=== PATIENT | female | born 1980 | race Caucasian/White ===

== ENCOUNTER 2020-04-19 10:04 | Outpatient (REF) | payer OTHER, SELFPAY ==
--- NOTE | 2020-04-19 | US_ITS ---
EXAMINATION: US THYROID CLINICAL INFORMATION: Thyroid nodule. COMPARISON: Ultrasound soft tissue head/neck thyroid dated 01/14/2019 and 07/04/2017. TECHNIQUE: Linear transducer danielle-scale and color Doppler examination with attention to the region of the thyroid. FINDINGS: SIZE: Measurements of the thyroid lobes and nodules are given in sagittal, anteroposterior and transverse dimensions respectively. Right Thyroid Lobe: 5.2 x 1.5 x 1.6 cm, volume 6.4 mL. Previously 5.9 x 1.4 x 1.4 cm, volume 6.02 mL. Parenchyma: The gland echotexture is homogeneous. Thyroid vascularity is normal. Left Thyroid Lobe: 5.1 x 1.7 x 1.7 cm, volume 7.8 mL. Previously 5.4 x 1.6 x 1.8 cm, volume 8.1 mL. Parenchyma: The gland echotexture is homogeneous. Thyroid vascularity is normal. Isthmus: 0.2 cm in maximum AP dimension. Previously 0.3 cm. RIGHT THYROID LOBE: There is 1 nodule seen. 1. Location: Inferior. Size: 0.8 x 0.7 x 0.6 cm. Previous: 0.8 x 0.8 x 0.6 cm. Nodule characteristics: Isoechoic, smoothly marginated with hypoechoic rind and intranodular flow. ISTHMUS: No nodules. LEFT THYROID LOBE: No nodules. NODES: No lymphadenopathy is seen in the tissue surrounding the thyroid gland. US/US thyroid IMPRESSION: 1. Stable subcentimeter nodule right thyroid gland lower pole. 2. Otherwise unremarkable thyroid ultrasound.
[2020-04-19 12:41] LABS: Free T4 (Free Thyroxine) 0.96 ng/dL (0.71-1.85); Thyroid Stimulating Hormone 1.82 uIU/mL (0.32-4.0); Vitamin D 25-OH Total 33.2 ng/mL (>30)
== END 2020-04-19 10:05 | disposition home or self-care (01) ==
LOC: HO.US 10:04
PROVIDERS: PCP Internal Medicine; Visit Provider Internal Medicine
DX: E04.1 Nontoxic single thyroid nodule (principal); E66.01 Morbid (severe) obesity due to excess calories; E55.9 Vitamin D deficiency, unspecified
CPT/HCPCS: 36415; 76536; 82306; 84439; 84443

== ENCOUNTER 2020-04-25 07:29 | Outpatient (REF) | payer OTHER, SELFPAY ==
[2020-04-25 09:55] LABS: Estimated Average Glucose 117 mg/dL; Hemoglobin A1c % 5.7 %
[2020-04-25 09:59] LABS: Albumin Level 4.1 g/dL (3.5-5.0); Estimated Glomerular Filt Rate > 60; Phosphorus 3.1 mg/dL (2.7-4.5)
[2020-04-25 10:11] LABS: Glucose Fasting 108 mg/dL (60-99)
[2020-04-25 10:14] LABS: Vitamin D 25-OH Total 30.9 ng/mL (>30)
[2020-04-25 11:23] LABS: Glucose 1 Hour 221 mg/dL
[2020-04-25 11:30] LABS: Glucose 2 Hour 160 mg/dL
[2020-04-26 17:01] LABS: PTHI 81 pg/mL (14-64)
[2020-04-26 19:47] LABS: Thyroglobulin Antibodies <1 IU/mL (< or = 1); Thyroid Peroxidase Antibodies 1 IU/mL (<9)
== END 2020-04-25 07:30 | disposition home or self-care (01) ==
LOC: HO.LAB 07:29
PROVIDERS: PCP Internal Medicine; Visit Provider Internal Medicine
DX: E03.9 Hypothyroidism, unspecified (principal); E04.1 Nontoxic single thyroid nodule; E55.9 Vitamin D deficiency, unspecified; E66.01 Morbid (severe) obesity due to excess calories; E21.3 Hyperparathyroidism, unspecified; R13.10 Dysphagia, unspecified
CPT/HCPCS: 36415; 82040; 82306; 82565; 83036; 83970; 84100; 86376; 86800; 99212

== ENCOUNTER 2020-05-02 19:32 | Emergency (ER) | payer OTHER, SELFPAY ==
[2020-05-02 19:37] VITALS: BP 117/75; PULSE 99; RESP 18; TEMP 36.5; O2SAT 99; BMI 52.2
--- NOTE | 2020-05-02 19:40 | ED.GENADULT ---
HPI - General Adult General Chief complaint: Allergic Reaction Stated complaint: Allergic reaction Time Seen by Provider: 05/02/20 19:39 Related Data Home Medications Medication Instructions Recorded Confirmed albuterol sulfate 90 mcg/actuation INHALATION 04/25/20 04/25/20 aerosol inhaler whurrssfyx-psavfsjhdnksi-ekoudeen tab PO 04/25/20 04/25/20 50 mg-325 mg-40 mg tablet docusate sodium 100 mg capsule 100 mg PO DAILY 04/25/20 04/25/20 duloxetine 20 mg capsule,delayed 20 mg PO DAILY 04/25/20 04/25/20 release duloxetine 60 mg capsule,delayed 60 mg PO DAILY 04/25/20 04/25/20 release hydroxyzine pamoate 25 mg capsule 25 mg PO TID 04/25/20 04/25/20 hydroxyzine pamoate 50 mg capsule 50 mg PO TID 04/25/20 04/25/20 lamotrigine 100 mg tablet 100 mg PO BID 04/25/20 04/25/20 levetiracetam 1,000 mg tablet 1,000 mg PO BID 04/25/20 04/25/20 omeprazole 40 mg capsule,delayed 40 mg PO DAILY 04/25/20 04/25/20 release simethicone 80 mg chewable tablet mg PO 04/25/20 04/25/20 zolpidem 10 mg tablet 10 mg PO BEDTIME PRN 04/25/20 04/25/20 Previous Rx's Medication Instructions Recorded fluticasone propionate 110 2 puff PO BID #12 g 04/14/20 mcg/actuation HFA aerosol inhaler cholecalciferol (vitamin D3) 50 50 mcg PO DAILY 30 Days #30 cap 04/25/20 mcg (2,000 unit) capsule Allergies Allergy/AdvReac Type Severity Reaction Status Date / Time shrimp [SHRIMP] Allergy Unknown UNKNOWN Verified 05/02/20 19:37 shellfish Allergy Unknown shortness Uncoded 06/15/19 00:00 of breath PMFSH Past Medical History Medical History Acquired hypothyroidism Bipolar 1 disorder Condyloma acuminata Hyperparathyroidism Hypothyroidism Mild intermittent asthma in adult without complication Morbid obesity Osteoporosis Thyroid nodule Varicose veins of bilateral lower extremities with pain Vitamin D deficiency Surgical History History of section History of partial hysterectomy History of tubal ligation Hx of removal of cyst Family History Family History Father HTN (hypertension) Glaucoma Mental disorder Psoriasis Diabetes Mother Osteoporosis Kidney disease Arthritis Son No problems noted. Son No problems noted. Daughter No problems noted. Social History Social History Smoking Status: Current every day smoker Tobacco Type: Cigarette Packs Per Day: 1 Physical Exam Vital Signs: Vital Signs: Last Vital Signs Temp 97.7 F 05/02/20 19:37 Pulse 99 05/02/20 19:37 Resp 18 05/02/20 19:37 BP 117/75 05/02/20 19:37 Pulse Ox 99 05/02/20 19:37 Body Mass Index 52.2 Course Course Course Narrative: Rapid Medical assessment on arrival to ED: 39 y/o female w/ hx asthma, obesity, bipolar w/ shellfish allergy presenting with SOB, wheezing, N/V and feeling of throat tightness about 15 minutes after eating lobster in a restaurant. Vomited up Benadryl. Upon arrival tachypenic and anxious, upper airway wheeze. IV Benadryl, IV Solumedol and Pepcid ordered. No pharyngeal edema. To go into ER now. Discharge Plan Discharge Prescriptions: No Action Flovent HFA 110 mcg/actuation HFA aerosol inhaler 2 puff PO BID Qty: 12 RF: 2 omeprazole 40 mg capsule,delayed release(DR/EC) 40 mg PO DAILY RF: 0 hydroxyzine pamoate 25 mg capsule 25 mg PO TID RF: 0 hydroxyzine pamoate 50 mg capsule 50 mg PO TID RF: 0 hmefbdxpqz-zxxjzbhcrnxlx-eipl 50-325-40 mg tablet PO RF: 0 levetiracetam 1,000 mg tablet 1,000 mg PO BID RF: 0 duloxetine 60 mg capsule,delayed release(DR/EC) 60 mg PO DAILY RF: 0 lamotrigine 100 mg tablet 100 mg PO BID RF: 0 albuterol sulfate 90 mcg/actuation HFA aerosol inhaler inhalation RF: 0 duloxetine 20 mg capsule,delayed release(DR/EC) 20 mg PO DAILY RF: 0 zolpidem 10 mg tablet 10 mg PO BEDTIME PRNRF: 0 simethicone 80 mg tablet,chewable PO RF: 0 docusate sodium 100 mg capsule 100 mg PO DAILY RF: 0 cholecalciferol (vitamin D3) 50 mcg (2,000 unit) capsule 50 mcg PO DAILY 30 Days Qty: 30 RF: 11
--- NOTE | 2020-05-02 19:52 | ED.ALLEREA ---
HPI - Allergic Reaction General Chief complaint: Allergic Reaction Stated complaint: Allergic reaction Time Seen by Provider: 05/02/20 19:39 Source: patient Limitations: no limitations History of Present Illness HPI narrative: Patient presents to ED for allergic reaction after eating lobster. Patient has known history to fish and ate the lobster. Patient states soon after eating the lobster she felt throat itching, skin itching, and mild shortness of breath. Related Data Home Medications Medication Instructions Recorded Confirmed albuterol sulfate 90 mcg/actuation INHALATION 04/25/20 04/25/20 aerosol inhaler vqxsizrpqh-ntjbpyrbbzvtr-ckypulzx tab PO 04/25/20 04/25/20 50 mg-325 mg-40 mg tablet docusate sodium 100 mg capsule 100 mg PO DAILY 04/25/20 04/25/20 duloxetine 20 mg capsule,delayed 20 mg PO DAILY 04/25/20 04/25/20 release duloxetine 60 mg capsule,delayed 60 mg PO DAILY 04/25/20 04/25/20 release hydroxyzine pamoate 25 mg capsule 25 mg PO TID 04/25/20 04/25/20 hydroxyzine pamoate 50 mg capsule 50 mg PO TID 04/25/20 04/25/20 lamotrigine 100 mg tablet 100 mg PO BID 04/25/20 04/25/20 levetiracetam 1,000 mg tablet 1,000 mg PO BID 04/25/20 04/25/20 omeprazole 40 mg capsule,delayed 40 mg PO DAILY 04/25/20 04/25/20 release simethicone 80 mg chewable tablet mg PO 04/25/20 04/25/20 zolpidem 10 mg tablet 10 mg PO BEDTIME PRN 04/25/20 04/25/20 Previous Rx's Medication Instructions Recorded fluticasone propionate 110 2 puff PO BID #12 g 04/14/20 mcg/actuation HFA aerosol inhaler cholecalciferol (vitamin D3) 50 50 mcg PO DAILY 30 Days #30 cap 04/25/20 mcg (2,000 unit) capsule diphenhydramine HCl [Benadryl] 25 mg PO TID PRN #30 cap 05/02/20 famotidine [Pepcid] 20 mg PO BID #14 tab 05/02/20 prednisone 40 mg PO DAILY #10 tab 05/02/20 Allergies Allergy/AdvReac Type Severity Reaction Status Date / Time shrimp [SHRIMP] Allergy Unknown UNKNOWN Verified 05/02/20 19:37 shellfish Allergy Unknown shortness Uncoded 06/15/19 00:00 of breath Review of Systems Review of Systems: Yes all other systems are reviewed and are negative Constitutional: Constitutional: Reports as per HPI and Reports no additional constitutional complaints Eyes: Eyes: Reports as per HPI and Reports no additional eye complaints ENT: Reports system reviewed and no additional complaints, except as documented and Reports as per HPI Comments: Itchy throat Cardiovascular: Cardiovascular: Reports as per HPI and Reports no additional cardiovascular complaints Respiratory: Respiratory: Reports as per HPI, Reports no additional respiratory complaints and Reports cough Comments: Coughing due to allergic reaction Gastrointestinal: Gastrointestinal: Reports as per HPI and Reports no additional gastrointestinal complaints Musculoskeletal: Musculoskeletal: Reports no additional musculoskeletal complaints and Reports as per HPI Neurologic: Reports system reviewed and no additional complaints, except as documented and Reports as per HPI Psychiatric: Psychiatric: Reports no additional psychiatric complaints and Reports as per HPI [facility] Past Medical History Medical History Acquired hypothyroidism Bipolar 1 disorder Condyloma acuminata Hyperparathyroidism Hypothyroidism Mild intermittent asthma in adult without complication Morbid obesity Osteoporosis Thyroid nodule Varicose veins of bilateral lower extremities with pain Vitamin D deficiency Surgical History History of section History of partial hysterectomy History of tubal ligation Hx of removal of cyst Family History Family History Father HTN (hypertension) Glaucoma Mental disorder Psoriasis Diabetes Mother Osteoporosis Kidney disease Arthritis Son No problems noted. Son No problems noted. Daughter No problems noted. Social History Social History Alcohol intake: never Smoking Status: Current every day smoker Tobacco Type: Cigarette Packs Per Day: 1 Use of substances other than those prescribed or required for medical reasons: No Advance Directives: No Physical Exam Vital Signs: Vital Signs: Last Vital Signs Temp 97.7 F 05/02/20 19:37 Pulse 82 05/02/20 21:52 Resp 16 05/02/20 21:52 BP 125/87 05/02/20 21:52 Pulse Ox 96 05/02/20 21:52 Body Mass Index 52.2 Const: General: cooperative, healthy appearing, comfortable and no acute distress Orientation/consciousness: patient oriented x3 HENMT: Other: Negative for any lip swelling, tongue swelling, uvula swelling. Uvula is midline Head: Yes normal to inspection, Yes No palpable skull fracture present, Yes normocephalic and Yes atraumatic Throat: Yes posterior oropharynx normal, Yes tonsils normal and Yes uvula midline Eyes: General: appearance normal, both eyes and all related structures Neck: Neck: Yes normal visual inspection, Yes full ROM, Yes no lymphadenopathy, Yes no meningeal signs, Yes trachea midline, Yes supple and No tender Chest: Chest palpation & inspection: normal inspection of the chest and normal palpation of entire chest wall Resp: Effort & Inspection: normal respiratory effort and able to speak in complete sentences Auscultation: clear to auscultation bilaterally Cardio: Jugular venous distension: no JVD Heart sounds: S1 normal heart sound present and S2 normal heart sound present GI: Inspection: Yes normal to inspection and No abdominal wall ecchymosis Palpation (GI): Soft to palpation, not firm, nontender, no guarding and not rigid : General: No CVA tenderness and Yes no CVA tenderness Back/Spine/Pelvis: Back: no CVA tenderness, No CVA tenderness and No back tenderness Skin: General skin exam: no rashes or lesions noted and elasticity normal Neuro: General: patient oriented x3, gait normal, no meningeal signs and CN's II-XI intact bilaterally Cranial nerves: Yes CN's II-XII intact bilaterally Extrem: General: Yes normal to inspection and Yes full ROM Course Course Course Narrative: Presently no indication for epinephrine. Patient speaking in full sentences and O2 saturation room air 99%. Negative for any oral swelling. Patient will be given Benadryl, Pepcid, and Solu-Medrol. Reevaluation(s) Reevaluation #1: Patient presently sleeping and not in any distress. Patient allergic reaction has improved. Patient has not had any rash or lip swelling or throat swelling since being here for 2 hours. Patient will be discharged with allergy medications. Time: 21:35 MDM - Allergic Reaction MDM Narrative Medical decision making narrative: Allergic reaction Discharge Plan Discharge Clinical Impression: Allergic reaction Patient Disposition: Home, Self-Care Instructions: General Allergic Reaction (ED) Additional Instructions: Return to the ED for swelling of lips, swelling of lung, shortness of breath, rash, sensation of throat closing, or or any other concerning symptoms. Please follow-up with PCP Prescriptions: New prednisone 20 mg tablet 40 mg PO DAILY Qty: 10 RF: 0 famotidine [Pepcid] 20 mg tablet 20 mg PO BID Qty: 14 RF: 0 diphenhydramine HCl [Benadryl] 25 mg capsule 25 mg PO TID PRN (Reason: allergic reaction) Qty: 30 RF: 0 No Action Flovent HFA 110 mcg/actuation HFA aerosol inhaler 2 puff PO BID Qty: 12 RF: 2 omeprazole 40 mg capsule,delayed release(DR/EC) 40 mg PO DAILY RF: 0 hydroxyzine pamoate 25 mg capsule 25 mg PO TID RF: 0 hydroxyzine pamoate 50 mg capsule 50 mg PO TID RF: 0 qmcvyrbvad-aakmoxlwglmzl-mfqv 50-325-40 mg tablet PO RF: 0 levetiracetam 1,000 mg tablet 1,000 mg PO BID RF: 0 duloxetine 60 mg capsule,delayed release(DR/EC) 60 mg PO DAILY RF: 0 lamotrigine 100 mg tablet 100 mg PO BID RF: 0 albuterol sulfate 90 mcg/actuation HFA aerosol inhaler inhalation RF: 0 duloxetine 20 mg capsule,delayed release(DR/EC) 20 mg PO DAILY RF: 0 zolpidem 10 mg tablet 10 mg PO BEDTIME PRNRF: 0 simethicone 80 mg tablet,chewable PO RF: 0 docusate sodium 100 mg capsule 100 mg PO DAILY RF: 0 cholecalciferol (vitamin D3) 50 mcg (2,000 unit) capsule 50 mcg PO DAILY 30 Days Qty: 30 RF: 11 Interventions: ED Discharge Assessment Last Done: 05/02/20 21:51 Discharge Date/Time: 05/02/20 21:58 Print Language: Greenlandic
[2020-05-02] MEDS: Famotidine/PF 20 MG/2 ML VIAL IVPUSH (19:58)
[2020-05-02] MEDS: methylPREDNISolone Sod Succ/PF 125 MG/2 ML VIAL IVPUSH (19:58)
[2020-05-02] MEDS: diphenhydrAMINE HCL 50 MG/ML VIAL IVPUSH (19:58)
[2020-05-02 21:52] VITALS: BP 125/87; PULSE 82; RESP 16; O2SAT 96
== END 2020-05-02 21:58 | disposition home or self-care (01) ==
PROVIDERS: Emergency Provider Student in an Organized Health Care Education/Training Program
DX: T78.1XXA Other adverse food reactions, not elsewhere classified, initial encounter (principal); Z91.013 Allergy to seafood; X58.XXXA Exposure to other specified factors, initial encounter
CPT/HCPCS: 96374; 96375; 99284; J1200; J2930

== ENCOUNTER → 2020-05-12 10:33 | Outpatient (BNVA) | payer OTHER, SELFPAY | PROVIDERS: PCP Internal Medicine; Visit Provider Physician Assistant | DX: E66.01 Morbid (severe) obesity due to excess calories (principal); Z68.43 Body mass index [BMI] 50.0-59.9, adult | CPT/HCPCS: 99212 ==

== ENCOUNTER → 2020-05-27 08:27 | Outpatient (BNVA) | payer OTHER, SELFPAY | PROVIDERS: PCP Internal Medicine; Visit Provider Dietitian, Registered ==

== ENCOUNTER → 2020-06-02 11:42 | Outpatient (BNVA) | payer OTHER, SELFPAY | PROVIDERS: PCP Internal Medicine; Visit Provider Internal Medicine ==

== ENCOUNTER 2020-06-23 10:03 | Outpatient (REF) | payer OTHER, SELFPAY ==
--- NOTE | ~2020-06-23 | XR_ITS ---
EXAMINATION: XR CHEST CLINICAL INFORMATION: Shortness of breath. COMPARISON: Chest radiograph dated 10/27/2019. TECHNIQUE: 2 views of the chest were obtained. FINDINGS: The lungs are clear. The cardiomediastinal silhouette is normal in size. There is no pleural effusion or pneumothorax. No acute osseous abnormality. XR/XR chest 2V IMPRESSION: No acute cardiopulmonary findings.
--- NOTE | ~2020-06-23 | MM_ITS ---
EXAMINATION: MM SCREENING DIGITAL BREAST TOMOSYNTHESIS, BILATERAL CLINICAL INFORMATION: Screening. Asymptomatic. The lifetime risk of breast cancer based on the Tyrer-Cuzick Model is 18.4%. COMPARISON: Mammography: June 17, 2019 and studies dating back to May 30, 2007 TECHNIQUE: Digital breast tomosynthesis is performed in both the craniocaudal and mediolateral oblique views along with computer-aided detection (CAD). Synthesized 2D images are generated from the tomosynthesis. FINDINGS: There are scattered areas of fibroglandular density (ACR BI-RADS breast composition Category b). There are no significant masses, abnormal calcifications, or other abnormalities. MM/MM tomosynthesis screening BI IMPRESSION: There are no significant changes from prior study. ASSESSMENT: BI-RADS 1: Negative RECOMMENDATION: Routine annual mammography screening. This patient's information was entered into a reminder system with a target due date for their next mammogram.
--- NOTE | 2020-06-23 11:03 | ECG_ITS ---
Test Reason : SOB Blood Pressure : / mmHG Vent. Rate : 092 BPM Atrial Rate : 092 BPM P-R Int : 138 ms QRS Dur : 076 ms QT Int : 346 ms P-R-T Axes : 005 016 047 degrees QTc Int : 427 ms Normal sinus rhythm Normal ECG When compared to the previous EKG of No significant changes seen Referred By: Elly Benoit Electronically Signed By:KENNY WEBSTER MD
[2020-06-23 11:41] LABS: MANUAL DIFF FLAG NO
[2020-06-23 11:53] LABS: Basophils Percent Auto 0.7 % (0-2); Eosinophils Absolute Auto 0.1 X10*3/uL (0.0-0.4); Hematocrit 42.2 % (37-47); Imm Gran Abs Auto 0.02 X10*3/uL (0.00-0.03); Imm Gran Pct Auto 0.3 % (0.0-0.4); Lymphocytes Absolute Auto 1.9 X10*3/uL (1.2-4.9); Lymphocytes Percent Auto 31.7 % (20-40); Mean Corpuscular HGB Conc 33.2 g/dl (31.0-35.0); Mean Corpuscular Volume 96.3 fL (80-98); Mean Platelet Volume 10.5 fL (9.4-12.3); Monocytes Absolute Auto 0.4 X10*3/uL (0.1-1.2); Monocytes Percent Auto 7.2 % (2-11); Neutrophils Absolute Auto 3.5 X10*3/uL (2.0-8.3); Neutrophils Percent Auto 58.1 % (45-73); Platelet Count 310 X10*3/uL (160-400); Red Blood Count 4.38 X10*6/uL (4.20-5.50); Red Cell Distribution Width 12.4 % (11.0-16.0); White Blood Count 6.1 X10*3/uL (4.8-10.8)
[2020-06-23 12:07] LABS: Alanine Aminotransferase 66 U/L (0-31); Albumin Level 4.4 g/dL (3.5-5.0); Alkaline Phosphatase 85 U/L (39-117); Anion Gap 12 (12-20); Aspartate Amino Transferase 27 U/L (5-31); Bilirubin Total 0.3 mg/dL (0.0-1.0); Blood Urea Nitrogen 15 mg/dL (9-16); C Reactive Protein 0.17 mg/dL (< or = 0.50); Calcium 9.1 mg/dL (8.4-10.2); Carbon Dioxide 27 mmol/L (22-29); Chloride 105 mmol/L (96-108); Cholesterol 186 mg/dL; Estimated Glomerular Filt Rate > 60; Glucose Fasting 110 mg/dL (60-99); HDL Cholesterol 42 mg/dL; Iron 63 mcg/dL (30-160); LDL Cholesterol Calculated 124 mg/dl; Percent Iron Saturation 18 % (15-50); Potassium 4.3 mmol/L (3.3-5.1); Sodium 140 mmol/L (135-145); Total Iron Binding Capacity 345 mcg/dL (228-428); Total Protein 7.3 g/dL (6.5-8.0); Triglycerides 103 mg/dL; Unsaturated Iron Binding 282 ug/dL
[2020-06-23 12:30] LABS: Ferritin 25 ng/mL (10-250); TSH reflex Free T4 1.93 uIU/mL (0.32-4.0); Vitamin D 25-OH Total 43.1 ng/mL (>30)
[2020-06-23 12:34] LABS: Alanine Aminotransferase 64 U/L (0-31); Aspartate Amino Transferase 26 U/L (5-31)
[2020-06-23 13:15] LABS: Estimated Average Glucose 117 mg/dL; Hemoglobin A1c % 5.7 %
[2020-06-24 11:32] LABS: Insulin Level Total 20.2 uIU/mL
[2020-06-25 10:31] LABS: Calcium (PTHI) 9.2 mg/dL (8.6-10.2); PTHI 63 pg/mL (14-64)
[2020-06-25 11:13] LABS: Vitamin B12 195 pg/mL (200-900)
[2020-06-27 03:57] LABS: Zinc 70 mcg/dL (60-130)
[2020-06-27 06:17] LABS: Vitamin B1 10 nmol/L (8-30)
[2020-06-29 14:12] LABS: Vitamin A 33 mcg/dL (38-98)
== END 2020-06-23 10:04 | disposition home or self-care (01) ==
LOC: HO.MAMMO 10:03
PROVIDERS: Absent Provider Physician Assistant; PCP Internal Medicine; Visit Provider Internal Medicine
DX: Z12.31 Encounter for screening mammogram for malignant neoplasm of breast (principal); R06.02 Shortness of breath; E66.01 Morbid (severe) obesity due to excess calories; Z68.43 Body mass index [BMI] 50.0-59.9, adult
CPT/HCPCS: 36415; 71046; 77063; 77067; 80053; 80061; 82306; 82607; 82728; 82746; 83036; 83525; 83540; 83970; 84425; 84443; 84450; 84460; 84590; 84630; 85025; 86140; 93005

== ENCOUNTER → 2020-07-01 15:35 | Outpatient (BNVA) | payer OTHER, SELFPAY | PROVIDERS: PCP Internal Medicine; Visit Provider Dietitian, Registered ==

== ENCOUNTER 2020-07-12 14:03 | Outpatient (REF) | payer OTHER, SELFPAY ==
[2020-07-13 15:27] LABS: H Pylori Breath Test DETECTED (NOT DETECTED)
== END 2020-07-12 14:04 | disposition home or self-care (01) ==
LOC: HO.LNP 14:03
PROVIDERS: PCP Internal Medicine; Visit Provider Surgery
DX: E66.01 Morbid (severe) obesity due to excess calories (principal); Z68.43 Body mass index [BMI] 50.0-59.9, adult; E50.9 Vitamin A deficiency, unspecified
CPT/HCPCS: 83013; 99212

== ENCOUNTER → 2020-07-12 15:19 | Outpatient (BNVA) | payer OTHER, SELFPAY | PROVIDERS: PCP Internal Medicine; Visit Provider Surgery | DX: Z01.818 Encounter for other preprocedural examination (principal); E50.9 Vitamin A deficiency, unspecified | CPT/HCPCS: 99211 ==

== ENCOUNTER → 2020-07-19 08:08 | Outpatient (BNVA) | payer OTHER, SELFPAY | PROVIDERS: PCP Internal Medicine; Visit Provider Dietitian, Registered | DX: E66.01 Morbid (severe) obesity due to excess calories (principal) | CPT/HCPCS: 97803 ==

== ENCOUNTER → 2020-08-02 14:28 | Outpatient (BNVA) | payer OTHER, SELFPAY | PROVIDERS: PCP Internal Medicine; Visit Provider Surgery | DX: E66.01 Morbid (severe) obesity due to excess calories (principal); Z68.43 Body mass index [BMI] 50.0-59.9, adult | CPT/HCPCS: 99212 ==

== ENCOUNTER → 2020-08-04 08:10 | Outpatient (BNVA) | payer OTHER, SELFPAY | PROVIDERS: PCP Internal Medicine; Visit Provider Dietitian, Registered | DX: E66.01 Morbid (severe) obesity due to excess calories (principal) ==

== ENCOUNTER 2020-08-23 13:48 | Outpatient (REF) | payer OTHER, SELFPAY ==
[2020-08-24 14:47] LABS: H Pylori Breath Test NOT DETECTED (NOT DETECTED)
== END 2020-08-23 13:49 | disposition home or self-care (01) ==
LOC: HO.LNP 13:48
PROVIDERS: PCP Internal Medicine; Referring Provider Internal Medicine; Visit Provider Surgery
DX: E66.01 Morbid (severe) obesity due to excess calories (principal); Z68.42 Body mass index [BMI] 45.0-49.9, adult; Z11.0 Encounter for screening for intestinal infectious diseases
CPT/HCPCS: 83013; 99211; 99212

== ENCOUNTER → 2020-08-25 08:09 | Outpatient (BNVA) | payer OTHER, SELFPAY | PROVIDERS: PCP Internal Medicine; Visit Provider Dietitian, Registered | DX: E66.01 Morbid (severe) obesity due to excess calories (principal); Z68.42 Body mass index [BMI] 45.0-49.9, adult | CPT/HCPCS: 97803 ==

== ENCOUNTER 2020-09-07 11:15 | Outpatient (REF) | payer OTHER, SELFPAY ==
[2020-09-13 10:17] LABS: Vitamin A 49 mcg/dL (38-98)
== END 2020-09-07 11:16 | disposition home or self-care (01) ==
LOC: HO.LAB 11:15
PROVIDERS: PCP Internal Medicine; Visit Provider Surgery
DX: Z01.818 Encounter for other preprocedural examination (principal); E50.9 Vitamin A deficiency, unspecified
CPT/HCPCS: 36415; 84590

== ENCOUNTER → 2020-09-16 15:20 | Outpatient (BNVA) | payer OTHER, SELFPAY | PROVIDERS: PCP Internal Medicine; Referring Provider Internal Medicine; Visit Provider Surgery | DX: E66.01 Morbid (severe) obesity due to excess calories (principal); Z68.42 Body mass index [BMI] 45.0-49.9, adult | CPT/HCPCS: 99212 ==

== ENCOUNTER → 2020-10-18 08:58 | Outpatient (BNVA) | payer OTHER, SELFPAY | PROVIDERS: PCP Internal Medicine; Referring Provider Internal Medicine; Visit Provider Surgery | DX: E66.01 Morbid (severe) obesity due to excess calories (principal); Z68.42 Body mass index [BMI] 45.0-49.9, adult | CPT/HCPCS: 99212 ==

== ENCOUNTER → 2020-11-15 09:36 | Outpatient (BNVA) | payer OTHER, SELFPAY | PROVIDERS: PCP Internal Medicine; Visit Provider Surgery | DX: E66.01 Morbid (severe) obesity due to excess calories (principal); Z68.42 Body mass index [BMI] 45.0-49.9, adult | CPT/HCPCS: 99212 ==

== ENCOUNTER 2020-11-23 08:07 | Outpatient (REF) | payer OTHER, SELFPAY ==
[2020-11-23 10:15] LABS: Estimated Average Glucose 117 mg/dL; Hemoglobin A1c % 5.7 %
[2020-11-23 10:23] LABS: Alanine Aminotransferase 49 U/L (0-31); Albumin Level 4.1 g/dL (3.5-5.0); Alkaline Phosphatase 75 U/L (39-117); Anion Gap 14 (12-20); Aspartate Amino Transferase 22 U/L (5-31); Bilirubin Total 0.2 mg/dL (0.0-1.0); Blood Urea Nitrogen 13 mg/dL (9-16); Calcium 9.2 mg/dL (8.4-10.2); Carbon Dioxide 24 mmol/L (22-29); Chloride 107 mmol/L (96-108); Estimated Glomerular Filt Rate > 60; Glucose Fasting 111 mg/dL (60-99); Phosphorus 3.9 mg/dL (2.7-4.5); Sodium 141 mmol/L (135-145); Total Protein 6.8 g/dL (6.5-8.0)
[2020-11-23 10:28] LABS: Free T4 (Free Thyroxine) 0.97 ng/dL (0.71-1.85); Thyroid Stimulating Hormone 2.89 uIU/mL (0.32-4.0); Vitamin D 25-OH Total 34.5 ng/mL (>30)
[2020-11-24 15:56] LABS: Calcium (PTHI) 9.1 mg/dL (8.6-10.2); PTHI 46 pg/mL (14-64)
[2020-11-29 19:27] LABS: Cotinine, U <2 ng/mL; Nicotine, U <2 ng/mL
== END 2020-11-23 08:08 | disposition home or self-care (01) ==
LOC: HO.LAB 08:07
PROVIDERS: Internal Medicine; PCP Internal Medicine; Visit Provider Surgery
DX: R73.02 Impaired glucose tolerance (oral) (principal); E03.9 Hypothyroidism, unspecified; E55.9 Vitamin D deficiency, unspecified; Z87.891 Personal history of nicotine dependence
CPT/HCPCS: 36415; 80053; 80323; 82306; 83036; 83970; 84100; 84439; 84443

== ENCOUNTER → 2020-12-01 11:07 | Outpatient (BNVA) | payer OTHER, SELFPAY | PROVIDERS: PCP Internal Medicine; Visit Provider Internal Medicine ==

== ENCOUNTER → 2020-12-02 09:06 | Outpatient (BNVA) | payer OTHER, SELFPAY | PROVIDERS: PCP Internal Medicine; Referring Provider Internal Medicine; Visit Provider Physician Assistant ==

== ENCOUNTER 2020-12-21 14:01 | Inpatient (IN) | payer OTHER, SELFPAY ==
[2020-12-13 13:35] VITALS: BMI 44.2
--- NOTE | 2020-12-15 11:49 | ECG_ITS ---
Test Reason : sob Blood Pressure : / mmHG Vent. Rate : 074 BPM Atrial Rate : 074 BPM P-R Int : 130 ms QRS Dur : 080 ms QT Int : 370 ms P-R-T Axes : -20 021 052 degrees QTc Int : 410 ms Normal sinus rhythm Normal ECG When compared with ECG of 23-JUN-2020 11:13, No significant change was found Referred By: Kacy Hernandez Electronically Signed By:FOREIGN DEAL
[2020-12-15 12:50] LABS: MANUAL DIFF FLAG NO
[2020-12-15 12:56] LABS: Basophils Percent Auto 0.5 % (0-2); Eosinophils Absolute Auto 0.1 X10*3/uL (0.0-0.4); Eosinophils Percent Auto 2.5 % (0-4); Hematocrit 42.1 % (37-47); Hemoglobin 13.9 g/dl (12.0-16.0); Lymphocytes Absolute Auto 2.2 X10*3/uL (1.2-4.9); Lymphocytes Percent Auto 38.9 % (20-40); Mean Corpuscular Hemoglobin 31.6 pg (27.0-33.0); Mean Corpuscular Volume 95.7 fL (80-98); Mean Platelet Volume 10.4 fL (9.4-12.3); Monocytes Absolute Auto 0.4 X10*3/uL (0.1-1.2); Monocytes Percent Auto 6.7 % (2-11); Neutrophils Absolute Auto 2.9 X10*3/uL (2.0-8.3); Neutrophils Percent Auto 51.4 % (45-73); Platelet Count 347 X10*3/uL (160-400); White Blood Count 5.7 X10*3/uL (4.8-10.8)
[2020-12-15 13:01] LABS: Partial Thromboplastin Time 31.6 SEC (24.1-38.0)
[2020-12-15 13:31] LABS: Albumin Level 4.1 g/dL (3.5-5.0); Anion Gap 12 (12-20); Blood Urea Nitrogen 13 mg/dL (9-16); Calcium 9.3 mg/dL (8.4-10.2); Carbon Dioxide 22 mmol/L (22-29); Chloride 107 mmol/L (96-108); Creatinine Clr Calc Pharmacy 122.9; Estimated Glomerular Filt Rate > 60; Glucose Random 113 mg/dL (60-115); Sodium 137 mmol/L (135-145)
[2020-12-15 14:02] LABS: Glucose Urine UA NEG (NEG); Leukocyte Esterase Urine NEG (NEG); Nitrite Urine NEG (NEG); Urine Blood NEG (NEG); Urine Ketones NEG (NEG); Urine Protein NEG (NEG-TRACE)
[2020-12-15 14:05] LABS: Appearance Urine HAZY; Color Urine YELLOW; UPreg QC Valid YES; Urine Pregnancy NEGATIVE (NEGATIVE)
--- NOTE | 2020-12-20 09:35 | P.CONAN_ITS ---
Documented by User: Angelita Andrews NP 12/20/20 09:36 HPI - Anesthesia Eval Consult details Narrative: 40yo F for Gastrectomy Sleeve, EGD, Poss Diaphragmatic Hernia, Poss Ventral Hernia, Poss open PMFSH Active Problems Active Problems: All Active Problems (Updated 12/13/20 @ 13:38 by Pauline Russo RN) Allergy to shellfish (Acute) Vitamin A deficiency (Acute) H. pylori infection (Acute) BMI 45.0-49.9, adult (Acute) History of smoking (Acute) Preoperative examination (Acute) Shortness of breath (Acute) Morbid obesity (Acute) Pseudoseizures (Acute) Impaired glucose tolerance (Acute) BMI 50.0-59.9, adult (Acute) JOHN on CPAP (Acute) Thyroid nodule (Acute) Vitamin D deficiency (Acute) Hypothyroidism (Acute) Osteoporosis (Acute) Varicose veins of bilateral lower extremities with pain (Acute) Mild intermittent asthma in adult without complication (Acute) Acquired hypothyroidism (Acute) Bipolar 1 disorder (Acute) Past Medical History Medical History (Updated 12/13/20 @ 13:38 by Pauline Russo RN) Acquired hypothyroidism Bipolar 1 disorder BMI 50.0-59.9, adult Condyloma acuminata COVID-19 vaccine series completed Head injury Hypothyroidism Impaired glucose tolerance Mild intermittent asthma in adult without complication Morbid obesity JOHN on CPAP Osteoporosis Pre-diabetes Pseudoseizures Thyroid nodule Varicose veins of bilateral lower extremities with pain Vitamin D deficiency Family History Family History Father HTN (hypertension) Glaucoma Mental disorder Psoriasis Diabetes Mother Osteoporosis Kidney disease Arthritis Glaucoma Surgical History Surgical History (Updated 12/12/20 @ 13:07 by Pauline Russo RN) History of section History of endometrial ablation History of partial hysterectomy History of suburethral sling procedure History of tubal ligation Hx of removal of cyst Social History Social History (Updated 12/13/20 @ 13:41 by Pauline Russo RN) Are you a primary customer care associate to a significant other at home: No Do you presently have visiting nurse or other home services: Yes (significant other) Alcohol intake: never Patient Tobacco Use Status: Former Tobacco user Quit Date: 11/14/20 Tobacco use type: Cigarette Cigarette Packs Per Day: 0.25 Cigarettes Per Day: 5.0 Years Smoked: 31 Smoked in Last 30 Days: Yes Use of substances other than those prescribed or required for medical reasons: No Have you been hit, kicked, punched, or otherwise hurt by someone within the past year? If so, by whom?: No Are you DNR?: No Advance Directives: No (states is S.O., but no official from) Advance Directives Information Provided: Yes Advance Directives on File: No Recently lost weight without trying: No Eating poorly because of decreased appetite: No Nutrition Risks: No Nutritional Risk Patient : No FDLMP: N/A-hysterectomy : No Poor oral hygiene: No (upper & lower partial) Meds Allergies Allergy/AdvReac Type Severity Reaction Status Date / Time shellfish derived Allergy Intermediate Shortness Verified 12/13/20 13:42 of Breath/itchy throat Home Medications Medication Instructions Recorded Confirmed Last Taken Type fnsljvtdkn-rvyjndypdzwxr-xstfbofx 1 tab PO DAILY PRN 04/25/20 12/13/20 Unknown History 50 mg-325 mg-40 mg tablet docusate sodium 100 mg capsule 100 mg PO DAILY 04/25/20 12/13/20 Unknown History duloxetine 20 mg capsule,delayed 20 mg PO DAILY 04/25/20 12/13/20 Unknown History release duloxetine 60 mg capsule,delayed 60 mg PO DAILY 04/25/20 12/13/20 Unknown History release lamotrigine 100 mg tablet 100 mg PO BID 04/25/20 12/13/20 12/21/20 History omeprazole 40 mg capsule,delayed 40 mg PO DAILY 04/25/20 12/13/20 12/21/20 History release simethicone 80 mg chewable tablet mg PO 04/25/20 12/01/20 Unknown History zolpidem 10 mg tablet 10 mg PO BEDTIME PRN 04/25/20 12/13/20 Unknown History hydrocortisone 2.5 % topical cream 1 appl TOPICAL BID PRN 07/12/20 12/13/20 Unknown History topiramate 50 mg tablet 50 mg PO BID 08/02/20 12/13/20 12/21/20 History levetiracetam 1,000 mg tablet 750 mg PO BID tab 09/16/20 12/13/20 12/21/20 History polyethylene glycol 3350 17 17 g PO DAILY PRN g 12/01/20 12/01/20 Unknown History gram/dose oral powder albuterol sulfate 90 mcg/actuation 1 inh INHALATION QID 12/21/20 12/21/20 Unknown History aerosol inhaler (ProAir HFA) fluticasone propionate 110 INHALATION 12/21/20 12/21/20 Unknown History mcg/actuation HFA aerosol inhaler Exam Exam Date and Time: December 20, 2020 0935 Height,Weight and Vital Signs: Height 5 ft 3 in Weight 113.398 kg Pertinent Lab Results Pertinent Lab Results: Laboratory Tests 12/15/20 12/15/20 12/15/20 12:20 12:20 12:20 WBC 5.7 RBC 4.40 Hgb 13.9 Hct 42.1 MCV 95.7 MCH 31.6 MCHC 33.0 RDW 12.0 Plt Count 347 MPV 10.4 Immature Gran % (Auto) 0.0 Neut % (Auto) 51.4 Lymph % (Auto) 38.9 [place] % (Auto) 6.7 Eos % (Auto) 2.5 Baso % (Auto) 0.5 Lymph # (Auto) 2.2 [place] # (Auto) 0.4 Eos # (Auto) 0.1 Baso # (Auto) 0.0 Abs Immat Gran (auto) 0.00 Absolute Neuts (auto) 2.9 Absolute Nucleated RBC 0.000 Nucleated RBC % (auto) 0.0 PT 11.0 INR 1.0 APTT 31.6 Sodium Potassium Chloride Carbon Dioxide Anion Gap BUN Creatinine Estim Creat Clear Calc Estimated GFR Random Glucose Calcium Albumin Urine Color YELLOW Urine Appearance HAZY Urine pH 6.0 Ur Specific [place]aird 1.020 Urine Protein NEG Urine Glucose (UA) NEG Urine Ketones NEG Urine Blood NEG Urine Nitrite NEG Ur Leukocyte Esterase NEG Urine Test Blood Type Antibody Screen 12/15/20 12/15/20 12/15/20 12:20 12:20 12:20 WBC RBC Hgb Hct MCV MCH MCHC RDW Plt Count MPV Immature Gran % (Auto) Neut % (Auto) Lymph % (Auto) [place] % (Auto) Eos % (Auto) Baso % (Auto) Lymph # (Auto) [place] # (Auto) Eos # (Auto) Baso # (Auto) Abs Immat Gran (auto) Absolute Neuts (auto) Absolute Nucleated RBC Nucleated RBC % (auto) PT INR APTT Sodium 137 Potassium 4.0 Chloride 107 Carbon Dioxide 22 Anion Gap 12 BUN 13 Creatinine 0.73 Estim Creat Clear Calc 122.9 Estimated GFR > 60 Random Glucose 113 Calcium 9.3 Albumin 4.1 Urine Color Urine Appearance Urine pH Ur Specific [place] Urine Protein Urine Glucose (UA) Urine Ketones Urine Blood Urine Nitrite Ur Leukocyte Esterase Urine Test NEGATIVE Blood Type A Positive Antibody Screen NEGATIVE Narrative Narrative: EKG 12/2020 Vent. Rate : 074 BPM ? ? Atrial Rate : 074 BPM ?? P-R Int : 130 ms? QRS Dur : 080 ms ? ? QT Int : 370 ms ? ? ? P-R-T Axes : -20 021 052 degrees ?? QTc Int : 410 ms ? Normal sinus rhythm Normal ECG When compared with ECG of 23-JUN-2020 11:13, No significant change was found Assessment and Plan Assessment Anesthesia Assessment: Chart Reviewed Documented by User: Hien Parks MD 12/21/20 12:02 [facility] Past Medical History Medical History (Updated 12/13/20 @ 13:38 by Pauline Russo RN) Acquired hypothyroidism Bipolar 1 disorder BMI 50.0-59.9, adult Condyloma acuminata COVID-19 vaccine series completed Head injury Hypothyroidism Impaired glucose tolerance Mild intermittent asthma in adult without complication Morbid obesity JOHN on CPAP Osteoporosis Pre-diabetes Pseudoseizures Thyroid nodule Varicose veins of bilateral lower extremities with pain Vitamin D deficiency Family History Family History Father HTN (hypertension) Glaucoma Mental disorder Psoriasis Diabetes Mother Osteoporosis Kidney disease Arthritis Glaucoma Surgical History Surgical History (Updated 12/12/20 @ 13:07 by Pauline Russo RN) History of section History of endometrial ablation History of partial hysterectomy History of suburethral sling procedure History of tubal ligation Hx of removal of cyst Social History Social History (Updated 12/13/20 @ 13:41 by Pauline Russo RN) Are you a primary customer care associate to a significant other at home: No Do you presently have visiting nurse or other home services: Yes (significant other) Alcohol intake: never Patient Tobacco Use Status: Former Tobacco user Quit Date: 11/14/20 Tobacco use type: Cigarette Cigarette Packs Per Day: 0.25 Cigarettes Per Day: 5.0 Years Smoked: 31 Smoked in Last 30 Days: Yes Use of substances other than those prescribed or required for medical reasons: No Have you been hit, kicked, punched, or otherwise hurt by someone within the past year? If so, by whom?: No Are you DNR?: No Advance Directives: No (states is S.O., but no official from) Advance Directives Information Provided: Yes Advance Directives on File: No Recently lost weight without trying: No Eating poorly because of decreased appetite: No Nutrition Risks: No Nutritional Risk Patient : No FDLMP: N/A-hysterectomy : No Poor oral hygiene: No (upper & lower partial) Meds Allergies Allergy/AdvReac Type Severity Reaction Status Date / Time shellfish derived Allergy Intermediate Shortness Verified 12/13/20 13:42 of Breath/itchy throat Home Medications Medication Instructions Recorded Confirmed Last Taken Type lbmnyanydw-zupmvypecaalu-lcqwnzee 1 tab PO DAILY PRN 04/25/20 12/13/20 Unknown History 50 mg-325 mg-40 mg tablet docusate sodium 100 mg capsule 100 mg PO DAILY 04/25/20 12/13/20 Unknown History duloxetine 20 mg capsule,delayed 20 mg PO DAILY 04/25/20 12/13/20 Unknown History release duloxetine 60 mg capsule,delayed 60 mg PO DAILY 04/25/20 12/13/20 Unknown History release lamotrigine 100 mg tablet 100 mg PO BID 04/25/20 12/13/20 12/21/20 History omeprazole 40 mg capsule,delayed 40 mg PO DAILY 04/25/20 12/13/20 12/21/20 History release simethicone 80 mg chewable tablet mg PO 04/25/20 12/01/20 Unknown History zolpidem 10 mg tablet 10 mg PO BEDTIME PRN 04/25/20 12/13/20 Unknown History hydrocortisone 2.5 % topical cream 1 appl TOPICAL BID PRN 07/12/20 12/13/20 Unknown History topiramate 50 mg tablet 50 mg PO BID 08/02/20 12/13/20 12/21/20 History levetiracetam 1,000 mg tablet 750 mg PO BID tab 09/16/20 12/13/20 12/21/20 History polyethylene glycol 3350 17 17 g PO DAILY PRN g 12/01/20 12/01/20 Unknown History gram/dose oral powder albuterol sulfate 90 mcg/actuation 1 inh INHALATION QID 12/21/20 12/21/20 Unknown History aerosol inhaler (ProAir HFA) fluticasone propionate 110 INHALATION 12/21/20 12/21/20 Unknown History mcg/actuation HFA aerosol inhaler Exam Airway Mallampati Class: III TM Dist: >3cm Neck ROM: Full
--- NOTE | 2020-12-20 15:32 | MHC.SHP ---
Pre-Procedural Eval Section A Date of Service: 12/20/20 Section B Chief Complaint: Morbid Severe Obesity Allergies: Allergies Allergy/AdvReac Type Severity Reaction Status Date / Time shellfish derived Allergy Intermediate Shortness Verified 12/13/20 13:42 of Breath/itchy throat Plan I have reviewed the history and physical and performed a pertinent physical examination on my patient. No changes have occurred unless specified.
[2020-12-21] VITALS (16 sets, daily range): BP systolic 123–176; BP diastolic 64–106; PULSE 82–96; RESP 16–20; TEMP 36.2–36.9; O2SAT 93–100
--- NOTE | 2020-12-21 11:20 | PC.NURSE ---
CALLED LAB AGAIN FOR LAB DRAW.
[2020-12-21 11:27] LABS: COVID-19 Test Negative (Negative); IDNOW Serial# 9DD0AD1C
[2020-12-21] MEDS: Lactated Ringers 1,000 ML 100 ML IVCONT (11:41)
--- NOTE | 2020-12-21 11:42 | PC.NURSE ---
PATIENT NO LONGER HAS EXP WHEEZING THROUGHOUT.
[2020-12-21 11:44] LABS: Glucose, Whole Blood 111 mg/dL (60-115)
[2020-12-21 14:11] LABS: Vitamin A 45 mcg/dL (38-98)
--- NOTE | 2020-12-21 14:27 | P.BOP_ITS ---
Brief Operative Note Date of Service: 12/21/20 Pre-op diagnosis: Morbid obesity, BMI 45.2, and sleep apnea Post-op diagnosis: other (Sane and hiatal hernia) Procedure: Laparoscopic sleeve gastrectomy, hiatal hernia repair, intraoperative endoscopy, and Cristóbal block Surgeon: Kacy Hernandez MD Anesthesia: GETA Was an Dietary Service Aide used for this Procedure?: No Estimated blood loss (mL): 20 Pathology: other (Partial gastrectomy) Condition: stable Disposition: PACU
--- NOTE | 2020-12-21 14:28 | P.OP_ITS ---
Operative Note Operative Note Date of Service: 12/21/20 Narrative: Patient was brought into the operating room and placed on the operating room table in the supine position. General anesthesia was induced. Normal DVT prophylaxis was instituted and the patient received 2 grams of cefotetan preoperatively. The abdomen was then prepped and draped in the normal sterile fashion. A safety time-out was performed. A mixture of 1% lidocaine with epinephrine and ?% Marcaine plain was used to an esthetize the planned incision site in the left upper quadrant. A #11 scalpel was used to make a 5 mm left upper quadrant transverse incision through which a veress needle was placed. Three pops were heard going through the fascia. A saline drop test was used to confirm that the veress needle was intraabdominal. An optiview technique was then used to place a 5mm port in the left upper quadrant. A 5 mm 30 degree laproscope was then placed through this port and the abdominal cavity was surveyed and was normal. The patient was placed in reverse Trendelenburg positioning. A michelle liver retractor was then placed in the subxyphoid position and it was used to hold up the left lobe of the liver to the abdominal wall. This was secured to the bed using the liver retractor spencer. A ERNIE block was then performed for pain control on the right side of the abdomen. A 5 mm port was placed in the right upper quadrant near the falciform ligament. A 12 mm port was then placed in the mid epigastrium. One additional 5 mm port was placed in the left upper quadrant just to the left of the placement of the first port. I then performed a ERNIE block on the left side of the abdomen. I then removed the epigastric fat pad; there was a small anterior hiatal hernia noted. I reapproximated the left and right crura with a total of 2 stitches of 2-0 ethibond and a laparoscopic knot pusher. There was no residual hiatal hernia. I then opened up the angle of His. We then gained entry into the lesser sac about 4-5 cm from the pylorus. I had anesthesia place a 34 [place] orogastric tube into the distal antrum to use as a sizing tool for gastric pouch size. I divided the short gastric vessels up to the angle of His. We then started the creation of the gastric pouch by firing a 60 mm purple load endostapler up the stomach about 4-5 cm from the pylorus. We completed the creation of the gastric pouch using a total of 4 firings of a 60 mm and 1 firing of a 45 mm purple load stapler. We had anesthesia remove the orogastric tube, then we clamped across the distal antrum using a fired 60 mm endostapler. We flattened the patient and then instilled normal saline surrounding the newly created staple line. I then performed an on-table endoscopy. I passed the gastroscopy into the posterior oropharynx and down the esophagus evaluating the esophageal mucosa which was normal. There was no evidence of hiatal hernia. I passed the gastroscope into the gastric pouch and insufflated the gastric pouch. There was healthy pink mucosa and no evidence of active bleeding. There was no evidence of leak on laparosco py. I desufflated the gastric pouch and removed the endoscope. I removed the endostapler from the abdomen and suctioned the fluid from the left upper quadrant. I then removed the partial gastrectomy specimen through the epigastric 12 mm port site. I reapproximated the 12 mm port using a 0 maxon suture with a laparoscopic suture passer. I instilled local anesthetic into the fascial closure site and tied the suture down at a pressure of 8-10 mm of Hg. There was no residual fascial defect. We removed the liver retractor and the left upper quadrant 5 mm ports under direct visualization. There was no evidence of any active bleeding. I desufflated the abdomen through the last remaining port and removed the laparoscope and 5 mm port. We reapproximated all incisions with a 4-0 monocryl subcuticular stitch. We cleaned and dried the abdominal skin and applied dermabond skin glue. All count were correct at the end of the case. The patient was awake and in stable condition prior to extubation and transfer to the recovery room.
--- NOTE | 2020-12-21 14:29 | PM.PNGS ---
Subjective Subjective Date of Service: 12/22/20 Interval history: This is a 40-year-old lady on postoperative day 1. Status post laparoscopic sleeve gastrectomy hiatal hernia repair doing well. Patient is tolerating stage II diet. She has been up and ambulating and using incentive spirometer. Vital signs and blood work are within normal limits for postoperative day 1. Patient denies nausea vomiting. Physical Exam Vital Signs: Vital Signs: Last Vital Signs Temp 98.4 F 12/21/20 10:59 Pulse 82 12/21/20 10:59 Resp 16 12/21/20 10:59 BP 123/72 12/21/20 10:59 Pulse Ox 98 12/21/20 10:59 Body Mass Index 44.2 Const: General: cooperative, healthy appearing, comfortable and no acute distress GI: Other: Abdomen is soft, nondistended, mild appropriate incisional tenderness. Incisions are clean dry intact with Dermabond in place. There is no erythema or drainage. Extrem: General: Yes normal to inspection, Yes full ROM, Yes no clubbing, cyanosis or edema and Yes no calf tenderness Procedures Date of Service Date of Service: 12/22/20 Progress Note: A&P Assessment and plan (1) History of sleeve gastrectomy: Status: Acute Assessment and Plan: This is a 40-year-old lady on postoperative day 1. Status post laparoscopic sleeve gastrectomy and hiatal hernia repair doing well. Patient will be advanced to stage III diet and be discharged home when she is tolerating the diet. Patient will follow-up with Dr. Hernandez in 2 weeks as an outpatient. (2) History of repair of hiatal hernia: Status: Acute (3) BMI 45.0-49.9, adult: Status: Acute (4) Morbid obesity: Status: Acute Fall Risk Details Current Medications: Current Medications Generic Name Dose Route Start Last Admin Trade Name Freq PRN Reason Stop Dose Admin Albuterol Sulfate 2.5 mg 12/21/20 10:37 Albuterol Sulfate (0.083%) 2.5 Mg/3 Ml Vial.Neb INHALE ONCE PRN Shortness of Breath/Wheezing Hydromorphone HCl 0.5 mg 12/21/20 12:02 Hydromorphone Hcl 0.5 Mg/0.5 Ml Syringe IVPUSH Q5M PRN Pain, Severe (Pain Scale 7-10) Protocol Lactated Ringer's 1,000 mls @ 100 mls/hr 12/21/20 10:45 12/21/20 11:41 Lr IVCONT 100 mls/hr .Q10H JOE Administration Promethazine HCl 12.5 mg/ 50.5 mls @ 202 mls/hr 12/21/20 12:02 Sodium Chloride IV ONCE PRN Nausea and Vomiting Ondansetron HCl 4 mg 12/21/20 12:02 Ondansetron Hcl 4 Mg/2 Ml Vial IVPUSH ONCE PRN Nausea and Vomiting Time Spent With Patient Time: Total time spent is greater than 50% in coordination of care (as documented) at patient's floor/unit and/or counseling patient: Time with patient: less than 15 minutes Quality Stroke Does the patient have a stroke diagnosis?: No VTE Prior VTE?: No VTE Risk Level:: Surgical - moderate VTE Device Contraindication: N/A - Device Ordered VTE Drug Contraindication: Treatment Not Indicated
--- NOTE | 2020-12-21 14:35 | P.DS_ITS ---
DS: Providers Provider Date of Service: 12/21/20 Date of admission: 12/21/20 14:01 Date of discharge: 12/22/20 Primary care physician: Yi Montano MD Admitting clinician: Kacy Hernandez Attending physician on admission: Kacy Hernandez Attending physician on discharge: Kacy Hernandez Discharging clinician: Kacy Hernandez DS: Diagnosis Discharge Diagnosis (1) History of sleeve gastrectomy: Status: Acute (2) History of repair of hiatal hernia: Status: Acute (3) BMI 45.0-49.9, adult: Status: Acute (4) Morbid obesity: Status: Acute DS: Summary Hospital Course Hospital Course: This is a 40-year-old lady who was admitted on 12/21/2020 through same-day surgery to undergo laparoscopic sleeve gastrectomy and hiatal hernia repair. Patient did well postoperatively and was sent to the surgical floor overnight. Patient was started on a stage II bariatric diet and did well. Patient was up and ambulating on the day of surgery. On postoperative day 1. Patient was noted to be doing well this tolerating stage II diet was advanced to stage III bariatric diet which she tolerated well. Patient's vital signs and blood work were within normal limits for postoperative day 1 and patient was discharged home. Status at Discharge Functional status at discharge: independent ambulation Overall status at discharge: patient is back to baseline Time Spent with Patient Time attestation: Total time spent providing and/or coordinating discharge services: Discharge coordination time: Less than 30 minutes Quality: Stroke Does the patient have a stroke diagnosis?: No Physical Exam Vital Signs: Vital Signs: Last Vital Signs Temp 97.4 F 12/21/20 14:30 Pulse 87 12/21/20 14:30 Resp 16 12/21/20 14:30 BP 168/87 H 12/21/20 14:30 Pulse Ox 99 12/21/20 14:30 Body Mass Index 44.2 DS: Data Data Completed and Pending Pending studies at discharge: Pending at discharge 12/21/20 14:07 Surgical [PTH] Routine Labs on day of discharge: Laboratory Results - last 24 hr 12/15/20 12/21/20 12/21/20 12:20 10:39 11:39 POC Glucose 111 Vitamin A 45 COVID-19 (OSCAR) Negative COVID-19 Clin Com See Note Discharge Plan Discharge Patient Disposition: Home, Self-Care Discharge Diagnosis: Status post laparoscopic sleeve gastrectomy and hiatal hernia repair Referrals: Yi Montano MD [Primary Care Provider] - 1 Week Discharge Medications: Continued (DME) blood-glucose meter Kit See Rx Instructions .ROUTE .MEDSUPPLY Qty: 1 RF: 0 (DME) lancets [FreeStyle Lancets] 28 gauge misc See Rx Instructions .ROUTE .MEDSUPPLY Qty: 100 RF: 11 albuterol sulfate 90 mcg/actuation HFA aerosol inhaler 2 inh inhalation Q4-6H PRN (Reason: shortness of breath or wheezing) Qty: 8.5 RF: 2 Flovent HFA 110 mcg/actuation HFA aerosol inhaler 2 puff PO BID Qty: 12 RF: 2 (DME) Blood Glucose Test Strip See Rx Instructions .ROUTE .MEDSUPPLY Qty: 100 RF: 11 acetaminophen [Tylenol Extra Strength] 500 mg tablet 1,000 mg PO Q6H PRN (Reason: pain) Qty: 30 RF: 1 simethicone [Gas Relief (simethicone)] 80 mg tablet,chewable 80 mg PO TID-QID PRN (Reason: abdominal distention) Qty: 30 RF: 1 ipratropium-albuterol 0.5 mg-3 mg(2.5 mg base)/3 mL solution for nebulization 3 ml inhalation Q6H PRN (Reason: shortness of breath or wheezing) Qty: 180 RF: 1 ondansetron HCl [Zofran] 4 mg tablet 4 mg PO DAILY PRN (Reason: nausea and vomiting) Qty: 30 RF: 1 (DME) cane See Rx Instructions .Route .MEDSUPPLY Qty: 1 RF: 0 (DME) portable shower hose See Rx Instructions .Route .MEDSUPPLY Qty: 1 RF: 0 (DME) rasied toilet seat with handles See Rx Instructions .Route .MEDSUPPLY Qty: 1 RF: 0 (DME) shower chair with back and handles See Rx Instructions .Route .MEDSUPPLY Qty: 1 RF: 0 (DME) shower mat See Rx Instructions .Route .MEDSUPPLY Qty: 1 RF: 0 diphenhydramine HCl [Benadryl] 25 mg capsule 25 mg PO TID PRN (Reason: allergic reaction) Qty: 30 RF: 0 albuterol sulfate [ProAir HFA] 90 mcg/actuation Hfa Aerosol Inhaler 1 inh INHALATION QID RF: 0 fluticasone propionate 110 mcg/actuation Hfa Aerosol Inhaler INHALATION RF: 0 epinephrine [EpiPen 2-Olayinka] 0.3 mg/0.3 mL auto-injector 0.3 mg IM Q15M PRN (Reason: anaphylaxis) Qty: 2 RF: 1 hydrocortisone 2.5 % cream 1 appl topical BID PRN (Reason: Rash) RF: 0 topiramate 50 mg tablet 50 mg PO BID RF: 0 omeprazole 40 mg capsule,delayed release(DR/EC) 40 mg PO DAILY RF: 0 yjtftzlknm-bxejwapctmdqo-eaho 50-325-40 mg tablet 1 tab PO DAILY PRN (Reason: Migraine Headache) RF: 0 duloxetine 60 mg capsule,delayed release(DR/EC) 60 mg PO DAILY RF: 0 lamotrigine 100 mg tablet 100 mg PO BID RF: 0 duloxetine 20 mg capsule,delayed release(DR/EC) 20 mg PO DAILY RF: 0 zolpidem 10 mg tablet 10 mg PO BEDTIME PRN (Reason: Insomnia) RF: 0 simethicone 80 mg tablet,chewable PO RF: 0 docusate sodium 100 mg capsule 100 mg PO DAILY RF: 0 levetiracetam 1,000 mg tablet 750 mg PO BID RF: 0 polyethylene glycol 3350 17 gram/dose powder 17 g PO DAILY PRNRF: 0 Discontinued cyanocobalamin (vitamin B-12) [Vitamin B-12] 500 mcg tablet 500 mcg PO DAILY Qty: 30 RF: 6 vitamin A palmitate 10,000 unit tablet 20,000 unit PO DAILY 30 Days Qty: 60 RF: 0 phentermine 37.5 mg capsule 37.5 mg PO DAILY Qty: 30 RF: 0 cholecalciferol (vitamin D3) 50 mcg (2,000 unit) capsule 50 mcg PO DAILY 30 Days Qty: 30 RF: 11 metformin 500 mg tablet extended release 24 hr 1,000 mg PO BID 30 Days Qty: 120 RF: 6 Discharge Orders: Discharge Order (Routine); Ordered 12/22/20 Ordered By: Kacy Hernandez Activity on Discharge: No heavy lifting Stand Alone Forms: Patient Portal Discharge page Activity Restrictions/Additional Instructions: No lifting greater than 5 lbs for the next 4 weeks. No driving within 24 hours of taking narcotic pain medications. If you do not move your bowels in the next 2 days, please take milk of magnesia over the counter or MiraLax. Please follow the post op diet and do not advance your diet until you are seen in the office in about 2 weeks. Please walk around your home every hour or two to prevent blood clots from forming in your legs. You do not need to wake from sleeping to walk. Please sleep in a bed or couch to prevent kinking at the hips and knees. Please take your incentive spirometer (your lung coin machine assembler) home with you and use it for the next few days to prevent pneumonias. You may shower, no hot tubs, baths or swimming pools. Please call the office with any questions or concerns such as increasing abdominal pain, fever, chills, shortness of breath, chest pain, leg pain or swelling, or redness or drainage from your incisions. Please stay on stage 3 diet which includes sugar free clear liquids such as ice pops and jello and broth and crystal light. Avoid all carbonation. Please drink 2-3 protein shakes with at least 20-30 grams of protein daily or 2 of the celebrate 4:1 shakes which can be purchased in our office in addition to 1 other protein shake of your choice. celebrate shakes have all of the bariatric vitamins you need if you consume these shakes. If you are drinking other protein shakes, you will need to order the bariatric vitamin Opurity chewable online, or use the celebrate bariatric vitamin and an additional celebrate calcium daily which will provide all the vitamins you need. You may take the bariatric capsule vitamin in about 1 month. Please make sure you are consuming at least 40- 60 ounces of water in addition to your 2-3 protein shakes daily. You do not need to use the medicine cups to drink year shakes or water following discharge. Just drink slowly in order to ensure that she consume all of your liquids for the day. The medicine cups were only to teach you to drink slowly. They are not required at home. Do not hesitate to contact the office with any questions. Care Plan Goals: Achievement of a normal BMI Health Concerns: Morbid obesity Plan of Treatment: Patient is status post sleeve gastrectomy Assessment: Patient is doing well
[2020-12-21] MEDS: HYDROmorphone HCl 0.5 MG/0.5 ML SYRINGE IVPUSH ×2 (14:52→15:15)
[2020-12-21] MEDS: Lactated Ringers 1,000 ML 125 ML IVCONT ×2 (16:20→23:32)
[2020-12-21] MEDS: Famotidine/PF 20 MG/2 ML VIAL IVPUSH ×2 (16:38→20:31)
[2020-12-21] MEDS: lamoTRIgine 100 MG TABLET PO (18:23)
[2020-12-21] MEDS: levETIRAcetam 250 MG TABLET 750 MG PO (19:23)
[2020-12-21] MEDS: Fluticasone Propionate 100 MCG BLST.W.DEV 2 PUFF INHALE (19:49)
[2020-12-21] MEDS: Albuterol Sulfate 90 MCG 8 GM INHALER 2 PUFF INHALE (19:49)
[2020-12-21] MEDS: 0.9 % Sodium Chloride Flush 3 ML SYRINGE IVFLUSH (20:31)
[2020-12-21] MEDS: cefoTEtan disodium 2 GM in 0.9 % Sodium Chloride 50 ML IV (23:32)
[2020-12-22 03:44] VITALS: BP 142/72; PULSE 98; RESP 16; TEMP 36.2; O2SAT 99
[2020-12-22] MEDS: lamoTRIgine 100 MG TABLET PO (06:09)
[2020-12-22] MEDS: levETIRAcetam 250 MG TABLET 750 MG PO (06:09)
[2020-12-22] MEDS: Lactated Ringers 1,000 ML 125 ML IVCONT (06:10)
[2020-12-22 06:48] LABS: Hematocrit 39.5 % (37-47); Mean Corpuscular HGB Conc 32.9 g/dl (31.0-35.0); Mean Corpuscular Hemoglobin 31.6 pg (27.0-33.0); Mean Corpuscular Volume 96.1 fL (80-98); Platelet Count 363 X10*3/uL (160-400); Red Blood Count 4.11 X10*6/uL (4.20-5.50); White Blood Count 13.9 X10*3/uL (4.8-10.8)
[2020-12-22 07:13] LABS: Anion Gap 14 (12-20); Blood Urea Nitrogen 6 mg/dL (9-16); Calcium 9.2 mg/dL (8.4-10.2); Carbon Dioxide 24 mmol/L (22-29); Chloride 105 mmol/L (96-108); Creatinine Clr Calc Pharmacy 121.3; Estimated Glomerular Filt Rate > 60; Glucose Random 105 mg/dL (60-115); Potassium 3.9 mmol/L (3.3-5.1); Sodium 139 mmol/L (135-145)
[2020-12-22 08:00] VITALS: BP 138/70; PULSE 100; RESP 18; TEMP 36; O2SAT 99
[2020-12-22] MEDS: Albuterol Sulfate 90 MCG 8 GM INHALER 2 PUFF INHALE (08:16)
[2020-12-22] MEDS: Fluticasone Propionate 100 MCG BLST.W.DEV 2 PUFF INHALE (08:16)
[2020-12-22 08:19] VITALS: PULSE 90; O2SAT 94
--- NOTE | 2020-12-22 09:02 | MHC.CM.PN ---
PATIENT LIVES WITH HER SPOUSE/HCP. COPY REQUESTED FOR MEDICAL RECORD. SHE IS INDEPENDENT WITH ADLS. PATIENT DOES RELY ON A CANE FOR AMBULATION. SHE REPORTS THAT SHE IS WAITING FOR HER PHARMACY TO SEND HER A WALKER, SHOWER CHAIR AND MAT, AND TOILET RISER. PATIENT IS DISCHARGED HOME WITH NO SERVICE NEEDS. RN AWARE OF PLAN. SPOUSE TO TRANSPORT.
[2020-12-22] MEDS: Famotidine/PF 20 MG/2 ML VIAL IVPUSH (09:08)
[2020-12-22] MEDS: 0.9 % Sodium Chloride Flush 3 ML SYRINGE IVFLUSH (09:08)
[2020-12-22] MEDS: DULoxetine HCl 20 MG CAPSULE.DR PO (09:08)
[2020-12-22] MEDS: DULoxetine HCl 60 MG CAPSULE.DR PO (09:08)
[2020-12-22] MEDS: Topiramate 25 MG TABLET 50 MG PO (09:08)
--- NOTE | 2020-12-22 11:00 | HO.POSTANES ---
Post Anesthesia Evaluation Post Anesthesia Evaluation Vital Signs: Vital Signs Temp Pulse Resp BP Pulse Ox 12/22/20 08:00 96.8 F 100 18 138/70 99 12/22/20 03:44 97.2 F 98 16 142/72 H 99 12/21/20 23:33 97.1 F 90 16 123/76 99 Anesthesia: General Endotracheal-GETA Mental Status: Awake Pain Control: Satisfactory Nausea/Vomiting: None Hydration: Adequate Anesthesia-Related Issues: No Anes. Related Issues
== END 2020-12-22 10:35 | disposition home or self-care (01) | DRG 403 ==
LOC: HO.S3 14:04
PROVIDERS: Admitting Provider Surgery; PCP Internal Medicine; Visit Provider Surgery
PROC: 0DB64Z3 Excision of Stomach, Percutaneous Endoscopic Approach, Vertical (ICD-10-PCS; CPT 43845; principal; 2020-12-21 13:30)
DX: E66.01 Morbid (severe) obesity due to excess calories (principal); E03.9 Hypothyroidism, unspecified; K44.9 Diaphragmatic hernia without obstruction or gangrene; Z68.41 Body mass index [BMI] 40.0-44.9, adult; G47.33 Obstructive sleep apnea (adult) (pediatric); J45.20 Mild intermittent asthma, uncomplicated; Z20.822 Contact with and (suspected) exposure to COVID-19; Z87.891 Personal history of nicotine dependence; Z79.51 Long term (current) use of inhaled steroids; Z79.899 Other long term (current) drug therapy
CPT/HCPCS: 36415; 80048; 81003; 81025; 82040; 82947; 84590; 85025; 85027; 85610; 85730; 86850; 86900; 86901; 87635; 88307; 88342; 93005; 99024; C1776; J0131; J1100; J1170; J2250; J2405; J3010

== ENCOUNTER → 2021-01-06 09:28 | Outpatient (BNVA) | payer OTHER, SELFPAY | PROVIDERS: PCP Internal Medicine; Visit Provider Surgery | DX: Z90.3 Acquired absence of stomach [part of] (principal); Z87.19 Personal history of other diseases of the digestive system; Z98.890 Other specified postprocedural states | CPT/HCPCS: 99212 ==

== ENCOUNTER → 2021-02-17 12:58 | Outpatient (BNVA) | payer OTHER, SELFPAY | PROVIDERS: PCP Internal Medicine; Referring Provider Internal Medicine; Visit Provider Physician Assistant Surgical | DX: E66.9 Obesity, unspecified (principal); Z3A.39 39 weeks gestation of pregnancy | CPT/HCPCS: 99212 ==

== ENCOUNTER → 2021-02-24 08:17 | Outpatient (BNVA) | payer OTHER, SELFPAY | PROVIDERS: PCP Internal Medicine; Referring Provider Internal Medicine; Visit Provider Dietitian, Registered ==

== ENCOUNTER → 2021-03-31 08:04 | Outpatient (BNVA) | payer OTHER, SELFPAY | PROVIDERS: PCP Internal Medicine; Visit Provider Physician Assistant Surgical ==

== ENCOUNTER 2021-04-04 08:01 | Outpatient (REF) | payer OTHER, SELFPAY ==
[2021-04-07 02:22] LABS: HPV mRNA E6/E7 Not Detected (Not Detected)
== END 2021-04-04 08:02 | disposition home or self-care (01) ==
LOC: HO.LAB 08:01
PROVIDERS: PCP Internal Medicine; Visit Provider Obstetrics & Gynecology
DX: Z01.419 Encounter for gynecological examination (general) (routine) without abnormal findings (principal); N94.10 Unspecified dyspareunia; Z11.51 Encounter for screening for human papillomavirus (HPV); R73.03 Prediabetes; E03.9 Hypothyroidism, unspecified; E55.9 Vitamin D deficiency, unspecified; E66.01 Morbid (severe) obesity due to excess calories; J45.20 Mild intermittent asthma, uncomplicated; F31.9 Bipolar disorder, unspecified; F17.210 Nicotine dependence, cigarettes, uncomplicated; Z68.37 Body mass index [BMI] 37.0-37.9, adult; Z98.51 Tubal ligation status; Z90.711 Acquired absence of uterus with remaining cervical stump; Z90.3 Acquired absence of stomach [part of]; Z96.0 Presence of urogenital implants; Z91.013 Allergy to seafood
CPT/HCPCS: 87624; 88142

== ENCOUNTER 2021-04-09 07:17 | Emergency (ER) | payer OTHER, SELFPAY ==
[2021-04-09 07:44] VITALS: BP 112/68; PULSE 90; RESP 16; TEMP 37.1; O2SAT 96
[2021-04-09 08:11] LABS: COVID-19 Test Positive (Negative)
[2021-04-09 10:14] VITALS: BP 113/76; PULSE 85; RESP 18; TEMP 36.1; O2SAT 97; BMI 36.8
--- NOTE | 2021-04-09 10:17 | ED_ITS ---
HPI - General Adult General Chief complaint: Upper Respiratory Symptoms Stated complaint: Cough/Loss of smell&taste/fever Time Seen by Provider: 04/09/21 07:26 Source: patient Mode of arrival: ambulatory History of Present Illness HPI narrative: 40-year-old female with a past medical history of hypothyroid, bipolar, obesity, JOHN on CPAP, asthma,, presenting to the ED complaining of nonproductive cough and fever T-max 103? since last night. Admits tested positive for COVID-19 on 04/07. Denies SOB, CP, pedal edema, recent travel, history of blood clots Onset (ago): day(s) Related Data Home Medications Medication Instructions Recorded Confirmed znwjotnmjc-skjquhkshzhqt-lurdcrao 1 tab PO DAILY PRN 04/25/20 03/31/21 50 mg-325 mg-40 mg tablet duloxetine 20 mg capsule,delayed 20 mg PO DAILY 04/25/20 03/31/21 release duloxetine 60 mg capsule,delayed 60 mg PO DAILY 04/25/20 03/31/21 release lamotrigine 100 mg tablet 100 mg PO BID 04/25/20 03/31/21 zolpidem 10 mg tablet 10 mg PO BEDTIME PRN 04/25/20 03/31/21 hydrocortisone 2.5 % topical cream 1 appl TOPICAL BID PRN 07/12/20 03/31/21 topiramate 50 mg tablet 50 mg PO BID 08/02/20 03/31/21 levetiracetam 1,000 mg tablet 750 mg PO BID tab 09/16/20 03/31/21 polyethylene glycol 3350 17 17 g PO DAILY PRN g 12/01/20 03/31/21 gram/dose oral powder albuterol sulfate 90 mcg/actuation 1 inh INHALATION QID 12/21/20 03/31/21 aerosol inhaler (ProAir HFA) fluticasone propionate 110 INHALATION 12/21/20 03/31/21 mcg/actuation HFA aerosol inhaler calcium citrate 1,000 mg tablet 1,000 mg PO DAILY 01/06/21 03/31/21 zizlxpbm-umhetloq-oiex 45 mg-folic 1 cap PO DAILY cap 01/06/21 03/31/21 acid 800 mcg-vit K 120 mcg capsule (Bariatric Multivitamins) hydroxyzine pamoate 50 mg capsule 50 mg PO TID 04/04/21 levetiracetam 750 mg tablet 750 mg PO BID 04/04/21 Previous Rx's Medication Instructions Recorded diphenhydramine HCl 25 mg capsule 25 mg PO TID PRN #30 cap 05/02/20 (Benadryl) epinephrine 0.3 mg/0.3 mL 0.3 mg (0.3 mL) IM Q15M PRN #2 ea 05/03/20 injection, auto-injector (EpiPen 2-Olayinka) blood-glucose meter #1 ea 06/15/20 lancets 28 gauge (FreeStyle #100 ea 06/27/20 Lancets) blood sugar diagnostic (Blood #100 ea 09/14/20 Glucose Test) acetaminophen 500 mg tablet 1,000 mg PO Q6H PRN #30 tab 11/29/20 (Tylenol Extra Strength) ipratropium 0.5 mg-albuterol 3 mg 3 ml INHALATION Q6H PRN #180 ml 11/29/20 (2.5 mg base)/3 mL nebulization soln simethicone 80 mg chewable tablet 80 mg PO TID-QID PRN #30 tab 11/29/20 (Gas Relief (simethicone)) cane #1 ea 12/14/20 portable shower hose #1 ea 12/14/20 rasied toilet seat with handles #1 ea 12/14/20 shower chair with back and handles #1 ea 12/14/20 shower mat #1 ea 12/14/20 fluticasone propionate 110 2 puff PO BID #12 g 02/07/21 mcg/actuation HFA aerosol inhaler (Flovent HFA) shower grab bar #1 ea 04/05/21 Allergies Allergy/AdvReac Type Severity Reaction Status Date / Time shellfish derived Allergy Intermediate Shortness Verified 04/04/21 08:09 of Breath/itchy throat Review of Systems Review of Systems: Constitutional: + Fever, No Chills ENT/Mouth: No Ear Pain, No Nasal Congestion, No Sinus Pain, No Hoarseness, No sore throat, No Rhinorrhea Cardiovascular: No Chest Pain, No SOB Respiratory: + Cough, No Sputum, No Wheezing Gastrointestinal: No Nausea, No Vomiting, No Diarrhea, No Constipation, No Abdominal pain Genitourinary: No Dysuria, No Urgency, No Flank Pain Musculoskeletal: No joint pain, No Myalgias, No Joint Swelling Skin: No Skin Lesions, No rash Neuro: No Weakness Yes all other systems are reviewed and are negative [facility] Past Medical History Attestation statement: The following information was validated with the patient. Medical History Acquired hypothyroidism Bipolar 1 disorder BMI 50.0-59.9, adult Condyloma acuminata COVID-19 vaccine series completed Head injury Hypothyroidism Impaired glucose tolerance Mild intermittent asthma in adult without complication Morbid obesity JOHN on CPAP Osteoporosis Pre-diabetes Pseudoseizures Thyroid nodule Varicose veins of bilateral lower extremities with pain Vitamin D deficiency Surgical History History of section History of endometrial ablation History of partial hysterectomy History of repair of hiatal hernia History of sleeve gastrectomy History of suburethral sling procedure History of tubal ligation Hx of removal of cyst Family History Family History Father HTN (hypertension) Glaucoma Mental disorder Psoriasis Diabetes Mother Osteoporosis Kidney disease Arthritis Glaucoma Social History Social History Are you a primary behavioral health care coordinator to a significant other at home: No Do you presently have visiting nurse or other home services: Yes (significant other) Alcohol intake: never Patient Tobacco Use Status: Former Tobacco user Quit Date: 11/14/20 Tobacco use type: Cigarette Cigarette Packs Per Day: 0.25 Cigarettes Per Day: 5.0 Years Smoked: 31 Advance Directives: No Advance Directives Information Provided: Yes service: No Current occupational status: disabled Physical Exam Vital Signs: Vital Signs: Last Vital Signs Temp 97 F 04/09/21 10:14 Pulse 85 04/09/21 10:14 Resp 18 04/09/21 10:14 BP 113/76 04/09/21 10:14 Pulse Ox 97 04/09/21 10:14 BMI result Body Mass Index 36.8 Const: General: cooperative, healthy appearing and no acute distress Orientation/consciousness: patient oriented x3 Limitations: no limitations HENMT: Head: Yes normal to inspection Ears: hearing grossly normal bilaterally General nose exam: Normal external nose present Face and sinus: Yes normal facial exam Eyes: General: appearance normal, both eyes and all related structures EOM: EOMs intact bilaterally Neck: Neck: Yes normal visual inspection and Yes no meningeal signs Resp: Effort & Inspection: normal respiratory effort and no respiratory distress Auscultation: clear to auscultation bilaterally, no rales, no rhonchi and no wheezes Cardio: Rate: regular rate Heart sounds: S1 normal heart sound present and S2 normal heart sound present Skin: Rashes: no rashes Wounds: no wounds Neuro: General: patient oriented x3 and no meningeal signs Gait exam (Neuro): Normal gait present Extrem: General: Yes normal to inspection, Yes no pedal edema and Yes no calf tenderness Medical Decision Making MDM Narrative Medical decision making narrative: 40-year-old female with a past medical history of hypothyroid, bipolar, obesity, JOHN on CPAP, asthma,, presenting to the ED complaining of nonproductive cough and fever T-max 103? since last night. on exam vital signs stable, afebrile, NAD/nontoxic, lungs CTA, no pedal edema/calf tenderness on physical exam as above. Concern for viral syn drome/COVID-19. Low concern for pneumonia, PE or ACS plan: COVID-19 testing Medical Records Medical records reviewed: Yes I reviewed the patient's medical records. Lab Data Lab results reviewed: Yes I reviewed the patient's lab results. Labs: Lab Results 04/09/21 Range/Units 07:49 COVID-19 (OSCAR) Positive A (Negative) COVID-19 Clin Com See Note Discharge Plan Discharge Clinical Impression: COVID-19 Patient Disposition: Home, Self-Care Instructions: COVID-19 (Coronavirus Disease 2019) (ED) Additional Instructions: At this time you will be okay for discharge. Please self isolate for 10-14 days. Do not expose yourself to others. You may not go to work or school. Please continue to follow cold instructions and wash your hands frequently. You may take Tylenol / Motrin as directed on the bottle for pain or fever. If you have constant or persistent shortness of breath, fever unresolved with medications, chest pain, or your unable to eat or drink please return to the ED CDC Guidelines for home isolation: - Stay away from others - WEAR A MASK if you are sick AND STAY HOME - Cover your mouth and nose with a tissue when you cough or sneeze. Dispose of tissues in a lined trash can and wash your hands immediately with soap and water for at least 20 seconds. If soap and water are not available, clean hands with alcohol-based hand internet sales consultant that contains at least 60% alcohol. - Clean your hands often with soap and water for at least 20 seconds - Avoid touching your eyes, nose and mouth with unwashed hands - Do not share dishes, drinking glasses, cups, eating utensils, towels, or bedding with other people in your home. After using these items, wash them thoroughly with soap and water or put in the stockbroker. - Clean high-touch surfaces in your isolation area ( sick room and bathroom) every day; let a caregiver clean and disinfect high-touch surfaces in other areas of the home. Clean the area or item with soap and water or another detergent if it is dirty. Then, use a household disinfectant. - Limit contact with pets and animals: If you must care for a pet, wash your hands before and after interacting with them) Prescriptions: No Action (DME) blood-glucose meter Kit See Rx Instructions .ROUTE .MEDSUPPLY Qty: 1 RF: 0 (DME) lancets [FreeStyle Lancets] 28 gauge misc See Rx Instructions .ROUTE .MEDSUPPLY Qty: 100 RF: 11 (DME) Blood Glucose Test Strip See Rx Instructions .ROUTE .MEDSUPPLY Qty: 100 RF: 11 acetaminophen [Tylenol Extra Strength] 500 mg tablet 1,000 mg PO Q6H PRN (Reason: pain) Qty: 30 RF: 1 simethicone [Gas Relief (simethicone)] 80 mg tablet,chewable 80 mg PO TID-QID PRN (Reason: abdominal distention) Qty: 30 RF: 1 ipratropium-albuterol 0.5 mg-3 mg(2.5 mg base)/3 mL solution for nebulization 3 ml inhalation Q6H PRN (Reason: shortness of breath or wheezing) Qty: 180 RF: 1 (DME) cane See Rx Instructions .Route .MEDSUPPLY Qty: 1 RF: 0 (DME) portable shower hose See Rx Instructions .Route .MEDSUPPLY Qty: 1 RF: 0 (DME) rasied toilet seat with handles See Rx Instructions .Route .MEDSUPPLY Qty: 1 RF: 0 (DME) shower chair with back and handles See Rx Instructions .Route .MEDSUPPLY Qty: 1 RF: 0 (DME) shower mat See Rx Instructions .Route .MEDSUPPLY Qty: 1 RF: 0 Flovent HFA 110 mcg/actuation HFA aerosol inhaler 2 puff PO BID Qty: 12 RF: 2 (DME) shower grab bar See Rx Instructions .Route .MEDSUPPLY Qty: 1 RF: 0 diphenhydramine HCl [Benadryl] 25 mg capsule 25 mg PO TID PRN (Reason: allergic reaction) Qty: 30 RF: 0 albuterol sulfate [ProAir HFA] 90 mcg/actuation Hfa Aerosol Inhaler 1 inh INHALATION QID RF: 0 fluticasone propionate 110 mcg/actuation Hfa Aerosol Inhaler INHALATION RF: 0 epinephrine [EpiPen 2-Olayinka] 0.3 mg/0.3 mL auto-injector 0.3 mg IM Q15M PRN (Reason: anaphylaxis) Qty: 2 RF: 1 hydrocortisone 2.5 % cream 1 appl topical BID PRN (Reason: Rash) RF: 0 topiramate 50 mg tablet 50 mg PO BID RF: 0 tjjjmxxwvl-dnvwhjqqwenik-nxgi 50-325-40 mg tablet 1 tab PO DAILY PRN (Reason: Migraine Headache) RF: 0 duloxetine 60 mg capsule,delayed release(DR/EC) 60 mg PO DAILY RF: 0 lamotrigine 100 mg tablet 100 mg PO BID RF: 0 duloxetine 20 mg capsule,delayed release(DR/EC) 20 mg PO DAILY RF: 0 zolpidem 10 mg tablet 10 mg PO BEDTIME PRN (Reason: Insomnia) RF: 0 levetiracetam 1,000 mg tablet 750 mg PO BID RF: 0 polyethylene glycol 3350 17 gram/dose powder 17 g PO DAILY PRNRF: 0 Bariatric Multivitamins 45 mg iron- 800 mcg-120 mcg capsule 1 cap PO DAILY RF: 0 calcium citrate 1,000 mg tablet 1,000 mg PO DAILY RF: 0 hydroxyzine pamoate 50 mg capsule 50 mg PO TID RF: 0 levetiracetam 750 mg tablet 750 mg PO BID RF: 0 Referrals: Yi Montano MD [Primary Care Provider] - 2 weeks (as needed) Stand Alone Forms: Work/School Release
== END 2021-04-09 10:45 | disposition home or self-care (01) ==
PROVIDERS: Emergency Provider Emergency Medicine; PCP Internal Medicine
DX: U07.1 COVID-19 (principal); R43.8 Other disturbances of smell and taste
CPT/HCPCS: 36415; 87635; 99282; 99283

== ENCOUNTER → 2021-05-17 13:00 | Outpatient (BNVA) | payer OTHER, SELFPAY | PROVIDERS: PCP Internal Medicine; Referring Provider Internal Medicine; Visit Provider Physician Assistant Surgical | DX: E66.9 Obesity, unspecified (principal); Z68.36 Body mass index [BMI] 36.0-36.9, adult; Z98.84 Bariatric surgery status | CPT/HCPCS: 99212 ==

== ENCOUNTER 2021-06-14 11:04 | Outpatient (REF) | payer OTHER, SELFPAY ==
--- NOTE | ~2021-06-14 | US_ITS ---
EXAMINATION: US PELVIS CLINICAL INFORMATION: Dyspareunia COMPARISON: Ultrasound pelvis 01/27/2018. TECHNIQUE: Ultrasound of the pelvis is performed using both transabdominal and transvaginal transducers along with Doppler. Transvaginal imaging is performed due to inadequate visualization transabdominally. FINDINGS: Uterus: The uterus has been surgically removed. Adnexa: Both ovaries are visualized. There is normal color flow to the adnexa. There is no ovarian torsion. There is no pelvic ascites or fluid collection. Right ovary measures 2.6 x 2.0 x 2.2 cm and volume 6.0 mL. There are multiple follicles visualized. Previously right ovary measured 3.3 x 2.0 x 2.6 cm. Left ovary is not visualized. There is no free fluid in the cul-de-sac. US/US pelvic and transvaginal IMPRESSION: Small follicular cyst in right ovary. Left ovary is not visualized. The uterus has been surgically removed.
== END 2021-06-14 11:05 | disposition home or self-care (01) ==
LOC: HO.US 11:04
PROVIDERS: PCP Internal Medicine; Visit Provider Obstetrics & Gynecology
DX: N94.10 Unspecified dyspareunia (principal)
CPT/HCPCS: 76830; 76856

== ENCOUNTER → 2021-06-21 12:13 | Outpatient (BNVA) | payer OTHER, SELFPAY | PROVIDERS: Visit Provider Obstetrics & Gynecology ==

== ENCOUNTER 2021-08-09 11:15 | Outpatient (REF) | payer OTHER, SELFPAY ==
--- NOTE | ~2021-08-09 | MM_ITS ---
EXAMINATION: MM SCREENING DIGITAL BREAST TOMOSYNTHESIS, BILATERAL CLINICAL INFORMATION: Screening. Asymptomatic. The lifetime risk of breast cancer based on the Tyrer-Cuzick Model is 17%. COMPARISON: Mammography: 06/23/2020, 06/17/2019, 06/11/2018 TECHNIQUE: Digital breast tomosynthesis is performed in both the craniocaudal and mediolateral oblique views along with computer-aided detection (CAD). Synthesized 2D images are generated from the tomosynthesis. FINDINGS: There are scattered areas of fibroglandular density (ACR BI-RADS breast composition Category b). Parenchymal pattern is similar to prior exams and there is no significant mass or architectural abnormality or abnormal calcifications. Left breast has some intramammary nodes again seen upper outer quadrant. Right breast has several round rim calcifications. The axilla and skin contours are unremarkable. The axilla and skin contours are unremarkable. MM/MM tomosynthesis screening BI IMPRESSION: No mammographic evidence of malignancy. ASSESSMENT: BI-RADS 2: Benign RECOMMENDATION: Routine annual mammography screening. This patient's information was entered into a reminder system with a target due date for their next mammogram.
== END 2021-08-09 11:16 | disposition home or self-care (01) ==
LOC: HO.MAMMO 11:15
PROVIDERS: PCP Internal Medicine; Visit Provider Internal Medicine
DX: Z12.31 Encounter for screening mammogram for malignant neoplasm of breast (principal)
CPT/HCPCS: 77063; 77067

== ENCOUNTER 2022-03-22 08:52 | Outpatient (REF) | payer OTHER, SELFPAY ==
[2022-03-22 10:29] LABS: Cholesterol 188 mg/dL; Glucose Fasting 92 mg/dL (60-99); HDL Cholesterol 43 mg/dL; LDL Cholesterol Calculated 130 mg/dl; Triglycerides 77 mg/dL
[2022-03-22 10:49] LABS: Vitamin D 25-OH Total 26.1 ng/mL (>30)
[2022-03-22 12:19] LABS: Vitamin B12 187 pg/mL (200-900)
[2022-03-22 12:21] LABS: Folate 5.5 ng/mL (> or = 4.0)
== END 2022-03-22 08:53 | disposition home or self-care (01) ==
LOC: HO.LAB 08:52
PROVIDERS: PCP Internal Medicine; Visit Provider Internal Medicine
DX: E53.8 Deficiency of other specified B group vitamins (principal); E55.9 Vitamin D deficiency, unspecified; E66.9 Obesity, unspecified; R73.02 Impaired glucose tolerance (oral); Z90.3 Acquired absence of stomach [part of]
CPT/HCPCS: 36415; 80061; 82306; 82607; 82746; 82947

== ENCOUNTER 2022-04-10 09:26 | Outpatient (REF) | payer OTHER, SELFPAY ==
[2022-04-10 12:38] LABS: TSH reflex Free T4 1.46 uIU/mL (0.32-4.0)
[2022-04-12 06:14] LABS: Follicle Stimulating Hormone 9.9 mIU/mL
== END 2022-04-10 09:27 | disposition home or self-care (01) ==
LOC: HO.LAB 09:26
PROVIDERS: PCP Internal Medicine; Visit Provider Advanced Practice Midwife
DX: R23.2 Flushing (principal); F17.200 Nicotine dependence, unspecified, uncomplicated
CPT/HCPCS: 36415; 83001; 84443

== ENCOUNTER 2022-08-13 09:02 | Outpatient (REF) | payer OTHER, SELFPAY ==
--- NOTE | ~2022-08-13 | MM_ITS ---
EXAMINATION: MM SCREENING DIGITAL BREAST TOMOSYNTHESIS, BILATERAL CLINICAL INFORMATION: Screening. Asymptomatic. The lifetime risk of breast cancer based on the Tyrer-Cuzick Model is 13%. COMPARISON: Mammography: 08/09/2021, 06/23/2020, 06/17/2019, 06/11/2018, 05/30/2017 TECHNIQUE: Digital breast tomosynthesis is performed in both the craniocaudal and mediolateral oblique views along with computer-aided detection (CAD). Synthesized 2D images are generated from the tomosynthesis. Additional right MLO view is provided. FINDINGS: There are scattered areas of fibroglandular density (ACR BI-RADS breast composition Category b). Left CC view has subtle small asymmetric density mid outer breast 12.5 cm from nipple, mid tomographic stack, possibly incompletely compressed glandular tissue or summation artifact. Patient will be recalled for additional imaging. Remainder of the bilateral breasts show no significant changes from prior studies. Again, there are intramammary nodes upper outer quadrant left breast and scattered benign round rim calcifications anterior mid upper right breast. The axilla and skin contours are unremarkable. MM/MM tomosynthesis screening BI IMPRESSION: Left: -Small asymmetric density outer breasts 12.5 cm from nipple, possibly summation artifact or incompletely compressed glandular tissue. Right: -No mammographic evidence of malignancy. ASSESSMENT: BI-RADS 0: Incomplete - Need Additional Imaging Evaluation RECOMMENDATION: 1. Additional views left breast (spot CC, rolled CC x2). 2. Targeted ultrasound if warranted after review of the additional views. 3. Radiology department staff will contact the patient for additional imaging. This patient's information was entered into a reminder system with a target due date for their next mammogram.
== END 2022-08-13 09:03 | disposition home or self-care (01) ==
LOC: HO.MAMMO 09:02
PROVIDERS: PCP Internal Medicine; Visit Provider Internal Medicine
DX: Z12.31 Encounter for screening mammogram for malignant neoplasm of breast (principal)
CPT/HCPCS: 77063; 77067

== ENCOUNTER 2022-08-16 09:24 | Outpatient (REF) | payer OTHER, SELFPAY ==
--- NOTE | ~2022-08-16 | MM_ITS ---
EXAMINATION: MM DIAGNOSTIC DIGITAL BREAST TOMOSYNTHESIS, LEFT US DIAGNOSTIC ULTRASOUND BREAST, LEFT CLINICAL INFORMATION: Recall from screening for question of small asymmetric density outer left breast, possibly summation artifact or incompletely compressed glandular tissue. COMPARISON: Mammography: 08/13/2022, 08/09/2021, 08/23/2020, 06/17/2019, 06/11/2018, 05/30/2017 (new baseline). TECHNIQUE: Digital breast tomosynthesis is performed. 2D images are generated from the tomosynthesis. The following views are obtained: Spot CC, rolled CC x2. Ultrasound left breast is targeted to the upper outer breast using grayscale imaging and color Doppler without and with harmonics. FINDINGS: There are scattered areas of fibroglandular density (ACR BI-RADS breast composition Category b). The additional views show the intramammary nodes in a 5 mm circumscribed nodule in the upper outer breasts similar to prior exams dating back to 2018. There is no architectural abnormality or definite interval focal asymmetric density. Ultrasound demonstrates normal intramammary nodes and a circumscribed 5 mm nodule corresponding to the chronic findings on mammography. There is no significant mass or architectural abnormality or focal duct ectasia. Results are discussed with the patient at time of visit. As a precaution, short interval follow-up left mammography will be requested in 6 months to exclude remote possibility of early occult developing density. MM/MM tomosynthesis added views L IMPRESSION: -Additional views and targeted ultrasound show no significant mass or architectural abnormality or definite focal asymmetric density. ASSESSMENT: BI-RADS 3: Probably Benign RECOMMENDATION: Diagnostic left mammography in 6 months. This patient's information was entered into a reminder system with a target due date for their next mammogram.
== END 2022-08-16 09:25 | disposition home or self-care (01) ==
LOC: HO.MAMMO 09:24
PROVIDERS: PCP Internal Medicine; Visit Provider Internal Medicine
DX: R92.2 Inconclusive mammogram (principal)
CPT/HCPCS: 76642; 77061; 77065

== ENCOUNTER → 2022-09-11 10:24 | Outpatient (BNVA) | payer OTHER, SELFPAY | PROVIDERS: PCP Internal Medicine; Referring Provider Internal Medicine; Visit Provider Physician Assistant Surgical | DX: E66.9 Obesity, unspecified (principal); Z68.38 Body mass index [BMI] 38.0-38.9, adult; Z98.84 Bariatric surgery status | CPT/HCPCS: 99212 ==

== ENCOUNTER → 2022-09-12 09:01 | Outpatient (BNVA) | payer OTHER, SELFPAY | PROVIDERS: PCP Internal Medicine; Visit Provider Internal Medicine | DX: J45.20 Mild intermittent asthma, uncomplicated (principal); G47.33 Obstructive sleep apnea (adult) (pediatric); E66.9 Obesity, unspecified; Z68.38 Body mass index [BMI] 38.0-38.9, adult; F17.210 Nicotine dependence, cigarettes, uncomplicated; Z79.899 Other long term (current) drug therapy; Z90.3 Acquired absence of stomach [part of] | CPT/HCPCS: 99202 ==

== ENCOUNTER → 2022-10-10 09:02 | Outpatient (REF) | payer OTHER, SELFPAY | LOC: HO.SL 09:02 | PROVIDERS: PCP Internal Medicine; Visit Provider Internal Medicine | DX: G47.33 Obstructive sleep apnea (adult) (pediatric) (principal); E66.9 Obesity, unspecified; F17.200 Nicotine dependence, unspecified, uncomplicated; Z90.3 Acquired absence of stomach [part of] | CPT/HCPCS: 95806 ==

== ENCOUNTER 2022-10-15 09:28 | Outpatient (REF) | payer OTHER, SELFPAY | END 2022-10-15 09:29 | disposition home or self-care (01) | LOC: HO.RESP 09:28 | PROVIDERS: PCP Internal Medicine; Visit Provider Internal Medicine | DX: G47.33 Obstructive sleep apnea (adult) (pediatric) (principal); J45.20 Mild intermittent asthma, uncomplicated; E66.9 Obesity, unspecified; F17.200 Nicotine dependence, unspecified, uncomplicated | CPT/HCPCS: 94060; 94727; 94729 ==

== ENCOUNTER 2022-10-29 08:38 | Outpatient (REF) | payer OTHER, SELFPAY ==
--- NOTE | ~2022-10-29 | FL_ITS ---
EXAMINATION: XR GI SERIES CLINICAL INFORMATION: Post gastric sleeve. Nausea and feeling food getting stuck COMPARISON: None available. TECHNIQUE: Double contrast upper GI using thin and thick barium and effervescent granules FINDINGS: Esophageal motility is normal. There is gastroesophageal reflux. There is a small sliding-type hiatal hernia. There are postoperative changes to the stomach following gastric sleeve. No mass, ulcer, stricture or fold thickening is seen. FLUOROSCOPY TIME: 0.6 minutes DOSE AREA PRODUCT: 34.963mGy 7.182Gwcg8 0.6 mins 20 images FL/FL upper GI series IMPRESSION: Postop changes from gastric sleeve. Gastroesophageal reflux. Small sliding-type hiatal hernia.
== END 2022-10-29 08:39 | disposition home or self-care (01) ==
LOC: HO.XRAY 08:38
PROVIDERS: PCP Internal Medicine; Visit Provider Physician Assistant Surgical
DX: Z90.3 Acquired absence of stomach [part of] (principal)
CPT/HCPCS: 74240

== ENCOUNTER → 2022-10-29 08:40 | Outpatient (BNV) | payer OTHER, SELFPAY | PROVIDERS: PCP Internal Medicine; Visit Provider Radiology Diagnostic Radiology | DX: R11.0 Nausea (principal); Z98.84 Bariatric surgery status | CPT/HCPCS: 74246 ==

== ENCOUNTER 2022-10-31 07:17 | Outpatient (REF) | payer OTHER, SELFPAY ==
[2022-10-31 07:32] LABS: MANUAL DIFF FLAG NO
[2022-10-31 07:59] LABS: Basophils Percent Auto 0.5 % (0-2); Eosinophils Absolute Auto 0.1 X10*3/uL (0.0-0.4); Eosinophils Percent Auto 1.6 % (0-4); Hematocrit 40.6 % (37.0-47.0); Hemoglobin 13.3 g/dl (12.0-16.0); Imm Gran Abs Auto 0.03 X10*3/uL (0.00-0.03); Imm Gran Pct Auto 0.4 % (0.0-0.4); Lymphocytes Absolute Auto 2.6 X10*3/uL (1.2-4.9); Lymphocytes Percent Auto 35.3 % (20-40); Mean Corpuscular HGB Conc 32.8 g/dl (31.0-35.0); Mean Corpuscular Hemoglobin 31.4 pg (27.0-33.0); Mean Corpuscular Volume 95.8 fL (80.0-98.0); Mean Platelet Volume 9.9 fL (9.4-12.3); Monocytes Absolute Auto 0.4 X10*3/uL (0.1-1.2); Monocytes Percent Auto 5.2 % (2-11); Neutrophils Absolute Auto 4.2 x10*3/uL (2.0-8.3); Platelet Count 323 X10*3/uL (160-400); Red Blood Count 4.24 X10*6/uL (4.20-5.50); Red Cell Distribution Width 12.5 % (11.0-16.0); White Blood Count 7.4 X10*3/uL (4.8-10.8)
[2022-10-31 08:09] LABS: Estimated Average Glucose 97 mg/dL
[2022-10-31 08:31] LABS: Alanine Aminotransferase 13 U/L (0-31); Albumin Level 3.8 g/dL (3.5-5.0); Alkaline Phosphatase 80 U/L (39-117); Anion Gap 11 (12-20); Aspartate Amino Transferase 13 U/L (5-31); Bilirubin Total 0.3 mg/dL (0.0-1.0); Blood Urea Nitrogen 15 mg/dL (9-16); C Reactive Protein 0.19 mg/dL (< or = 0.50); Calcium 8.8 mg/dL (8.4-10.2); Carbon Dioxide 25 mmol/L (22-29); Chloride 108 mmol/L (96-108); Cholesterol 184 mg/dL; Estimated Glomerular Filt Rate > 60; Glucose Random 98 mg/dL (60-115); HDL Cholesterol 46 mg/dL; Iron 80 mcg/dL (30-160); LDL Cholesterol Calculated 128 mg/dl; Percent Iron Saturation 30 % (15-50); Potassium 3.6 mmol/L (3.3-5.1); Sodium 140 mmol/L (135-145); Total Iron Binding Capacity 270 mcg/dL (228-428); Total Protein 6.7 g/dL (6.5-8.0); Triglycerides 54 mg/dL; Unsaturated Iron Binding 190 ug/dL
[2022-10-31 08:48] LABS: Ferritin 62 ng/mL (10-250); Insulin 5 uU/mL (2-29)
[2022-10-31 09:00] LABS: Folate 6.4 ng/mL (> or = 4.0); Vitamin B12 301 pg/mL (200-900)
[2022-11-03 05:43] LABS: Calcium (PTHI) 8.7 mg/dL (8.6-10.2); PTHI 126 pg/mL (16-77)
[2022-11-04 10:28] LABS: Vitamin B1 11 nmol/L (8-30)
[2022-11-05 14:19] LABS: Zinc 71 mcg/dL (60-130)
[2022-11-08 03:33] LABS: Vitamin A 29 mcg/dL (38-98)
== END 2022-10-31 07:18 | disposition home or self-care (01) ==
LOC: HO.LAB 07:17
PROVIDERS: PCP Internal Medicine; Visit Provider Physician Assistant Surgical
DX: Z90.3 Acquired absence of stomach [part of] (principal)
CPT/HCPCS: 36415; 80053; 80061; 82306; 82607; 82728; 82746; 83036; 83525; 83540; 83970; 84425; 84443; 84590; 84630; 85025; 86140

== ENCOUNTER 2022-11-01 10:06 | Outpatient (AMB) | payer OTHER, SELFPAY ==
--- NOTE | 2022-11-01 10:08 | A.OFFVIS_ITS ---
Intake VS Expanded 11/01/22 10:12 Height 5 ft 3 in Weight 218 lb 3.2 oz BMI 38.6 BP 137/65 Blood Pressure Location Rt brachial Blood Pressure Position Sitting Pulse 66 Pulse Source Pulse Oximeter Temp 97.3 F Temperature Source Temporal Artery Scan Pulse Oximetry 98 Oxygen Delivery Method Room Air Body Fat 94.2 Body Fat Percentage 43.2 Free Fat Mass 123.8 Muscle Mass 117.8 Visceral Mass 11.0 Water Mass 88.4 BMR 1,732 Intake Visit Reasons: (OV) PO LSG 12/21/20 Allergies shellfish derived Allergy (Intermediate, Verified 11/01/22 10:12) Shortness of Breath/itchy throat Medication List - Last Reconciled 11/01/22 by PAULINA Pratt acetaminophen (Tylenol Extra Strength) 1,000 mg (2 x 500 mg) PO Q6H PRN albuterol sulfate 90 mcg/actuation (ProAir HFA) 1 inh inhalation QID 30 days blood sugar diagnostic (Blood Glucose Test strips) daily blood-glucose meter As directed xudtcpspne-nuoldeptfjdlx-gesx 50-325-40 mg 1 tab PO DAILY PRN calcium citrate 1,000 mg PO DAILY [cane As directed] cholecalciferol (vitamin D3) 1,250 mcg PO QWEEK 3 months cyanocobalamin (vitamin B-12) 1,000 mcg IM Q4W diphenhydramine HCl (Benadryl) 25 mg PO TID PRN epinephrine (EpiPen 2-Olayinka) 0.3 mg (0.3 mL) IM Q15M PRN fluticasone propionate 110 mcg/actuation inhalation [grab bar for tub As directed] [hand held shower head As directed] hydrocortisone 2.5% 1 appl topical BID PRN hydroxyzine pamoate 50 mg PO TID inulin 2 grams PO DAILY ipratropium-albuterol 0.5 mg-3 mg(2.5 mg base)/3 mL 3 mL inhalation Q6H PRN lamotrigine 100 mg PO BID lancets (FreeStyle Lancets) Once daily levetiracetam 750 mg PO BID hwdjxiodghyr-qfe-bsbt-FA-vit K 45 mg iron- 800 mcg-120 mcg (Bariatric Multivitamins) 1 cap PO DAILY [portable shower hose As directed] [rasied toilet seat with handles As directed] [shower chair with back and handles As directed] [shower grab bar As directed] [shower mat As directed] zolpidem 10 mg PO BEDTIME PRN HPI HPI Comments History of Present Illness Details This?is a?42?yo female who is s/p LSG 12/21/2020. Presents in followup after UGI performed to rule out stricture as she had been complaining of vomiting with certain foods. Present meal plan includes: (created after last visit to help avoid vomiting) 8-10am Fairlife shake 12pm Maced[place] yogurt 2-4pm Fairlife shake 6pm dinner- 3oz soft protein, can have 3oz cooked veg if she wants but always eat protein first has not been eating yogurt but says it would go down fine if smooth; if any chunks in it, she continues to have difficulty. Continues to drink shakes, goes slow with them and is mindful of pace of drinking. Can eat chicken, has to chew very well. Has been using Premier shakes instead of Fairlife. Red meats, pastas, rice give her the most trouble. Pt does admit she smokes. All meals last 20 - 30 minutes and does not drink and eat at the same time. Exercise routine includes: none [facility] Medical History (Updated 09/12/22 @ 09:49 by Luis Reina MD) Acquired hypothyroidism Bipolar 1 disorder BMI 50.0-59.9, adult Condyloma acuminata COVID-19 vaccine series completed Head injury Hypothyroidism Impaired glucose tolerance Mild intermittent asthma in adult without complication Morbid obesity Obesity (BMI 30-39.9) JOHN (obstructive sleep apnea) JOHN on CPAP Pre-diabetes Pseudoseizures Smoking Thyroid nodule Varicose veins of bilateral lower extremities with pain Vitamin D deficiency Surgical History History of section History of endometrial ablation History of partial hysterectomy History of repair of hiatal hernia History of sleeve gastrectomy History of suburethral sling procedure History of tubal ligation Hx of removal of cyst Family History Father HTN (hypertension) Glaucoma Mental disorder Psoriasis Diabetes Mother Osteoporosis Kidney disease Arthritis Glaucoma Social History (Reviewed 11/01/22 @ 10:12 by DARRYL Bruno Household Members: Significant Other Housing: Apartment Are you a primary manager progressive care to a significant other at home: No Do you presently have visiting nurse or other home services: Yes (significant other) Alcohol intake: current Alcohol intake frequency: holidays/special occasions only Patient Tobacco Use Status: Current everyday Tobacco user Tobacco use type: Cigarette Cigarette Packs Per Day: 0.25 Cigarettes Per Day: 4 Years Smoked: 31 e-Cigarette/Vaping Use: Never Used service: No Current occupational status: disabled Sexual orientation: Straight/Heterosexual Gender identity: Female Cognitive needs: No Hearing needs: No Vision needs: Yes Physical Exam Vital Signs: Last Vital Signs Temp 97.3 F 11/01/22 10:12 Pulse 66 11/01/22 10:12 BP 137/65 11/01/22 10:12 Pulse Ox 98 11/01/22 10:12 Oxygen Delivery Method Room Air 11/01/22 10:12 BMI result Body Mass Index 38.6 Assessment & Plan Assessment & Plan (1) History of sleeve gastrectomy: Code(s): Z90.3 - Acquired absence of stomach [part of] (2) Obesity (BMI 30-39.9): Code(s): E66.9 - Obesity, unspecified Plan Recommend endoscopy to assess stomach and rule out recurrent hiatal hernia. Wi ll discuss with Dr. Rosales. Reviewed exercise as necessary to weight loss and also reviewed the dangers of smoking after bariatric surgery, encouraged pt to quit. RTC after discussion of endoscopy. Patient is obese and is not considered stable at this time. I spent a total of 30 minutes reviewing/updating records, examining the patient and counseling the patient on weight management as detailed above. Coding Level of Care Code Est Pt Level 4 (46193) Diagnoses History of sleeve gastrectomy Z90.3 Obesity (BMI 30-39.9) E66.9
[2022-11-01 10:12] VITALS: BP 137/65; PULSE 66; TEMP 36.3; O2SAT 98; BMI 38.6
== END 2022-11-01 11:22 | disposition home or self-care (01) ==
PROVIDERS: PCP Internal Medicine; Visit Provider Physician Assistant Surgical
DX: E66.9 Obesity, unspecified (principal); Z68.38 Body mass index [BMI] 38.0-38.9, adult; Z90.3 Acquired absence of stomach [part of]; Z98.84 Bariatric surgery status
CPT/HCPCS: 99214

== ENCOUNTER → 2022-11-01 10:06 | Outpatient (BNVA) | payer OTHER, SELFPAY | PROVIDERS: PCP Internal Medicine; Visit Provider Physician Assistant Surgical | DX: E66.9 Obesity, unspecified (principal); Z90.3 Acquired absence of stomach [part of]; Z68.38 Body mass index [BMI] 38.0-38.9, adult | CPT/HCPCS: 99212 ==

== ENCOUNTER 2022-11-08 14:57 | Outpatient (AMB) | payer OTHER, SELFPAY ==
--- NOTE | 2022-11-08 15:20 | MHC.OFFVISWM ---
Intake VS Expanded 11/08/22 15:23 Height 5 ft 3 in Weight 221 lb 12.56 oz BMI 39.3 BP 125/75 Blood Pressure Location Lt brachial Blood Pressure Position Sitting Pulse 90 Intake Visit Reasons: (OV) PO LSG 12/21/20 Intake Note: Patient is seen in office for post op visit, post LSG on 12/21/20. Patient c/o: denies any new concerns Health Technician Required: No Mine Safety Manager: Mine Safety Manager offered & declined Accompanied by: Self / Same As Patient Allergies shellfish derived Allergy (Intermediate, Verified 11/01/22 10:12) Shortness of Breath/itchy throat Medication List - Last Reconciled 11/08/22 by Leroy Rosales MD acetaminophen (Tylenol Extra Strength) 1,000 mg (2 x 500 mg) PO Q6H PRN albuterol sulfate 90 mcg/actuation (ProAir HFA) 1 inh inhalation QID 30 days blood sugar diagnostic (Blood Glucose Test strips) daily blood-glucose meter As directed cuqyplzszb-gmtddjhajeohs-uxpn 50-325-40 mg 1 tab PO DAILY PRN calcium citrate 1,000 mg PO DAILY [cane As directed] cholecalciferol (vitamin D3) 1,250 mcg PO QWEEK 3 months cyanocobalamin (vitamin B-12) 1,000 mcg IM Q4W diphenhydramine HCl (Benadryl) 25 mg PO TID PRN epinephrine (EpiPen 2-Olayinka) 0.3 mg (0.3 mL) IM Q15M PRN fluticasone propionate 110 mcg/actuation inhalation [grab bar for tub As directed] [hand held shower head As directed] hydrocortisone 2.5% 1 appl topical BID PRN hydroxyzine pamoate 50 mg PO TID inulin 2 grams PO DAILY ipratropium-albuterol 0.5 mg-3 mg(2.5 mg base)/3 mL 3 mL inhalation Q6H PRN lamotrigine 100 mg PO BID lancets (FreeStyle Lancets) Once daily levetiracetam 750 mg PO BID gyopwiqquret-ori-qjlk-FA-vit K 45 mg iron- 800 mcg-120 mcg (Bariatric Multivitamins) 1 cap PO DAILY [portable shower hose As directed] [rasied toilet seat with handles As directed] [shower chair with back and handles As directed] [shower grab bar As directed] [shower mat As directed] zolpidem 10 mg PO BEDTIME PRN HPI HPI Comments History of Present Illness Details The patient is a 42-year-old woman who entered the surgical weight loss program in 2020 with a BMI of 50.8/weight of 286.9 lb. She preoperatively lost weight and subsequently underwent a laparoscopic sleeve gastrectomy on 12/21/2020 with an anterior hiatal hernia repair. Postoperatively, the patient lost weight down to 208 lb on 05/17/2021 as recorded in the bariatric records here at [place], however the patient's surgeon, Kacy Ferro MD, saw her at [facility] on 10/17/2021 and noted that the patient was up 3 lb from a low of 205 lb. The patient was offered an court deputy today but declined. The patient reports subjective dysphagia with certain foods. There is no problem with cervical engagement of swallowing per the patient. She has no issues regarding liquid consumption and is tolerating her protein shakes but notes that if she eats cauliflower rice, dried chicken or meets but she has issues with dysphagia. She also notes that there are issues within her family and friends encouraging her to eat more. She is currently smoking cigarettes. The patient has had progressive weight gain and has noted symptoms of dysphagia, hoarseness and morning cough and vomiting after certain foods. The patient acknowledges that the symptoms started is she started gaining weight but notes that she only started recently smoking in the past year. She has an appointment with her PCP on November 12 to discuss nicotine cessation options. The patient [place] [facility] [place] which noted normal esophageal motility and a small hiatal hernia. [facility] Medical History (Updated 11/08/22 @ 15:27 by Leroy Rosales MD) Acquired hypothyroidism Bipolar 1 disorder BMI 50.0-59.9, adult Condyloma acuminata COVID-19 vaccine series completed Head injury Hypothyroidism Impaired glucose tolerance Mild intermittent asthma in adult without complication Morbid obesity Obesity (BMI 30-39.9) JOHN (obstructive sleep apnea) JOHN on CPAP Pre-diabetes Pseudoseizures Smoking Thyroid nodule Varicose veins of bilateral lower extremities with pain Vitamin D deficiency Surgical History (Updated 11/06/22 @ 11:19 by DOMINIC Herron) History of section History of endometrial ablation History of partial hysterectomy History of repair of hiatal hernia History of sleeve gastrectomy (12/21/20) History of suburethral sling procedure History of tubal ligation Hx of removal of cyst Family History Father HTN (hypertension) Glaucoma Mental disorder Psoriasis Diabetes Mother Osteoporosis Kidney disease Arthritis Glaucoma Social History Household Members: Significant Other Housing: Apartment Are you a primary pet caretaker to a significant other at home: No Do you presently have visiting nurse or other home services: Yes (significant other) Alcohol intake: current Alcohol intake frequency: holidays/special occasions only Patient Tobacco Use Status: Current everyday Tobacco user Tobacco use type: Cigarette Cigarette Packs Per Day: 0.25 Cigarettes Per Day: 4 Years Smoked: 31 e-Cigarette/Vaping Use: Never Used service: No Current occupational status: disabled Sexual orientation: Straight/Heterosexual Gender identity: Female Cognitive needs: No Hearing needs: No Vision needs: Yes Review of Systems Const All systems reviewed & are unremarkable except as noted in HPI and below Reports as per HPI Physical Exam On exam she is nontoxic and in good spirits Sclera anicteric Neck is supple with no masses or adenopathy Heart is regular, normal S1-S2 with no rubs or murmurs Lungs are clear and equal anteriorly Abdomen is obese but soft with no tenderness Results Reviewed Results Reviewed: 10/29/2022 UGI small recurrent hiatal hernia, normal esophageal motility and postoperative change from sleeve gastrectomy Labs dated 10/31/2022 Hemoglobin is 13.3 with normal indices, Plts 323K, wbc 7.4 Fe WNL Electrolytes within normal parameters Assessment & Plan Assessment & Plan (1) Obesity (BMI 30-39.9): Comment: Patient had previous history of gastric Sleeve. Has regained lot of weight and is. Now active in the weight management program Code(s): E66.9 - Obesity, unspecified (2) Hiatal hernia: Code(s): K44.9 - Diaphragmatic hernia without obstruction or gangrene (3) JOHN (obstructive sleep apnea): Comment: Past history of JOHN which improved after initial gastric sleeve surgery, Now after gaining the weight back she has become symptomatic. She does have history of disturb sleep with excessive snoring and daytime somnolence ESS=14 She would need a new sleep study and then to be started on CPAP therapy. Code(s): G47.33 - Obstructive sleep apnea (adult) (pediatric) (4) Smoking: Comment: Smokes 1 pack of cigarettes a day. Had good discussion with her and she must try to quit, in the meantime she will try to cut down the number of cigarettes as much as possible. Code(s): F17.200 - Nicotine dependence, unspecified, uncomplicated (5) History of sleeve gastrectomy: Onset Date: 12/21/20 Code(s): Z90.3 - Acquired absence of stomach [part of] (6) Bipolar 1 disorder: Comment: sees therapist and sanam (psych) in [facility] Code(s): F31.9 - Bipolar disorder, unspecified Plan I suspect the patient's symptoms are most likely from both weight regain following bariatric surgery and her recurrent hiatal hernia as well as her ongoing nicotine use. The importance of nicotine cessation given its as a production, her recurrent hernia and symptoms was reviewed and apparently understood. I have ordered Protonix, 40 mg a day to be started Options regarding management at this point were reviewed with the patient. The option of following up after nicotine cessation and additional weight loss was discussed but declined by the patient. I have recommended an upper endoscopy/EGD with biopsies to evaluate the extent of her hiatal hernia, any esophageal mucosal injury from acid production and reflux and also perform biopsies to assess for H pylori or gastritis. I will also assess the morphology of her sleeve. The inherent risks to this procedure including but not limited to: Bleeding, aspiration, need for another procedure if bleeding were to persist, the possible but unlikely need for a blood transfusion or emergent surgery was also discussed and apparently understood. The option of evaluation by a pharmacy general manager was offered but declined. Explained the importance of ongoing weight loss before considering reoperation since she is already had a failed hiatal hernia repair, likely due to weight gain. The option of returning to her surgeon at [facility] was also discussed but declined by the patient. I'll see the patient back a week after her upper endoscopy to review biopsies. Medications: New pantoprazole 40 mg PO DAILY 30 tabs 2RF Coding Level of Care Code Est Pt Level 4 (27590) Diagnoses Obesity (BMI 30-39.9) E66.9 Hiatal hernia K44.9 JOHN (obstructive sleep apnea) G47.33 Smoking F17.200 History of sleeve gastrectomy Z90.3 Bipolar 1 disorder F31.9
[2022-11-08 15:23] VITALS: BP 125/75; PULSE 90; BMI 39.3
== END 2022-11-08 16:20 | disposition home or self-care (01) ==
PROVIDERS: PCP Internal Medicine; Visit Provider Surgery
DX: E66.9 Obesity, unspecified (principal); Z68.39 Body mass index [BMI] 39.0-39.9, adult; Z90.3 Acquired absence of stomach [part of]; Z98.84 Bariatric surgery status; G47.33 Obstructive sleep apnea (adult) (pediatric); K44.9 Diaphragmatic hernia without obstruction or gangrene; F17.200 Nicotine dependence, unspecified, uncomplicated; F31.9 Bipolar disorder, unspecified
CPT/HCPCS: 99214

== ENCOUNTER → 2022-11-08 14:57 | Outpatient (BNVA) | payer OTHER, SELFPAY ==
--- NOTE | 2022-11-13 08:03 | P.OP_ITS ---
Operative Note Operative Note Narrative: Preop diagnosis: [GERD, s/p sleeve gastrectomy & recurrent hiatal hernia] Postop diagnosis: [] Procedure: [] Surgeon: Leroy Rosales MD Assist: [none] Anesthesia: [] Estimated blood loss: [3cc] Specimen: [] Intraoperative findings: [] Indications: [The patient is a 42-year-old woman who is status post laparoscopic sleeve gastrectomy with an anterior hiatal hernia repair with weight gain, GERD and recurrent hiatal hernia on upper GI. Patient is continuing to smoke cigarettes and reports GERD symptoms including regurgitation but no hematemesis. Options in management including weight loss, nicotine cessation and evaluation by a glass or mirror inspector were reviewed with the patient. I recommended nicotine cessation and ongoing weight loss but recommended an EGD to assess her anatomy in case there was a structure of anomaly from her sleeve that was contributing to her symptoms. The inherent risks of bleeding, aspiration, perforation or injury that could require surgery, risk of blood transfusion, possibility of no change in her management was discussed and apparently understood. Patient seemed understand and wanted to proceed.] Procedure: []
--- NOTE | 2022-11-13 08:03 | MHC.SHP ---
Pre-Procedural Eval Section A Date of Service: 11/13/22 The patient is an INPATIENT: No The History & Physical has been completed within 30 days and I have reviewed it.: Yes Section B Chief Complaint: (OV) PO LSG 12/21/20 Allergies: Allergies Allergy/AdvReac Type Severity Reaction Status Date / Time shellfish derived Allergy Intermediate Shortness Verified 11/12/22 11:35 of Breath/itchy throat Plan I have reviewed the history and physical and performed a pertinent physical examination on my patient. No changes have occurred unless specified. Time Spent With Patient Time: Total time managing care of this patient today ____ minutes.
== END | disposition home or self-care (01) ==
PROVIDERS: PCP Internal Medicine; Visit Provider Surgery
DX: E66.9 Obesity, unspecified (principal); K44.9 Diaphragmatic hernia without obstruction or gangrene; G47.33 Obstructive sleep apnea (adult) (pediatric); F17.210 Nicotine dependence, cigarettes, uncomplicated; Z68.39 Body mass index [BMI] 39.0-39.9, adult; Z90.3 Acquired absence of stomach [part of]
CPT/HCPCS: 99212

== ENCOUNTER 2022-11-12 11:00 | Outpatient (AMB) | payer OTHER, SELFPAY ==
--- NOTE | 2022-11-12 11:09 | A.OFFPC_ITS ---
Vital Signs 11/12/22 11:26 Height 5 ft 3 in Weight 222 lb BMI 39.3 BP 110/70 Blood Pressure Location Rt brachial Position Sitting Pulse 78 Pulse Source Pulse Oximeter Pulse Oximetry (%) 99 Oxygen Delivery Method Room Air Intake Visit Reasons: 6m Intake Note: Pt is here for her 6 months f/u lab Allergies shellfish derived Allergy (Intermediate, Verified 11/12/22 11:35) Shortness of Breath/itchy throat Medication List - Last Reconciled 11/12/22 by Yi Montano MD acetaminophen (Tylenol Extra Strength) 1,000 mg (2 x 500 mg) PO Q6H PRN albuterol sulfate 90 mcg/actuation (ProAir HFA) 1 inh inhalation QID 30 days blood sugar diagnostic (Blood Glucose Test strips) daily blood-glucose meter As directed hsgadbukjs-pephaxggtqjqw-ikde 50-325-40 mg 1 tab PO DAILY PRN calcium citrate 1,000 mg PO DAILY [cane As directed] cholecalciferol (vitamin D3) 1,250 mcg PO QWEEK 3 months cyanocobalamin (vitamin B-12) 1,000 mcg IM Q4W diphenhydramine HCl (Benadryl) 25 mg PO TID PRN epinephrine (EpiPen 2-[place]) 0.3 mg (0.3 mL) IM Q15M PRN fluticasone propionate 110 mcg/actuation inhalation [grab bar for tub As directed] [hand held shower head As directed] hydrocortisone 2.5% 1 appl topical BID PRN hydroxyzine pamoate 50 mg PO TID inulin 2 grams PO DAILY ipratropium-albuterol 0.5 mg-3 mg(2.5 mg base)/3 mL 3 mL inhalation Q6H PRN lamotrigine 100 mg PO BID lancets (FreeStyle Lancets) Once daily levetiracetam 750 mg PO BID joharyjnpphm-wnm-imlh-FA-vit K 45 mg iron- 800 mcg-120 mcg (Bariatric Multivitamins) 1 cap PO DAILY pantoprazole 40 mg PO DAILY [portable shower hose As directed] [rasied toilet seat with handles As directed] [shower chair with back and handles As directed] [shower grab bar As directed] [shower mat As directed] zolpidem 10 mg PO BEDTIME PRN Tobacco use date assessed: 11/12/22 Dental Screening Dental Screen Date: 11/12/22 Did you have a dental visit in the last 12 months?: No Was dental information given to patient?: Patient has dentist HPI 6m HPI Details 42-year-old lady with acquired hypothyroidism, mild intermittent asthma, bipolar 1 disorder history of pseudoseizures, and history sleeve gastrectomy, here today for follow-up on her thyroid. She has been feeling well, but he is getting frustrated that she is starting to gain weight again despite adhering to recommended diet and getting regular exercise. She had recent fasting labs done ordered by her surgeon, which showed her thyroid levels within normal limits, but has elevated parathyroid hormone with normal serum calcium levels, and low vitamin-D . She has already been started on high-dose vitamin-D 3 supplementation to take once a week for the next 3 months. She is also here for to receive her monthly B12 injections She also has been having at difficult time quitting smoking, now down to just to cigarettes a day, would like to try again using the nicotine patch to help quit. [facility] Medical History (Updated 11/12/22 @ 12:01 by Yi Montano MD) Acquired hypothyroidism Bipolar 1 disorder BMI 50.0-59.9, adult Cigarette smoker motivated to quit Condyloma acuminata COVID-19 vaccine series completed Elevated parathyroid hormone Head injury Hypothyroidism Impaired glucose tolerance Mild intermittent asthma in adult without complication Morbid obesity Obesity (BMI 30-39.9) JOHN (obstructive sleep apnea) JOHN on CPAP Pre-diabetes Pseudoseizures Smoking Thyroid nodule Varicose veins of bilateral lower extremities with pain Vitamin D deficiency Surgical History History of section History of endometrial ablation History of partial hysterectomy History of repair of hiatal hernia History of sleeve gastrectomy (12/21/20) History of suburethral sling procedure History of tubal ligation Hx of removal of cyst Family History Father HTN (hypertension) Glaucoma Mental health disorder Psoriasis Diabetes Substance use disorder Mother Osteoporosis Kidney disease Arthritis Glaucoma Substance use disorder Mental health disorder Maternal Grandfather Mental health disorder Paternal Grandfather Mental health disorder Social History Household Members: Significant Other Housing: Apartment Are you a primary health care facility administrator to a significant other at home: No Do you presently have visiting nurse or other home services: Yes (significant other) Alcohol intake: current Alcohol intake frequency: holidays/special occasions only Patient Tobacco Use Status: Current everyday Tobacco user Tobacco use type: Cigarette Cigarette Packs Per Day: 0.25 Cigarettes Per Day: 4 Years Smoked: 31 Packs Per Year: 8 Packs per year/per ci.20 e-Cigarette/Vaping Use: Never Used service: No Current occupational status: disabled Sexual orientation: Straight/Heterosexual Gender identity: Female Cognitive needs: No Hearing needs: No Vision needs: Yes Questionnaire Thrive Questionnaire Date Thrive assessed: 05/08/22 AUDIT C Alcohol Use Questionnaire (AUDIT-C) 1. How often do you have a drink containing alcohol?: Never Total Score: 0 ADALID-7 AMB Questionnaire ADALID-7 Date ADALID - 7 assessed: 05/08/22 Source: Developed by Drs. Sai Duffy, Kasey Sparks, Shahid Brenner and colleagues, with an educational markus from [employer] Review of Systems Const All systems reviewed & are unremarkable except as noted in HPI and below Reports as per HPI Physical exam (Primary Care) Vital Signs: Last Vital Signs Pulse 78 11/12/22 11:26 BP 110/70 11/12/22 11:26 Pulse Ox 99 11/12/22 11:26 Oxygen Delivery Method Room Air 11/12/22 11:26 BMI result Body Mass Index 39.3 BMI Assessment/Plan discussion: High BMI High, discussed plan: dietary and physical activity Tobacco/Smoking Status: Tobacco use Status Tobacco use date assessed 11/12/22 11/12/22 11:30 Patient Tobacco Use Status Current everyday Tobacco 11/12/22 11:09 Tobacco use type Cigarette 11/12/22 11:09 e-Cigarette/Vaping Use Never Used 11/12/22 11:09 Are you ready to quit: No Tobacco cessation counseling provided: Yes Thrive Assessment: Date of Thrive Assessment Date Thrive assessed 05/08/22 11/12/22 11:09 Const Orientation/consciousness: patient oriented x3 HENMT Mouth: Normal oral and palatal mucosa present, oropharynx normal and moist mucous membranes Neck Other: Nonpalpable thyroid gland Neck: Yes full ROM, Yes no lymphadenopathy and Yes supple Resp Auscultation: clear to auscultation bilaterally Cardio Other: S1-S2 present regular rate and with GI Inspection: Yes obesity Palpation (GI): Soft to palpation, nontender, no guarding and no masses Auscultation: normal bowel sounds General: Yes deferred (Currently being seen by OBGYN her Pap and pelvic exam) Neuro General: patient oriented x3, gait normal, tone normal, moves all extremities, Normal light touch and pain sensation, no focal motor deficits and CN's II-XI intact bilaterally Extrem General: Yes full ROM, Yes no joint enlargement, Yes no pedal edema, Yes no calf tenderness and Yes normal gait Psych Appearance: grossly normal Mental Status: mental status grossly normal Speech and movement: Normal speech and movement present Affect: normal affect Attitude: cooperative Office Meds cyanocobalamin (vitamin B-12) Performing Provider: Yi Montano MD Administered by: Tisha Mohan RN on 11/12/22 12:11 Dose Route Admin Location Lot Number Expiration Date [facility] Mfts 1,000 mcg IM left deltoid [id number] 12/14/24 [id number] ASHLEY KIMBALL Comments: Pt supplied Results Reviewed Results Reviewed: RUN: 11/12/22 1137 PAGE 1 [facility] [address] [place] [id number] Veterinary Surgeon: Pavel Rivas M.D. Specimen Inquiry Name: Keira Galdamez Age/Sex: 42/F : 1980 Unit#: [id number] Attend Dr: Dixie Brush Re10/31/22 Status: DEP REF Location: .LAB Disch: SPEC : [id number] CRICKET: 07/19/23-0730 STATUS: COMP REQ : [id number] RECD: 10/31/[address] [facility] [address]: Dixie Brush COMP: 10/31/22 ENTERED: 10/31/[address] [facility] [address]: Yi Montano MD ORDERED: CMP, IRON PROF, Ferritin, C Reactive Prot, Lipid Panel, Vitamin D 25- OH, Insulin Test Result Flag Reference Site Sodium 140 135-145 mmol/L Potassium 3.6 3.3-5.1 mmol/L CL 108 96-108 mmol/L CO2 25 22-29 mmol/L Gap 11 L 12-20 BUN 15 9-16 mg/dL Creat 0.67 0.5-1.4 mg/dL EGFR > 60 NOTE: For -Cymro individuals, multiply the result by 1.210. Chronic Kidney Disease: Estimated GFR < 60 mL/min/1.73m2 Severe Kidney Disease: Estimated GFR < 15 mL/min/1.73m2 Glucose, Random 98 60-115 mg/dL CA 8.8 8.4-10.2 mg/dL Iron 80 30-160 mcg/dL TIBC 270 228-428 mcg/dL Saturation 30 15-50 % UIBC 190 ug/dL Ferritin 62 10-250 ng/mL Total Bili 0.3 0.0-1.0 mg/dL AST (GOT) 13 5-31 U/L ALT (GPT) 13 0-31 U/L CRP 0.19 < or = 0.50 mg/dL Protein, Total 6.7 6.5-8.0 g/dL Alb 3.8 3.5-5.0 g/dL Triglyceride 54 mg/dL Desirable Triglyceride: less than 150 mg/dL Borderline High Triglyceride 150-199 mg/dL High Triglyceride: 200-499 mg/dL Very High Triglyceride: greater than or equal to 5OO mg/dL Chol 184 mg/dL Desirable Cholesterol: less than 200 mg/dL Borderline High Cholesterol: 200-239 mg/dL High Cholesterol: greater than 239 mg/dL LDL Calculated 128 mg/dl Desirable LDL: less than 100 mg/dL Near Optimal/Above Optimal LDL: 110-129 mg/dL Borderline High LDL: 130-159 mg/dL High LDL: 160-189 mg/dL Very High LDL: greater than or equal to 190 mg/dL HDL 46 mg/dL Desirable HDL: greater than 40 mg/dL Note: This HDL assay may give artificially low results in patients with liver disease. Alk Phos 80 39-117 U/L Vit D 25-OH Tot 27.0 >30 ng/mL Health Based Reference Values* < 20 ng/mL Deficient 20-30 ng/mL Insufficient > 30 ng/mL Sufficient *Elizabeth ROUSE. N Engl J Med. 2007;357:266-280 Care must be taken in interpreting Vitamin D results from different laboratories and methodologies. Published data demonstrated that results from patients undergoing hemodialysis may show a negative bias when tested with various automated 25-OH vitamin D assays when compared to LC-MS/MS. When testing samples from patients whose predominant form of Vitamin D is Vitamin D2, such as patients receiving Vitamin D2 supplementation, results that are subtherapeutic should be confirmed with another method such as LC-MS/MS. TSH 2.10 0.32-4.0 uIU/mL Insulin, total 5 2-29 uU/mL This test was performed using the [employer] viola miluminescent method. Values obtained from different assay methods cannot be used interchangeably. This insulin assay shows a possible cross-reactivity with antibodies generated against insulin (immunoreactive insulin and some patients treated with bovine or porcine insulin). Insulin levels may be measured lower in patients with insulin autoimmune syndrome or familial high pro-insulinemia. Assessment and Plan Assessment & Plan (1) Elevated parathyroid hormone: Code(s): R79.89 - Other specified abnormal findings of blood chemistry Plan: Endocrine consult obtain (2) History of sleeve gastrectomy: Onset Date: 12/21/20 Code(s): Z90.3 - Acquired absence of stomach [part of] (3) Vitamin B12 deficiency: Code(s): E53.8 - Deficiency of other specified B group vitamins Plan: Gets monthly B12 injections, gave 1 today (4) Hypothyroidism: Comment: not on thyroid med at present time Code(s): E03.9 - Hypothyroidism, unspecified Qualifiers: Hypothyroidism type: unspecified Qualified Code(s): E03.9 - Hypothyroidism, unspecified Plan: Thyroid levels within normal limits, currently not on any thyroid supplement (5) Vitamin D deficiency: Code(s): E55.9 - Vitamin D deficiency, unspecified Plan: Continue vitamin-D 3 supplement (6) Cigarette smoker motivated to quit: Code(s): F17.210 - Nicotine dependence, cigarettes, uncomplicated Plan: Prescription sent for nicotine patch 7 mg per patch , to apply as directed, remove at bedtime and rotate sites, do not smoke when using patch Orders: Orders AMB Vitamin B12 Injection Patient Supplied 11/12/22 E53.8 - Deficiency of other specified B group vitamins Referrals Endocrinology Referral R79.89 - Other specified abnormal findings of blood chemistry Medications: New nicotine Use as directed, removed patch at bedtime before sleeping, rotate sites of application, do not smoke cigarettes when using patch 1 patch transdermal Q24H 28 ea 0RF Refilled cholecalciferol (vitamin D3) 1,250 mcg PO QWEEK 3 months 13 caps 0RF Coding Level of Care Code Est Pt Level 4 (68974) Diagnoses Elevated parathyroid hormone R79.89 History of sleeve gastrectomy Z90.3 Vitamin B12 deficiency E53.8 Hypothyroidism E03.9 Hypothyroidism type: unspecified Vitamin D deficiency E55.9 Cigarette smoker motivated to quit [id number]
[2022-11-12 11:26] VITALS: BP 110/70; PULSE 78; O2SAT 99; BMI 39.3
== END 2022-11-12 12:43 | disposition home or self-care (01) ==
PROVIDERS: Visit Provider Internal Medicine
DX: E03.9 Hypothyroidism, unspecified (principal); Z90.3 Acquired absence of stomach [part of]; E55.9 Vitamin D deficiency, unspecified; F17.210 Nicotine dependence, cigarettes, uncomplicated; R79.89 Other specified abnormal findings of blood chemistry; E53.8 Deficiency of other specified B group vitamins
CPT/HCPCS: 96372; 99214; J3420

== ENCOUNTER 2022-11-14 06:06 | Day surgery (SDC) | payer OTHER, SELFPAY ==
[2022-11-14 06:29] VITALS: BP 104/69; PULSE 80; RESP 16; TEMP 36.1; O2SAT 99; BMI 39.0
[2022-11-14 06:36] VITALS: BMI 39.0
--- NOTE | 2022-11-14 06:52 | W.PM.OPN ---
Operative Note Operative Note Date of Service: 11/14/22 Narrative: Preop diagnosis: [GERD, weight gain status post sleeve gastrectomy, recurrent hiatal hernia on UGI] Postop diagnosis: [same, HH 38-40cm with fundic dilation/retained fundus, duodenitis, GERD/esophagitis, question EoE] Procedure: [EGD with Biopsy] Surgeon: Leroy Rosales MD Assist: [none] Anesthesia: [MAC] Estimated blood loss: [3cc] Specimen: [1) gastric antrum; 2) gastric body/sleeve; 3) mid-esophagus] Intraoperative findings: [Recurrent hiatal hernia from 38-40 cm with fundic remnant; duodenitis in the bulb; GERD, possible eosinophilic esophagitis d/t furrowing/trachealization in the esophagus; path pending] Indications: [The patient is a 42-year-old woman who had undergone a previous laparoscopic sleeve gastrectomy on 12/21/2020 with an anterior hiatal hernia repair.? Postoperatively, the patient lost weight down to 208 lb on 05/17/2021 as recorded in the bariatric records here at [facility], however the patient's operative surgeon, Kacy Ferro MD, saw her at [facility] on 10/17/2021 and noted that the patient was up 3 lb from a low of 205 lb. Since that time, the patient has had both weight gain and dysphagia, GERD; she is also resumed smoking cigarettes. An upper GI at [facility] 10/29/22 demonstrated normal esophageal motility a recurrent hiatal hernia, but given the dysphagia, an EGD and biopsies were indicated. The option of evaluation by a medical claims processor or a 2nd opinion was offered but declined. The importance of nicotine cessation and adherence to the diet for additional weight loss before considering a possible hernia repair was discussed at length. Since her anatomy an endoscopic findings could affect any operative decisions, I recommended an upper endoscopy with biopsies The inherent risks to the procedure including bleeding, aspiration that could cause pneumonia, perforation or injury that could require emergent surgery, delayed recognition of these complications, possible need for blood transfusion, and no change in her management were all discussed and apparently understood. The patient declined a roll edge machine operator and wanted to proceed. Procedure: [Procedure: The patient was placed in left lateral decubitus position. A bite block was positioned. Following successful administration of general anesthesia by the Department of Anesthesia, the Olympus 160 gastroscope was inserted per os into the esophagus under direct vision. The scope was then advanced into the sleeve where clear secretions were encountered and aspirated. The stomach was then inflated and the stomach yepez of the sleeve gastrectomy including anterior, posterior, lesser curve and antrum all exam. The scope was then advanced to the 2nd portion of the duodenum. Biopsy sites were assessed for hemostasis which was good. Biopsies: Of the gastric antrum, gastric sleeve body and mid esophagus were performed with cold forceps The scope was used to aspirate gas from the stomach and withdrawn from the patient. GE junction is noted to be at 40cm from the incisor and GERD/irregular Z-line with superficial erosions Hiatal hernia was not appreciated/noted from 38cm to 40cm with saccular dilation/fundic remnant. Esophageal morphology demonstrated for of and trachealization possible c/w EoE/biopsies pending The patient tolerated the procedure well and was sent to the recovery area in stable condition. At the patient's request, I contacted Bhaskar at [phone] to apprise them of the findings. The importance of continuing the current medication regime, nicotine cessation and weight loss was reviewed. His questions seemed to be satisfactorily answered.]
--- NOTE | 2022-11-14 07:02 | MHC.SHP ---
Pre-Procedural Eval Section A Date of Service: 11/14/22 The patient is an INPATIENT: No The History & Physical has been completed within 30 days and I have reviewed it.: Yes Section B Chief Complaint: Acquired absence of stomach [part of] Allergies: Allergies Allergy/AdvReac Type Severity Reaction Status Date / Time shellfish derived Allergy Intermediate Shortness Verified 11/12/22 11:35 of Breath/itchy throat Plan I have reviewed the history and physical and performed a pertinent physical examination on my patient. No changes have occurred unless specified. Time Spent With Patient Time: Total time managing care of this patient today ____ minutes.
--- NOTE | 2022-11-14 07:17 | P.CONAN_ITS ---
[facility] Active Problems Active Problems: All Active Problems Cigarette smoker motivated to quit (Acute) Elevated parathyroid hormone (Acute) Hiatal hernia (Acute) JOHN (obstructive sleep apnea) (Acute) Obesity (BMI 30-39.9) (Acute) History of sleeve gastrectomy (Acute 12/21/20) Smoking (Acute) Vitamin B12 deficiency (Acute) Obesity (BMI 30-39.9) (Acute) Allergy to shellfish (Acute) Pseudoseizures (Acute) JOHN on CPAP (Acute) Thyroid nodule (Acute) Vitamin D deficiency (Acute) Hypothyroidism (Acute) Mild intermittent asthma in adult without complication (Acute) Acquired hypothyroidism (Acute) Bipolar 1 disorder (Acute) Past Medical History Medical History Acquired hypothyroidism Bipolar 1 disorder BMI 50.0-59.9, adult Cigarette smoker motivated to quit Condyloma acuminata COVID-19 vaccine series completed Elevated parathyroid hormone Head injury Hypothyroidism Impaired glucose tolerance Mild intermittent asthma in adult without complication Morbid obesity Obesity (BMI 30-39.9) JOHN (obstructive sleep apnea) JOHN on CPAP Pre-diabetes Pseudoseizures Smoking Thyroid nodule Varicose veins of bilateral lower extremities with pain Vitamin D deficiency Family History Family History Father HTN (hypertension) Glaucoma Mental health disorder Psoriasis Diabetes Substance use disorder Mother Osteoporosis Kidney disease Arthritis Glaucoma Substance use disorder Mental health disorder Maternal Grandfather Mental health disorder Paternal Grandfather Mental health disorder Surgical History Surgical History History of section History of endometrial ablation History of partial hysterectomy History of repair of hiatal hernia History of sleeve gastrectomy (12/21/20) History of suburethral sling procedure History of tubal ligation Hx of removal of cyst History of Problems with Anesthesia: No Social History Social History Household Members: Significant Other Housing: Apartment Are you a primary home care and home health aides teacher to a significant other at home: No Do you presently have visiting nurse or other home services: Yes (significant other) Alcohol intake: current Alcohol intake frequency: holidays/special occasions only Patient Tobacco Use Status: Current everyday Tobacco user Tobacco use type: Cigarette Cigarette Packs Per Day: 0.25 Cigarettes Per Day: 2 Years Smoked: 30 e-Cigarette/Vaping Use: Never Used Use of substances other than those prescribed or required for medical reasons: No Are you DNR?: No Advance Directives: No Advance Directives Information Provided: Yes Patient : No (Tubal ligation, hysterectomy) service: No Current occupational status: disabled Sexual orientation: Straight/Heterosexual Gender identity: Female Cognitive needs: No Hearing needs: No Vision needs: Yes Meds Allergies Allergy/AdvReac Type Severity Reaction Status Date / Time shellfish derived Allergy Intermediate Shortness Verified 11/12/22 11:35 of Breath/itchy throat Active Medications: Current Medications Lactated Ringer's (Lr) 500 mls @ 50 mls/hr IV .Q10H JOE Stop: 11/14/22 16:14 Home Medications Medication Instructions Recorded Confirmed Last Taken Type pwfbcllxfq-wngvbmcobygpb-zvbvphxx 1 tab PO DAILY PRN Migraine 04/25/20 11/08/22 Unknown History 50 mg-325 mg-40 mg tablet Headache lamotrigine 100 mg tablet 100 mg PO BID 04/25/20 11/08/22 12/21/20 History zolpidem 10 mg tablet 10 mg PO BEDTIME PRN Insomnia 04/25/20 11/01/22 Unknown History hydrocortisone 2.5 % topical cream 1 appl topical BID PRN Rash 07/12/20 11/08/22 Unknown History fluticasone propionate 110 inhalation 12/21/20 11/08/22 Unknown History mcg/actuation HFA aerosol inhaler calcium citrate 1,000 mg tablet 1,000 mg PO DAILY 01/06/21 11/08/22 Unknown History nogbxipe-yryuqobv-bzsx 45 mg-folic 1 cap PO DAILY 01/06/21 11/08/22 Unknown History acid 800 mcg-vit K 120 mcg capsule (Bariatric Multivitamins) hydroxyzine pamoate 50 mg capsule 50 mg PO TID 04/04/21 11/08/22 Unknown History levetiracetam 750 mg tablet 750 mg PO BID 04/04/21 11/08/22 Unknown History Exam Exam Date and Time: November 14, [id number] Height,Weight and Vital Signs: Height 5 ft 3 in Weight 99.79 kg Last Vital Signs Temp 96.9 F 11/14/22 06:29 Pulse 80 11/14/22 06:29 Resp 16 11/14/22 06:29 BP 104/69 11/14/22 06:29 Pulse Ox 99 11/14/22 06:29 O2 Del Method Room Air 11/14/22 06:29 Airway Mallampati Class: III TM Dist: >3cm Neck ROM: Full Loose/Missing/Broken Teeth: No Heart: RRR Lungs: CTA Assessment and Plan Assessment Anesthesia Assessment: Anesthesia Plan Discussed and Chart Reviewed Final Anesthetic Review History of Problems with Anesthesia: No NPO: Yes ASA Class: III Final Preanesthetic Review: Meds/Allgs Chart Reviewed, Consent Obtained/Reviewed and Anes Risks/Benef Reviewed Patient Risk: Intermediate Procedure Risk: Intermediate Anesthetic Plan Anesthetic Plan: MAC: Disposition: Standard PACU
[2022-11-14 08:00] VITALS: BP 122/60; PULSE 81; RESP 16; TEMP 36.5; O2SAT 99
[2022-11-14 08:15] VITALS: BP 109/67; PULSE 76; RESP 16; TEMP 36.3; O2SAT 100
== END 2022-11-14 08:46 | disposition home or self-care (01) ==
PROVIDERS: PCP Internal Medicine; Visit Provider Surgery
PROC: 0DJ08ZZ Inspection of Upper Intestinal Tract, Via Natural or Artificial Opening Endoscopic (ICD-10-PCS; CPT 43235; principal; 2022-11-14 07:30)
DX: K21.9 Gastro-esophageal reflux disease without esophagitis (principal); K20.80 Other esophagitis without bleeding; R13.10 Dysphagia, unspecified; Z90.3 Acquired absence of stomach [part of]; Z98.84 Bariatric surgery status; R63.5 Abnormal weight gain; K29.80 Duodenitis without bleeding; K44.9 Diaphragmatic hernia without obstruction or gangrene; E66.01 Morbid (severe) obesity due to excess calories; Z68.39 Body mass index [BMI] 39.0-39.9, adult; E03.9 Hypothyroidism, unspecified; E55.9 Vitamin D deficiency, unspecified; F31.9 Bipolar disorder, unspecified; R73.02 Impaired glucose tolerance (oral); R73.03 Prediabetes; R56.9 Unspecified convulsions; G47.33 Obstructive sleep apnea (adult) (pediatric); J45.20 Mild intermittent asthma, uncomplicated; Z79.51 Long term (current) use of inhaled steroids; Z79.899 Other long term (current) drug therapy; Z99.89 Dependence on other enabling machines and devices; F17.210 Nicotine dependence, cigarettes, uncomplicated
CPT/HCPCS: 43239; 88305; 88342

== ENCOUNTER → 2022-11-20 10:35 | Outpatient (BNVA) | payer OTHER, SELFPAY | PROVIDERS: PCP Internal Medicine; Visit Provider Surgery | DX: E66.9 Obesity, unspecified (principal); G47.33 Obstructive sleep apnea (adult) (pediatric); K44.9 Diaphragmatic hernia without obstruction or gangrene; Z90.3 Acquired absence of stomach [part of]; Z68.39 Body mass index [BMI] 39.0-39.9, adult | CPT/HCPCS: 99212 ==

== ENCOUNTER 2022-11-20 14:08 | Outpatient (AMB) | payer OTHER, SELFPAY ==
--- NOTE | 2022-11-20 14:12 | MHC.OFFVISWM ---
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: No Quality Control Inspector: Quality Control Inspector offered & declined Accompanied by: Child Allergies shellfish derived Allergy (Intermediate, Verified 11/20/22 14:31) Shortness of Breath/itchy throat Medication List - Last Reconciled 11/20/22 by Leroy Rosales MD acetaminophen (Tylenol Extra Strength) 1,000 mg (2 x 500 mg) PO Q6H PRN albuterol sulfate 90 mcg/actuation (ProAir HFA) 1 inh inhalation QID 30 days blood sugar diagnostic (Blood Glucose Test strips) daily blood-glucose meter As directed bopjcpsvts-vorozsogtcpyr-nrhb 50-325-40 mg 1 tab PO DAILY PRN calcium citrate 1,000 mg PO DAILY [cane As directed] cholecalciferol (vitamin D3) 1,250 mcg PO QWEEK 3 months cyanocobalamin (vitamin B-12) 1,000 mcg IM Q4W diphenhydramine HCl (Benadryl) 25 mg PO TID PRN epinephrine (EpiPen 2-Olayinka) 0.3 mg (0.3 mL) IM Q15M PRN fluticasone propionate 110 mcg/actuation inhalation [grab bar for tub As directed] [hand held shower head As directed] hydrocortisone 2.5% 1 appl topical BID PRN hydroxyzine pamoate 50 mg PO TID inulin 2 grams PO DAILY ipratropium-albuterol 0.5 mg-3 mg(2.5 mg base)/3 mL 3 mL inhalation Q6H PRN lamotrigine 100 mg PO BID lancets (FreeStyle Lancets) Once daily levetiracetam 750 mg PO BID yuulapijvqgd-yle-zlmr-FA-vit K 45 mg iron- 800 mcg-120 mcg (Bariatric Multivitamins) 1 cap PO DAILY nicotine 1 patch transdermal Q24H pantoprazole 40 mg PO DAILY [portable shower hose As directed] [rasied toilet seat with handles As directed] [shower chair with back and handles As directed] [shower grab bar As directed] [shower mat As directed] vitamin A palmitate 10,000 units PO DAILY zolpidem 10 mg PO BEDTIME PRN HPI HPI Comments History of Present Illness Details The patient is a 42-year-old woman who entered the surgical weight loss program in 2020 with a BMI of 50.8/weight of 286.9 lb. She preoperatively lost weight and subsequently underwent a laparoscopic sleeve gastrectomy on 12/21/2020 with an anterior hiatal hernia repair. Postoperatively, the patient lost weight down to 208 lb on 05/17/2021 as recorded in the bariatric records here at [facility], however the patient's surgeon, Kacy Ferro MD, saw her at [facility] on 10/17/2021 and noted that the patient was up 3 lb from a low of 205 lb. The patient was offered an overweaver today but declined. The patient reports subjective dysphagia with certain foods. There is no problem with cervical engagement of swallowing per the patient. She has no issues regarding liquid consumption and is tolerating her protein shakes but notes that if she eats cauliflower rice, dried chicken or meets but she has issues with dysphagia. She also notes that there are issues within her family and friends encouraging her to eat more. Today, the patient reports that she has been eating a potato/starch since that is easier for her to swallow and also drinking protein shakes. The patient expressed concerns regarding her poor dentition and notes that eats Tucker lettuce and certain other vegetables, they are unchanged/on digested when she has a bowel movement, which suggests in adequate mastication. Her weight today is 221.6 lb/BMI 39.3 which is unchanged from her October appointment. She states she quit smoking cigarettes and all nicotine products 11/14/2022. The patient has had progressive weight gain and has noted symptoms of dysphagia, hoarseness and morning cough and vomiting after certain foods. The patient acknowledges that the symptoms started is she started gaining weight but notes that she only started recently smoking in the past year. At our prior appointment, the importance of nicotine cessation due to GERD, acid production was discussed and the patient is congratulated on her nicotine cessation. The patient underwent a barium swallow here at [facility] 10/29/2022 which noted normal esophageal motility and a small hiatal hernia. [facility] Medical History Acquired hypothyroidism Bipolar 1 disorder BMI 50.0-59.9, adult Cigarette smoker motivated to quit Condyloma acuminata COVID-19 vaccine series completed Elevated parathyroid hormone Head injury Hypothyroidism Impaired glucose tolerance Mild intermittent asthma in adult without complication Morbid obesity Obesity (BMI 30-39.9) JOHN (obstructive sleep apnea) JOHN on CPAP Pre-diabetes Pseudoseizures Smoking Thyroid nodule Varicose veins of bilateral lower extremities with pain Vitamin D deficiency Surgical History History of section History of endometrial ablation History of esophagogastroduodenoscopy (EGD) History of partial hysterectomy History of repair of hiatal hernia History of sleeve gastrectomy (12/21/20) History of suburethral sling procedure History of tubal ligation Hx of removal of cyst Family History Father HTN (hypertension) Glaucoma Mental health disorder Psoriasis Diabetes Substance use disorder Mother Osteoporosis Kidney disease Arthritis Glaucoma Substance use disorder Mental health disorder Maternal Grandfather Mental health disorder Paternal Grandfather Mental health disorder Social History Household Members: Significant Other Housing: Apartment Are you a primary medicare biller to a significant other at home: No Do you presently have visiting nurse or other home services: Yes (significant other) Alcohol intake: current Alcohol intake frequency: holidays/special occasions only Patient Tobacco Use Status: Current everyday Tobacco user Tobacco use type: Cigarette Cigarette Packs Per Day: 0.25 Cigarettes Per Day: 2 Years Smoked: 30 e-Cigarette/Vaping Use: Never Used service: No Current occupational status: disabled Sexual orientation: Straight/Heterosexual Gender identity: Female Cognitive needs: No Hearing needs: No Vision needs: Yes Review of Systems Const All systems reviewed & are unremarkable except as noted in HPI and below Physical Exam Vital Signs: Last Vital Signs Temp 97.5 F 11/20/22 14:13 Pulse 80 11/20/22 14:13 BP 117/68 11/20/22 14:13 Pulse Ox 97 11/20/22 14:13 Oxygen Delivery Method Room Air 11/20/22 14:13 BMI result Body Mass Index 39.3 On exam, the patient is anicteric She is in no acute respiratory distress The patient only has front incisors and no molars on the upper or lower mouth Results Reviewed Results Reviewed: Biopsies from her endoscopy 11/14/2022 showed no H pylori, no dysplasia; a small, 2 cm hiatal hernia with irregular Z-line and no Yin's esophagus was noted. No ulcerations or exudates were present. Biopsies of the antrum, sleeve/body of the stomach and esophagus were all normal. Assessment & Plan Assessment & Plan (1) History of sleeve gastrectomy: Onset Date: 12/21/20 Code(s): Z90.3 - Acquired absence of stomach [part of] (2) Obesity (BMI 30-39.9): Comment: Patient had previous history of gastric Sleeve. Has regained lot of weight and is. Now active in the weight management program Code(s): E66.9 - Obesity, unspecified (3) JOHN (obstructive sleep apnea): Comment: Past history of JOHN which improved after initial gastric sleeve surgery, Now after gaining the weight back she has become symptomatic. She does have history of disturb sleep with excessive snoring and daytime somnolence ESS=14 She would need a new sleep study and then to be started on CPAP therapy. Code(s): G47.33 - Obstructive sleep apnea (adult) (pediatric) (4) Hiatal hernia: Code(s): K44.9 - Diaphragmatic hernia without obstruction or gangrene (5) Obesity (BMI 30-39.9): Code(s): E66.9 - Obesity, unspecified Plan The patient needs guidance with her diet and I have set up an appointment with our dietitian, Crystal Monroy. I offered to see the patient in follow-up regarding her dysphagia, but she may benefit from evaluation by a dentist since she is complaining of swallowing vegetables whole that are not digesting. The importance of a high-protein diet and minimizing carbohydrates given her ongoing weight gain was discussed. The patient did note that she is only able to eat liquid/protein shakes and is eating a sort of tuber/potato. The importance of nicotine abstinence was discussed. The patient noted that she was hopeful that there would be a quick fix to her symptoms, but I believe she needs evaluation by a dentist, dietary Education and continue nicotine cessation in addition to abstaining from carbohydrates. The patient will contact me if she has other questions or problems. Coding Level of Care Code Est Pt Level 4 (68812) Diagnoses History of sleeve gastrectomy Z90.3 Obesity (BMI 30-39.9) E66.9 JOHN (obstructive sleep apnea) G47.33 Hiatal hernia K44.9
[2022-11-20 14:13] VITALS: BP 117/68; PULSE 80; TEMP 36.4; O2SAT 97; BMI 39.3
== END 2022-11-20 16:27 | disposition home or self-care (01) ==
PROVIDERS: PCP Internal Medicine; Visit Provider Surgery
DX: E66.9 Obesity, unspecified (principal); Z68.39 Body mass index [BMI] 39.0-39.9, adult; Z90.3 Acquired absence of stomach [part of]; Z98.84 Bariatric surgery status; K44.9 Diaphragmatic hernia without obstruction or gangrene
CPT/HCPCS: 99214

== ENCOUNTER 2022-12-06 05:20 | Outpatient (REF) | payer OTHER, SELFPAY | END 2022-12-06 05:21 | disposition home or self-care (01) | LOC: HO.HOSX 05:20 | PROVIDERS: Visit Provider Orthopaedic Surgery | DX: Z13.89 Encounter for screening for other disorder (principal) ==

== ENCOUNTER 2022-12-13 13:29 | Outpatient (AMB) | payer OTHER, SELFPAY ==
--- NOTE | 2022-12-13 13:39 | A.OFFVIS_ITS ---
Intake Vital Signs 12/13/22 13:40 Height 5 ft 3 in Weight 222 lb BMI 39.3 BP 102/68 Blood Pressure Location Lt brachial Position Sitting Pulse 69 Pulse Source Pulse Oximeter Pulse Oximetry (%) 98 Oxygen Delivery Method Room Air Intake Visit Reasons: Obstructive sleep apnea Intake Note: pt is here for pft follow up and sleep study follow up as well. 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 Required: No Allergies shellfish derived Allergy (Intermediate, Verified 12/13/22 13:46) Shortness of Breath/itchy throat Medication List - Last Reconciled 12/13/22 by Luis Reina MD acetaminophen (Tylenol Extra Strength) 1,000 mg (2 x 500 mg) PO Q6H PRN albuterol sulfate 90 mcg/actuation (ProAir HFA) 1 inh inhalation QID 30 days blood sugar diagnostic (Blood Glucose Test strips) daily blood-glucose meter As directed eilwrtgxeo-eoaqxkaoewxaa-uhpi 50-325-40 mg 1 tab PO DAILY PRN calcium citrate 1,000 mg PO DAILY [cane As directed] cholecalciferol (vitamin D3) 1,250 mcg PO QWEEK 3 months cyanocobalamin (vitamin B-12) 1,000 mcg IM Q4W diphenhydramine HCl (Benadryl) 25 mg PO TID PRN epinephrine (EpiPen 2-Olayinka) 0.3 mg (0.3 mL) IM Q15M PRN fluticasone propionate 110 mcg/actuation inhalation [grab bar for tub As directed] [hand held shower head As directed] hydrocortisone 2.5% 1 appl topical BID PRN hydroxyzine pamoate 50 mg PO TID inulin 2 grams PO DAILY ipratropium-albuterol 0.5 mg-3 mg(2.5 mg base)/3 mL 3 mL inhalation Q6H PRN lamotrigine 100 mg PO BID lancets (FreeStyle Lancets) Once daily levetiracetam 750 mg PO BID jcbveyivjdcz-jzp-nfwv-FA-vit K 45 mg iron- 800 mcg-120 mcg (Bariatric Multivitamins) 1 cap PO DAILY nicotine 1 patch transdermal Q24H pantoprazole 40 mg PO DAILY [portable shower hose As directed] [rasied toilet seat with handles As directed] [shower chair with back and handles As directed] [shower grab bar As directed] [shower mat As directed] vitamin A palmitate 10,000 units PO DAILY zolpidem 10 mg PO BEDTIME PRN Do you need a note to return to daycare/school/sports/work: No HPI Obstructive sleep apnea HPI Details 42 YEARS OLD FEMALE, PREVIOUS HISTORY OF SLEEP APNEA, WHICH IMPROVED AFTER WEIGHT LOSS AFTER HER PREVIOUS BARIATRIC SURGERY IN 2020. SHE HAD STOPPED USING THE CPAP. NOW HER MAIN ISSUE IS LOT OF SNORING AT NIGHT, SHE DENIES. ANY DAYTIME SLEEPINESS ALSO HAS HISTORY OF BRONCHIAL ASTHMA USING FLOVENT TWICE A DAY, AND BREATHING IS REMAINING VERY STABLE. [facility] Medical History Acquired hypothyroidism Bipolar 1 disorder BMI 50.0-59.9, adult Cigarette smoker motivated to quit Condyloma acuminata COVID-19 vaccine series completed Elevated parathyroid hormone Head injury Hypothyroidism Impaired glucose tolerance Mild intermittent asthma in adult without complication Morbid obesity Obesity (BMI 30-39.9) JOHN (obstructive sleep apnea) JOHN on CPAP Pre-diabetes Pseudoseizures Smoking Thyroid nodule Varicose veins of bilateral lower extremities with pain Vitamin D deficiency Surgical History History of section History of endometrial ablation History of esophagogastroduodenoscopy (EGD) History of partial hysterectomy History of repair of hiatal hernia History of sleeve gastrectomy (12/21/20) History of suburethral sling procedure History of tubal ligation Hx of removal of cyst Family History Father HTN (hypertension) Glaucoma Mental health disorder Psoriasis Diabetes Substance use disorder Mother Osteoporosis Kidney disease Arthritis Glaucoma Substance use disorder Mental health disorder Maternal Grandfather Mental health disorder Paternal Grandfather Mental health disorder Social History Household Members: Significant Other Housing: Apartment Are you a primary care program resident to a significant other at home: No Do you presently have visiting nurse or other home services: Yes (significant other) Alcohol intake: current Alcohol intake frequency: holidays/special occasions o nly Patient Tobacco Use Status: Current everyday Tobacco user Tobacco use type: Cigarette Cigarette Packs Per Day: 0.25 Cigarettes Per Day: 2 Years Smoked: 30 e-Cigarette/Vaping Use: Never Used service: No Current occupational status: disabled Sexual orientation: Straight/Heterosexual Gender identity: Female Cognitive needs: No Hearing needs: No Vision needs: Yes Review of Systems Const All systems reviewed & are unremarkable except as noted in HPI and below Eyes Reports no additional complaints ENT Reports no additional complaints Card Denies chest pain, Denies irregular heart rhythm and Denies leg edema Resp Reports as per HPI GI Reports heartburn (Frequent feeling of heartburn being controlled with med) Reports no additional complaints Musc Reports no additional complaints Skin/Breast Reports system reviewed and no additional complaints, except as documented Neuro Reports other (History of seizure disorder controlled with med) Endo Reports other (Hypothyroidism) Aller/Immun Reports no additional complaints Physical Exam Vital Signs: Last Vital Signs Pulse 69 12/13/22 13:40 BP 102/68 12/13/22 13:40 Pulse Ox 98 12/13/22 13:40 Oxygen Delivery Method Room Air 12/13/22 13:40 BMI result Body Mass Index 39.3 Const Other: SHE REMAINS, GROSSLY OBESE BMI 39.3 General: comfortable, no acute distress, alert and awake Orientation/consciousness: patient oriented x3 HEENT Head: Yes normal to inspection General nose exam: No nasal polyps present and No nasal discharge present Face and sinus: Yes sinuses nontender Mouth: oropharynx abnormals (Oropharynx is narrow and crowded, Mallampati class 3) Throat: Yes posterior oropharynx normal Eyes General: appearance normal, both eyes and all related structures Neck Neck: Yes normal visual inspection, Yes no lymphadenopathy, Yes trachea midline and Yes no JVD Thyroid: Thyroid normal Chest Chest palpation & inspection: normal inspection of the chest, normal palpation of entire chest wall and no tenderness Resp Effort & Inspection: normal respiratory effort Auscultation: clear to auscultation bilaterally, no crackles, no rhonchi and no wheezes Cardio Palpation: normal PMI Rate: regular rate Rhythm: regular rhythm Heart sounds: no gallops and no murmurs GI Palpation (GI): Soft to palpation, nontender, No hepatosplenomegaly present and no masses Auscultation: normal bowel sounds Back/Spine/Pelvis Thoracic/Lumbar Spine: thoracic and lumbar spine normal to inspection Skin General skin exam: no rashes or lesions noted Neuro General: patient oriented x3 and no focal motor deficits Cranial nerves: Yes CN's II-XII intact bilaterally Extrem General: Yes normal to inspection, Yes no clubbing, cyanosis or edema and Yes no calf tenderness Psych Appearance: grossly normal and well kempt Speech and movement: Normal speech and movement present Results Reviewed Results Reviewed: PULMONARY FUNCTION TEST NORMAL EXCEPT FOR VERY MINIMAL MVV, THIS IS DUE TO TECHNICAL REASON BECAUSE SHE COULD NOT KEEP THE NOSE CLIP ON AND COULD NOT DO ENOUGH BREATHING. HOME-BASED SLEEP STUDY SHOWS A MILD DEGREE OF SLEEP APNEA, WITH TOTAL SLEEP TIME AHI 7.1, SUPINE POSITION AHI 5.3 SHE SLEPT IN RIGHT LATERAL POSITION FOR 43 MINUTES AND THERE THE AHI WAS 24 MOST LIKELY RELATED TO A DEEPER STAGE OF SLEEP. SNORING WAS 50% OF THE SLEEP TIME. AND SHE DID HAVE THE LOW O2 SAT LOWEST AT 76 AND BELOW 88% FOR 14 MINUTES, I THINK MOST LIKELY DUE TO TECHNICAL ISSUES Assessment & Plan Assessment & Plan (1) Obesity (BMI 30-39.9): Comment: Patient had previous history of gastric Sleeve. Has regained lot of weight . ADVISE THAT SHE SHOULD REMAIN ACTIVE IN WEIGHT MANAGEMENT PROGRAM, AND MAY NEED TO HAVE .GASTRIC SLEEVE REVISED Code(s): E66.9 - Obesity, unspecified (2) JOHN (obstructive sleep apnea): Comment: Past history of JOHN which improved after initial gastric sleeve surgery, THE CURRENT SLEEP STUDY SHOWS MILD OBSTRUCTIVE SLEEP APNEA, BUT WITH EXCESSIVE SNORING. OPTIONS FOR THE TREATMENT CONSIDERED. SHE WOULD LIKE TO PURSUE WEIGHT REDUCTION, AND DOES NOT WANT TO GO BACK TO CPAP. I TOLD HER THAT SHE SHOULD LOSE ABOUT 10% OF THE CURRENT WEIGHT WHICH WOULD AMOUNT TO ABOUT 20 LB OF WEIGHT. Code(s): G47.33 - Obstructive sleep apnea (adult) (pediatric) (3) Smoking: Comment: Still smoking just 2 cigarettes a day, unable to quit completely. Code(s): F17.200 - Nicotine dependence, unspecified, uncomplicated (4) Mild intermittent asthma in adult without complication: Comment: Chronic bronchial asthma, clinically seems to be controlled at this time, her continued smoking may be aggravating her symptoms. PULMONARY FUNCTION TEST IS BASICALLY NORMAL, DOES NOT SHOW ANY SIGNIFICANT OBSTRUCTIVE AIRWAY DISORDER. TX: Continue Flovent-110 2 puffs, b.i.d. use ProAir 2 puffs Q. 4-6 hours only p.r.n. Code(s): J45.20 - Mild intermittent asthma, uncomplicated Coding Level of Care Code Est Pt Level 3 (98090) Diagnoses Obesity (BMI 30-39.9) E66.9 JOHN (obstructive sleep apnea) G47.33 Smoking F17.200 Mild intermittent asthma in adult without complication J45.20
[2022-12-13 13:40] VITALS: BP 102/68; PULSE 69; O2SAT 98; BMI 39.3
== END 2022-12-13 13:59 | disposition home or self-care (01) ==
PROVIDERS: PCP Internal Medicine; Visit Provider Internal Medicine
DX: E66.9 Obesity, unspecified (principal); G47.33 Obstructive sleep apnea (adult) (pediatric); F17.200 Nicotine dependence, unspecified, uncomplicated; J45.20 Mild intermittent asthma, uncomplicated
CPT/HCPCS: 99213

== ENCOUNTER → 2022-12-13 13:29 | Outpatient (BNVA) | payer OTHER, SELFPAY | PROVIDERS: PCP Internal Medicine; Visit Provider Internal Medicine | DX: J45.20 Mild intermittent asthma, uncomplicated (principal); G47.33 Obstructive sleep apnea (adult) (pediatric); E66.9 Obesity, unspecified; Z68.39 Body mass index [BMI] 39.0-39.9, adult; F17.210 Nicotine dependence, cigarettes, uncomplicated | CPT/HCPCS: 99212 ==

== ENCOUNTER → 2022-12-19 09:56 | Outpatient (BNVA) | payer OTHER, SELFPAY | PROVIDERS: PCP Internal Medicine; Visit Provider Dietitian, Registered | DX: E66.9 Obesity, unspecified (principal); Z68.39 Body mass index [BMI] 39.0-39.9, adult; Z98.84 Bariatric surgery status; Z71.3 Dietary counseling and surveillance | CPT/HCPCS: 97803 ==

== ENCOUNTER 2022-12-20 09:26 | Outpatient (AMB) | payer OTHER, SELFPAY ==
--- NOTE | 2022-12-20 09:43 | AM.OFFVISNUR ---
Intake Intake Visit Reasons: B12 Intake Note: Pt arrived for monthly B-12 injection Allergies shellfish derived Allergy (Intermediate, Verified 12/13/22 13:46) Shortness of Breath/itchy throat Office Meds cyanocobalamin (vitamin B-12) 1,000 mcg/mL injection solution Performing Provider: Yi Montano MD Performing Location: [facility] Administered by: Tisha Mohan RN on 12/20/22 09:44 Dose Route Admin Location Dispensed Lot Number Expiration Date [facility] Refrigeration Lead 1,000 mcg IM Left deltoid 1 mL [id number] 05/16/24 24210-001-86 Repairy Comments: Pt supplied Coding Assessment & Plan Assessment & Plan Orders: Orders AMB Vitamin B12 Injection Patient Supplied Today E53.8 - Deficiency of other specified B group vitamins
== END 2022-12-20 16:18 | disposition home or self-care (01) ==
LOC: HO.HMGC 09:26
PROVIDERS: PCP Internal Medicine; Visit Provider Internal Medicine
DX: E53.8 Deficiency of other specified B group vitamins (principal)
CPT/HCPCS: 96372; J3420

== ENCOUNTER 2023-02-18 13:51 | Outpatient (REF) | payer OTHER, SELFPAY ==
[2023-02-18 15:54] LABS: Vitamin D 25-OH Total 32.1 ng/mL (>30)
== END 2023-02-18 13:52 | disposition home or self-care (01) ==
LOC: HO.LAB 13:51
PROVIDERS: PCP Internal Medicine; Visit Provider Internal Medicine
DX: E55.9 Vitamin D deficiency, unspecified (principal)
CPT/HCPCS: 36415; 82306

== ENCOUNTER → 2023-02-20 13:30 | Outpatient (BNV) | payer OTHER, SELFPAY | PROVIDERS: Visit Provider Radiology Diagnostic Radiology | DX: R92.322 Mammographic fibroglandular density, left breast (principal) | CPT/HCPCS: 77061; 77065 ==

== ENCOUNTER 2023-02-20 15:03 | Outpatient (REF) | payer OTHER, SELFPAY ==
--- NOTE | ~2023-02-20 | MM_ITS ---
EXAMINATION: MM DIAGNOSTIC DIGITAL BREAST TOMOSYNTHESIS, LEFT CLINICAL INFORMATION: Short interval six-month follow-up mammography advised for left breast asymmetry as noted on exam from August 2022. COMPARISON: Mammography: This study is compared with multiple prior mammograms dating back to 2019. TECHNIQUE: Digital breast tomosynthesis is performed in both the craniocaudal and mediolateral oblique views along with computer-aided detection (CAD). Synthesized 2D images are generated from the tomosynthesis. FINDINGS: There are scattered areas of fibroglandular density (ACR BI-RADS breast composition Category b). There are no significant masses, abnormal calcifications, or other abnormalities. The previously noted laterally located asymmetry as a sales representative jewelry of normal intramammary lymph nodes. There are no mammographic signs of malignancy. MM/MM tomosynthesis diagnostic LT IMPRESSION: No mammographic evidence of malignancy. ASSESSMENT: BI-RADS BI-RADS 1 - Negative RECOMMENDATION: 1 year F/U The next routine annual screening mammogram is due in August 2023. Results were provided to the patient at time of visit by the technologist. This patient's information was entered into a reminder system with a target due date for their next mammogram.
== END 2023-02-20 15:04 | disposition home or self-care (01) ==
LOC: HO.MAMMO 15:03
PROVIDERS: Visit Provider Internal Medicine
DX: R92.2 Inconclusive mammogram (principal)
CPT/HCPCS: 77061; 77065

== ENCOUNTER 2023-04-22 15:01 | Outpatient (REF) | payer OTHER, SELFPAY ==
--- NOTE | ~2023-04-22 | US_ITS ---
EXAMINATION: US THYROID CLINICAL INFORMATION: Nontoxic single thyroid nodule. Goiter. COMPARISON: Ultrasound soft tissue head/neck thyroid dated 04/19/2020 and 01/14/2019. TECHNIQUE: Linear transducer grayscale and color Doppler examination with attention to the region of the thyroid. FINDINGS: SIZE: Measurements of the thyroid lobes and nodules are given in sagittal, anteroposterior and transverse dimensions respectively. Right Thyroid Lobe: 5.3 x 1.8 x 1.9 cm, volume 9.3 mL. Previously 5.2 x 1.5 x 1.6 cm, volume 6.4 mL. Parenchyma: The gland echotexture is homogeneous. Thyroid vascularity is normal. Left Thyroid Lobe: 4.8 x 1.5 x 1.6 cm, volume 6.2 mL. Previously 5.1 x 1.7 x 1.7 cm, volume 7.8 mL. Parenchyma: The gland echotexture is homogeneous. Thyroid vascularity is normal. Isthmus: 0.3 cm in maximum AP dimension. Previously 0.2 cm. Estimated total number of nodules greater than or equal to 1 cm: 0. Copy Manager nodules are described as follows: 1. Location: Right inferior. Size: 0.7 x 0.5 x 0.5 cm, volume 0.1 mL. Previously: 0.8 x 0.7 x 0.6 cm, volume 0.2 mL. Nodule characteristics: Composition: Solid (2). Echogenicity: Isoechoic (1). Shape: Not taller than wide (0). Margins: Smooth (0). Echogenic Foci: None (0). ACR TI-RADS total points: 3 ACR TI-RADS category: 3 Significant change in size (>/= 20% in 2 dimensions and minimal increase of 2 mm or 50% or greater increase in volume): No Change in features: No Change in ACR TI-RADS risk category: No NODES: Within mid right cervical level , a 4.0 x 1.1 x 1.7 cm reniform. Note is seen. This shows good corticomedullary differentiation, vascular megan and no focal cortical thickening. US/US thyroid IMPRESSION: 1. A small, nonspecific right thyroid lobe nodule is seen, as detailed. No specific imaging follow-up is recommended. 2. There is a borderline goiter. 3. An nonspecific, enlarged right cervical lymph node is newly seen with normal architecture. This should be managed on a clinical basis. If of continued clinical concern, consider follow-up ultrasound imaging in 3-6 months to ensure stability/regression. ACR TI-RADS RECOMMENDATION REFERENCE: Ultrasound-guided fine-needle aspiration, follow up ultrasound, no further followup. * TR1 (0 point) and TR2 (2 points): No FNA or followup * TR3 (3 points): FNA if more than or equal to 2.5 cm in maximum dimension, follow up ultrasound in 1, 3 and 5 years if 1.5 to 2.4 cm in maximum dimension. * TR4 (4-6 points): FNA if more than or equal to 1.5 cm in maximum dimension, follow up ultrasound in 1, 2, 3 and 5 years if 1 to 1.4 cm in maximum dimension. * TR5 (more than or equal to 7 points): FNA if more than or equal to 1 cm in maximum dimension, follow up ultrasound every year for 5 years if 0.5 to 0.9 cm in maximum dimension. * TR3, TR4 or TR5 nodules that are below the size threshold for follow up receive no followup.
== END 2023-04-22 15:02 | disposition home or self-care (01) ==
LOC: HO.US 15:01
PROVIDERS: PCP Internal Medicine; Visit Provider Internal Medicine Endocrinology, Diabetes & Metabolism
DX: E04.1 Nontoxic single thyroid nodule (principal)
CPT/HCPCS: 76536

== ENCOUNTER 2023-07-17 08:37 | Outpatient (AMB) | payer OTHER, SELFPAY ==
--- NOTE | 2023-07-17 08:39 | MHC.OFFVIS ---
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 Partner at the visit. She tries to eat healthy s/p Gastric sleeve, no regular exercise. Currently is sexually active. She admits to external irritation, used a cream to remove hair yesterday and left it onto long. Discomfort w/intimacy since surgery. Denies family history of ovarian or colon cancer. FH breast cancer. Last pap smear 2020, negative. Hysterectomy 2018 for HMB. Mammogram: 2022. [facility] Medical History Cigarette smoker motivated to quit Elevated parathyroid hormone JOHN (obstructive sleep apnea) Obesity (BMI 30-39.9) Smoking Pre-diabetes COVID-19 vaccine series completed Pseudoseizures Impaired glucose tolerance Head injury BMI 50.0-59.9, adult JOHN on CPAP Thyroid nodule Vitamin D deficiency Hypothyroidism Condyloma acuminata Varicose veins of bilateral lower extremities with pain Morbid obesity Mild intermittent asthma in adult without complication Acquired hypothyroidism Bipolar 1 disorder Surgical History History of esophagogastroduodenoscopy (EGD) History of repair of hiatal hernia History of sleeve gastrectomy (12/21/20) History of endometrial ablation History of suburethral sling procedure Hx of removal of cyst History of partial hysterectomy History of section History of tubal ligation Family History (Updated 07/17/23 @ 08:47 by DOMINIC Palacios) Father HTN (hypertension) Glaucoma Mental health disorder Psoriasis Diabetes Substance use disorder Mother Osteoporosis Kidney disease Arthritis Glaucoma Substance use disorder Mental health disorder Maternal Grandfather Mental health disorder Paternal Grandfather Mental health disorder Paternal Grandmother History of breast cancer Social History (Updated 07/17/23 @ 08:47 by DOMINIC Palacios) Household Members: Significant Other Housing: Apartment Are you a primary pet caregiver to a significant other at home: No Do you presently have visiting nurse or other home services: Yes (significant other) Alcohol intake: current Alcohol intake frequency: holidays/special occasions only Patient Tobacco Use Status: Current everyday Tobacco user Tobacco use type: Cigarette Cigarette Packs Per Day: 0.5 Cigarettes Per Day: 10 Years Smoked: 30 e-Cigarette/Vaping Use: Never Used service: No Current occupational status: disabled Sexual orientation: Straight/Heterosexual Gender identity: Female Cognitive needs: No Hearing needs: No Vision needs: Yes Female Reproductive History Menstrual Menopause type: surgical Total pregnancies: 12 Full term: 3 Number of Living Children: 3 Ab spontaneous: 9 Date of last pap smear: 04/04/19 (neg pap and hpv) Date of Mammogram: 08/13/22 (Birad 0) Review of Systems Const All systems reviewed & are unremarkable except as noted in HPI and below Reports as per HPI Eyes Reports no additional complaints ENT Reports no additional complaints Card Reports no additional complaints Resp Reports no additional complaints GI Reports as per HPI and Reports no additional complaints Reports as per HPI Musc Reports no additional complaints Skin/Breast Reports as per HPI Neuro Reports no additional complaints Psych Reports no additional complaints Endo Reports no additional complaints Inder/Lymph Reports no additional complaints Aller/Immun Reports no additional complaints Physical Exam Vital Signs: Last Vital Signs BP 122/80 07/17/23 08:40 BMI result Body Mass Index 40.6 Const General: cooperative, healthy appearing, no acute distress, well developed and alert Orientation/consciousness: patient oriented x3 HEENT Head: Yes normal to inspection Eyes General: appearance normal, both eyes and all related structures Neck Neck: Yes normal visual inspection Thyroid: Thyroid normal Chest Chest palpation & inspection: normal inspection of the chest and other (no puckering, dimpling, peau de orange, retraction, discharge, masses) Breast/axilla inspection: normal inspection of the breasts Breast/axilla palpation: normal palpation of the breasts Resp Effort & Inspection: normal respiratory effort GI Inspection: Yes normal to inspection, Yes obesity and Yes scar (Reports tenderness over the scar region) Palpation (GI): Soft to palpation Rectal Exam - Female: deferred General: Yes bladder normal to palpation External Female Exam: normal external appearance and normal appearance of the urethra Speculum Exam - Vagina: normal appearance of the vagina, normal palpation and normal vaginal discharge Speculum Exam - Cervix: Cervix absent (Vaginal cuff no lesions or nodules, nontender) Bimanual exam- vagina & uterus: normal bimanual exam, normal palpation, bladder normal to palpation and uterus absent Bimanual Exam- Adnexa, other: no masses Skin General skin exam: no rashes or lesions noted Rashes: no rashes Neuro General: patient oriented x3 Cognition (Neuro): normal cognition Extrem General: Yes normal to inspection Psych Attitude: cooperative Thought process: Normal thought process present Assessment & Plan Assessment & Plan (1) Encounter for well woman exam with routine gynecological exam: Code(s): Z01.419 - Encounter for gynecological examination (general) (routine) without abnormal findings Plan Discussed: Current recommendations for pap smears per ASCCP guidelines. Breast awareness and periodic breast exams. Maintain a healthy lifestyle including a well balanced diet and routine exercise. Discussed vaginal dryness encouraged her to try some Replens lubrication if needed. Discussed her discomfort with intimacy she admits that her partner has a Shahid penis and has seen his urologist. She could consider Shante Kevin MD website refer to her. And agreed for her to have her partner follow up with Urology. Mammogram yearly. Patient verbalizes understanding and agrees to the plan of care. She was given opportunity to ask questions and all questions were answered to the best of my ability. 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 This note is constructed using voice recognition software. While every effort has been made to ensure accuracy, securities adviser errors may have been included. Coding Level of Care Code Est Pt Prev Care 40-64y(84981) Diagnoses Encounter for well woman exam with routine gynecological exam Z01.419
[2023-07-17 08:40] VITALS: BP 122/80; BMI 40.6
== END 2023-07-17 09:38 | disposition home or self-care (01) ==
PROVIDERS: PCP Internal Medicine; Visit Provider Advanced Practice Midwife
DX: Z01.419 Encounter for gynecological examination (general) (routine) without abnormal findings (principal)
CPT/HCPCS: 99396

== ENCOUNTER → 2023-07-17 08:37 | Outpatient (BNVA) | payer OTHER, SELFPAY | PROVIDERS: PCP Internal Medicine; Visit Provider Advanced Practice Midwife | DX: Z01.419 Encounter for gynecological examination (general) (routine) without abnormal findings (principal) | CPT/HCPCS: 99396 ==

== ENCOUNTER 2023-07-26 12:57 | Outpatient (AMB) | payer OTHER, SELFPAY ==
[2023-07-26 13:22] VITALS: BP 130/90; PULSE 86; O2SAT 96; BMI 40.6
--- NOTE | 2023-07-26 13:22 | MHC.OFFWIV ---
Intake Vital Signs 07/26/23 13:22 Height 5 ft 3 in Weight 229 lb BMI 40.6 BP 130/90 H Blood Pressure Location Lt brachial Position Sitting Pulse 86 Pulse Source Pulse Oximeter Pulse Oximetry (%) 96 Oxygen Delivery Method Room Air Intake Visit Reasons: lower back pain during urination (lobby) Intake Note: pt is here today for lower back pain started saturday Patient Tobacco Use Status: Current everyday Tobacco user Allergies shellfish derived Allergy (Intermediate, Verified 07/26/23 13:30) Shortness of Breath/itchy throat Do you need a note to return to daycare/school/sports/work: No HPI HPI Comments History of Present Illness Details This is a 42-year-old female who presented to the walk-in clinic complaining of hematuria and bilateral flank/lower abdominal pain. She states she noticed some hematuria several days ago with associated bilateral flank/lower abdominal pain. She states this flank/lower abdominal pain only occurs when she is urinating. She states the hematuria has slowly improved but she continues to have the flank/abdominal pain with urination. She denies any increased urinary frequency/urgency. She denies any decreased urine volume/difficulty urinating. She denies any nausea/vomiting/diarrhea. She denies any fevers or chills. [facility] Medical History Cigarette smoker motivated to quit Elevated parathyroid hormone JOHN (obstructive sleep apnea) Obesity (BMI 30-39.9) Smoking Pre-diabetes COVID-19 vaccine series completed Pseudoseizures Impaired glucose tolerance Head injury BMI 50.0-59.9, adult JOHN on CPAP Thyroid nodule Vitamin D deficiency Hypothyroidism Condyloma acuminata Varicose veins of bilateral lower extremities with pain Morbid obesity Mild intermittent asthma in adult without complication Acquired hypothyroidism Bipolar 1 disorder Surgical History History of esophagogastroduodenoscopy (EGD) History of repair of hiatal hernia History of sleeve gastrectomy (12/21/20) History of endometrial ablation History of suburethral sling procedure Hx of removal of cyst History of partial hysterectomy History of section History of tubal ligation Family History (Updated 07/17/23 @ 08:47 by DOMINIC Palacios) Father HTN (hypertension) Glaucoma Mental health disorder Psoriasis Diabetes Substance use disorder Mother Osteoporosis Kidney disease Arthritis Glaucoma Substance use disorder Mental health disorder Maternal Grandfather Mental health disorder Paternal Grandfather Mental health disorder Paternal Grandmother History of breast cancer Social History (Updated 07/17/23 @ 08:47 by Ting Wang [facility]) Household Members: Significant Other Housing: Apartment Are you a primary veterinarian laboratory animal care to a significant other at home: No Do you presently have visiting nurse or other home services: Yes (significant other) Alcohol intake: current Alcohol intake frequency: holidays/special occasions only Patient Tobacco Use Status: Current everyday Tobacco user Tobacco use type: Cigarette Cigarette Packs Per Day: 0.5 Cigarettes Per Day: 10 Years Smoked: 30 e-Cigarette/Vaping Use: Never Used service: No Current occupational status: disabled Sexual orientation: Straight/Heterosexual Gender identity: Female Cognitive needs: No Hearing needs: No Vision needs: Yes Review of Systems Const All systems reviewed & are unremarkable except as noted in HPI and below Reports no additional complaints Eyes Reports no additional complaints ENT Reports no additional complaints Card Reports no additional complaints Resp Reports no additional complaints GI Reports no additional complaints Reports no additional complaints Musc Reports no additional complaints Skin/Breast Reports system reviewed and no additional complaints, except as documented Neuro Reports no additional complaints Psych Reports no additional complaints Endo Reports no additional complaints Inder/Lymph Reports no additional complaints Aller/Immun Reports no additional complaints Physical Exam Vital Signs: BMI result Body Mass Index 40.6 Const Other: Vital signs reviewed. Constitutional: Non-toxic appearing. No acute distress. Well-developed and well-nourished. HEENT: Normocephalic and atraumatic. Skin: Warm and dry. No rashes or lesions noted. Neck: Full and painless range of motion. No cervical lymphadenopathy. Cardio: Regular rate and rhythm. No lower extremity edema. No JVD. Pulmonary: No respiratory distress. No accessory muscle usage. Gastrointestinal: Soft, nontender, and nondistended in all 4 quadrants. Normoactive bowel sounds in all 4 quadrants. Musculoskeletal: Normal range of motion in joints throughout the body. No deformity or other signs of injury. Neuro: Alert and oriented x4. Cranial nerves 2-12 grossly intact. No focal deficits appreciated. Psych: Normal mood and affect. Results AMB Urinalysis, Automated UA Leukoctes 0 Mercedes/uL Last Edit by Bryce Durbin CMA on 07/26/23 13:25 UA Nitrite Negative Last Edit by Bryce Durbin CMA on 07/26/23 13:25 UA Urobilinogen 0.2 mg/dL Last Edit by Bryce Durbin CMA on 07/26/23 13:25 UA Protein 0 mg/dL Last Edit by Bryce Durbin CMA on 07/26/23 13:25 UA pH 6.0 Last Edit by Bryce Durbin CMA on 07/26/23 13:25 UA Blood 10 Matthew/uL Last Edit by Bryce Durbin CMA on 07/26/23 13:25 UA Specific [place] 1.015 Last Edit by Bryce Durbin CMA on 07/26/23 13:25 UA Ketone Negative Last Edit by Bryce Durbin CMA on 07/26/23 13:25 UA Bilirubin 0 mg/dL Last Edit by Bryce Durbin CMA on 07/26/23 13:25 UA Glucose 0 mg/dL Last Edit by Bryce Durbin CMA on 07/26/23 13:25 Results Reviewed Results Reviewed: Laboratory Last Values Urine pH (Auto) 6.0 07/26/23 13:24 Specific [place] (Auto) 1.015 07/26/23 13:24 Urine Protein (Auto) 0 mg/dL 07/26/23 13:24 Glucose (UA)(Auto) 0 mg/dL 07/26/23 13:24 Urine Ketones (Auto) Negative 07/26/23 13:24 Urine Blood (Auto) 10 Matthew/uL 07/26/23 13:24 Urine Nitrite (Auto) Negative 07/26/23 13:24 Urine Bilirubin (Auto) 0 mg/dL 07/26/23 13:24 Urine Urobilinogen (Auto) 0.2 mg/dL 07/26/23 13:24 Leukocyte Esterase (Auto) 0 Mercedes/uL 07/26/23 13:24 Assessment & Plan Assessment & Plan (1) Hematuria: Code(s): R31.9 - Hematuria, unspecified Qualifiers: Hematuria type: unspecified type Qualified Code(s): R31.9 - Hematuria, unspecified Plan: This is a 42-year-old female who presented to the walk-in clinic complaining of hematuria and bilateral flank/lower abdominal pain only with urinating. She states the hematuria is improving but the flank/abdominal pain has persisted with urination. On physical examination, she has no abdominal tenderness to palpation or guarding/rebound and no significant CVA tenderness to palpation. Her urinalysis showed 10 RBCs without leukocyte esterase or nitrites. I explained to the patient that it is possible that she has nephrolithiasis, which would need to be confirmed on CT abdomen/pelvis, which I can not do here. CBC/BMP ordered. Patient states she does not want to go to the emergency room so I recommended symptomatic management at this time including increase fluids, acetaminophen/ibuprofen for pain management, and to follow-up with the emergency room immediately if she were to develop decreased urination, worsening/constant flank/back pain, or worsening hematuria, or any significant laboratory abnormalities. Patient verbalized understanding and she is in agreement with the plan. Orders: Orders Complete Blood Count Auto Diff Today R31.9 - Hematuria, unspecified Basic Metabolic Panel Today R31.9 - Hematuria, unspecified AMB Urinalysis Automated Today Z13.9 - Encounter for screening, unspecified Coding Level of Care Code Est Pt Level 3 (66755) Diagnoses Hematuria, unspecified type R31.9 Hematuria type: unspecified type
== END 2023-07-26 15:07 | disposition home or self-care (01) ==
PROVIDERS: PCP Internal Medicine; Visit Provider Physician Assistant Medical
DX: R31.9 Hematuria, unspecified (principal)
CPT/HCPCS: 81003; 99213

== ENCOUNTER 2023-07-26 13:47 | Outpatient (REF) | payer OTHER, SELFPAY ==
[2023-07-26 16:09] LABS: MANUAL DIFF FLAG NO
[2023-07-26 16:31] LABS: Basophils Absolute Auto 0.1 X10*3/uL (0.0-0.2); Basophils Percent Auto 0.8 % (0-2); Eosinophils Absolute Auto 0.1 X10*3/uL (0.0-0.4); Eosinophils Percent Auto 1.7 % (0-4); Hematocrit 41.1 % (37.0-47.0); Hemoglobin 13.8 g/dl (12.0-16.0); Imm Gran Abs Auto 0.02 X10*3/uL (0.00-0.03); Imm Gran Pct Auto 0.3 % (0.0-0.4); Lymphocytes Absolute Auto 2.1 X10*3/uL (1.2-4.9); Lymphocytes Percent Auto 35.6 % (20-40); Mean Corpuscular HGB Conc 33.6 g/dl (31.0-35.0); Mean Corpuscular Hemoglobin 32.5 pg (27.0-33.0); Mean Corpuscular Volume 96.7 fL (80.0-98.0); Mean Platelet Volume 10.6 fL (9.4-12.3); Monocytes Absolute Auto 0.4 X10*3/uL (0.1-1.2); Neutrophils Absolute Auto 3.3 x10*3/uL (2.0-8.3); Neutrophils Percent Auto 54.6 % (45-73); Platelet Count 349 X10*3/uL (160-400); Red Blood Count 4.25 X10*6/uL (4.20-5.50); Red Cell Distribution Width 12.6 % (11.0-16.0)
[2023-07-26 16:54] LABS: Anion Gap 12 (12-20); Blood Urea Nitrogen 16 mg/dL (9-16); Calcium 8.8 mg/dL (8.4-10.2); Carbon Dioxide 26 mmol/L (22-29); Chloride 105 mmol/L (96-108); Estimated Glomerular Filt Rate > 60; Glucose Random 86 mg/dL (60-115); Potassium 3.8 mmol/L (3.3-5.1); Sodium 139 mmol/L (135-145)
== END 2023-07-26 13:48 | disposition home or self-care (01) ==
LOC: HO.HMGCLDS 13:47
PROVIDERS: PCP Internal Medicine; Visit Provider Physician Assistant Medical
DX: R31.9 Hematuria, unspecified (principal)
CPT/HCPCS: 36415; 80048; 85025

== ENCOUNTER 2023-08-14 10:27 | Outpatient (REF) | payer OTHER, SELFPAY | END 2023-08-14 10:28 | disposition home or self-care (01) | LOC: HO.MAMMO 10:27 | PROVIDERS: PCP Internal Medicine; Visit Provider Internal Medicine | DX: Z12.31 Encounter for screening mammogram for malignant neoplasm of breast (principal) | CPT/HCPCS: 77063; 77067 ==

== ENCOUNTER → 2023-08-14 10:30 | Outpatient (BNV) | payer OTHER, SELFPAY | PROVIDERS: PCP Internal Medicine; Visit Provider Radiology Diagnostic Radiology | DX: Z12.31 Encounter for screening mammogram for malignant neoplasm of breast (principal) | CPT/HCPCS: 77063; 77067 ==

== ENCOUNTER 2023-11-01 09:40 | Outpatient (AMB) | payer OTHER, SELFPAY ==
--- NOTE | 2023-12-18 13:25 | A.OFFPC_ITS ---
Vital Signs 12/18/23 13:26 Height 5 ft 3 in Weight 236 lb BMI 41.8 BP 122/84 Blood Pressure Location Lt brachial Position Sitting Pulse 82 Pulse Source Pulse Oximeter Pulse Oximetry (%) 99 Oxygen Delivery Method Room Air Intake Visit Reasons: PE/do not R/S has been cx by us X's Allergies shellfish derived Allergy (Intermediate, Verified 12/23/23 01:08) Shortness of Breath/itchy throat Medication List - Last Reconciled 12/18/23 by Yi Montano MD acetaminophen (Tylenol Extra Strength) 1,000 mg (2 x 500 mg) PO Q6H PRN albuterol sulfate 90 mcg/actuation 2 puffs inhalation Q6H PRN blood sugar diagnostic (Blood Glucose Test strips) daily blood-glucose meter As directed ywsyiauean-exkopgiunoqxb-jgsd 50-325-40 mg 1 tab PO DAILY PRN calcium citrate 1,000 mg PO DAILY [cane As directed] cyanocobalamin (vitamin B-12) 1,000 mcg IM Q4W diphenhydramine HCl (Benadryl) 25 mg PO TID PRN epinephrine (EpiPen 2-[place]a) 0.3 mg (0.3 mL) IM Q15M PRN fluticasone propionate 110 mcg/actuation inhalation [grab bar for tub As directed] [hand held shower head As directed] hydrocortisone 2.5% 1 appl topical BID PRN ipratropium-albuterol 0.5 mg-3 mg(2.5 mg base)/3 mL 3 mL inhalation Q6H PRN lamotrigine 100 mg PO BID lancets (FreeStyle Lancets) Once daily levetiracetam 750 mg PO BID qkypgcezqomh-ocu-moml-FA-vit K 45 mg iron- 800 mcg-120 mcg (Bariatric Multivitamins) 1 cap PO DAILY pantoprazole 40 mg PO DAILY [portable shower hose As directed] [rasied toilet seat with handles As directed] [shower chair with back and handles As directed] [shower grab bar As directed] [shower mat As directed] zolpidem 10 mg PO BEDTIME PRN Tobacco use date assessed: 12/18/23 Dental Screening Dental Screen Date: 12/18/23 Did you have a dental visit in the last 12 months?: Yes Did you have a dental problem in the last 6 months where you did not have access to dental care?: No Was dental information given to patient?: Patient has dentist HPI PE/do not R/S has been cx by us X's HPI Details 43-year-old lady with past medical histo ry significant for obstructive sleep apnea, obesity with history of sleeve gastrectomy done in 2020, acquired hypothyroidism, mild intermittent asthma and bipolar disorder type 1, here today for physical exam. She goes to [facility], followed by Dr. Solo who does her routine Pap and pelvic exam, currently up-to-date.. She is also up-to-date with her screening mammogram done earlier this year Complaining of painful varicosities in both lower extremities extending from thigh down to ankle. Patient states it gets worse towards the end of the day when she is on her feet frequently, has tried support stockings which does not help. Would like referral to a vein specialist for further treatment. [facility] Medical History (Updated 12/23/23 @ 01:14 by Yi Montano MD) Varicose veins of bilateral lower extremities with pain Elevated parathyroid hormone JOHN (obstructive sleep apnea) Obesity (BMI 30-39.9) Smoking Pre-diabetes COVID-19 vaccine series completed Pseudoseizures Impaired glucose tolerance Head injury BMI 50.0-59.9, adult JOHN on CPAP Thyroid nodule Condyloma acuminata Morbid obesity Mild intermittent asthma in adult without complication Acquired hypothyroidism Bipolar 1 disorder Surgical History History of esophagogastroduodenoscopy (EGD) History of repair of hiatal hernia History of sleeve gastrectomy (12/21/20) History of endometrial ablation History of suburethral sling procedure Hx of removal of cyst History of partial hysterectomy History of section History of tubal ligation Family History Father HTN (hypertension) Glaucoma Mental health disorder Psoriasis Diabetes Substance use disorder Mother Osteoporosis Kidney disease Arthritis Glaucoma Substance use disorder Mental health disorder Maternal Grandfather Mental health disorder Paternal Grandfather Mental health disorder Paternal Grandmother History of breast cancer Social History Household Members: Significant Other Housing: Apartment Are you a primary respiratory care technician to a significant other at home: No Do you presently have visiting nurse or other home services: Yes (significant other) Alcohol intake: current Alcohol intake frequency: holidays/special occasions only Patient Tobacco Use Status: Current everyday Tobacco user Tobacco use type: Cigarette Cigarette Packs Per Day: 0.5 Cigarettes Per Day: 4 Years Smoked: 30 e-Cigarette/Vaping Use: Never Used service: No Current occupational status: disabled Sexual orientation: Straight/Heterosexual Gender identity: Female Cognitive needs: No Hearing needs: No Vision needs: Yes Female Reproductive History Menstrual Date of last pap smear: 04/05/21 History of abnormal pap smear: No History of STI: No Date of Mammogram: 08/14/23 History of abnormal mammogram: No Questionnaire PHQ-9 Over the last 2 weeks, how often have you been bothered by any of the following problems? 1. Little interest or pleasure in doing things: several days 2. Feeling down, depressed, or hopeless: several days 3. Trouble falling or staying asleep, or sleeping too much: several days 4. Feeling tired or having little energy: several days 5. Poor appetite or overeating: several days 6. Feeling bad about yourself - or that you are a failure or have let yourself or your family down: several days 7. Trouble concentrating on things, such as reading the newspaper or watching television: several days 8. Moving or speaking so slowly that other people could have noticed. Or the opposite - being so fidgety or restless that you have been moving around a lot more than usual: not at all 9. Thoughts that you would be better off or of hurting yourself in some way: not at all Total score: 7 Depression Screening Interpretation: Positive (Seen and treated at [facility] for bipolar 1 disorder) Depression Screening Follow-up: Existing condition, In treatment and Community Mental Health Worker F/U Depression Screening Done: Yes Source: Developed by Drs. Sai Duffy, Kasey Sparks, Shahid Brenner and colleagues, with an educational markus from [employer]. Thrive Questionnaire Date Thrive assessed: 12/18/23 I am a: Patient What is your living situation today?: I have a steady place to live Within the past 12 months, did the food you bought not last and you didn't have the money to get more?: Sometimes True Within the past 12 months, did you worry whether your food would run out before you got money to buy more?: Sometimes True Do you have trouble paying for medicines?: No Do you have trouble getting transportation to medical appointments?: No Do you have trouble paying your heating and electricity bill?: No Do you have trouble taking care of your child, family member or friend?: No Do you have trouble with day-to-day activities such as bathing, preparing meals, shopping, managing finances, etc.?: Yes Are you currently unemployed and looking for a job?: No Are you interested in more education?: No Please select the resources that you would like help with: Housing/Longterm Currently or been in a relationship where the following occur: No concerns reported THRIVE Score: 2 AUDIT C Alcohol Use Questionnaire (AUDIT-C) 1. How often do you have a drink containing alcohol?: Never 3. How often do you have six or more drinks on one occasion?: Never Total Score: 0 ADALID-7 AMB Questionnaire ADALID-7 Date ADALID - 7 assessed: 12/18/23 Feeling nervous, anxious, or on edge: 1 = Several days Not being able to stop or control worryin = Not at all Worrying too much about different things: 0 = Not at all Trouble relaxin = Several days Being so restless that it is hard to sit still: 0 = Not at all Becoming easily annoyed or irritable: 2 = More than half the days Feeling afraid as if something awful might happen: 0 = Not at all Total ADALID-7 score (0-4 normal; 5-9 mild; 10-14 moderate; 15-21 severe): 4 Source: Developed by Drs. Sai Duffy, Kasey Sparks, Shahid Brenner and colleagues, with an educational markus from [employer]. ADALID-7 Assessment Billing ADALID-7 Assessment Tool: ADALID-7 Assessment 21015 Review of Systems Const Denies excessive sweating and Denies headache(s) Eyes Denies blurry vision ENT Denies dysphagia, Denies headache(s) and Denies hoarseness Card Denies chest pain, Denies irregular heart rhythm, Denies lightheadedness and Denies dyspnea Resp Denies cough and Denies dyspnea GI Denies abdominal pain, Denies change in bowel habits, Denies dysphagia, Denies diarrhea and Denies nausea Denies difficulty voiding, Reports hot flashes and Reports vaginal dryness Musc Reports joint swelling, Reports muscle cramps, Denies numbness, Reports stiffness and Reports tingling Skin/Breast Denies hirsutism, Denies alopecia and Denies rash Neuro Denies headache(s), Denies numbness and Reports tingling Psych Reports as per HPI Endo Denies cold intolerance, Denies excessive sweating and Denies heat intolerance Inder/Lymph Denies easy bruising Aller/Immun Reports no additional complaints Physical exam (Primary Care) Vital Signs: Last Vital Signs Pulse 82 12/18/23 13:26 BP 122/84 12/18/23 13:26 Pulse Ox 99 12/18/23 13:26 Oxygen Delivery Method Room Air 12/18/23 13:26 BMI result Body Mass Index 41.8 BMI Assessment/Plan discussion: High BMI High, discussed plan: dietary and physical activity Tobacco/Smoking Status: Tobacco use Status Tobacco use date assessed 12/18/23 12/18/23 13:27 Patient Tobacco Use Status Current everyday Tobacco 12/18/23 13:27 Tobacco use type Cigarette 12/18/23 13:27 e-Cigarette/Vaping Use Never Used 12/18/23 13:27 Are you ready to quit: No Tobacco cessation counseling provided: Yes PHQ-9: PHQ-9 Score PHQ-9: Total score 7 12/23/23 01:05 Depression Screening Interpretation: Positive (Seen and treated at [facility] for bipolar 1 disorder) Depression Screening Follow-up: Existing condition, In treatment and Community Mental Health Worker F/U Thrive Assessment: Date of Thrive Assessment Date Thrive assessed 12/18/23 12/18/23 13:41 Currently or been in a relationship where the following occur: No concerns reported Const Orientation/consciousness: patient oriented x3 HENMT Mouth: Normal oral and palatal mucosa present, oropharynx normal and moist mucous membranes Eyes General: appearance normal, both eyes and all related structures Neck Other: Nonpalpable thyroid gland Neck: Yes full ROM, Yes no lymphadenopathy and Yes supple Chest Chest palpation & inspection: normal inspection of the chest Breast/axilla palpation: normal palpation of the breasts Resp Auscultation: clear to auscultation bilaterally Cardio Other: S1-S2 present with regular rate and rhythm Peripheral pulses: Peripheral pulses 2+ throughout GI Inspection: Yes obesity Palpation (GI): Soft to palpation, nontender, no guarding and no masses Auscultation: normal bowel sounds General: Yes no CVA tenderness and Yes deferred (Currently being seen by OBGYN her Pap and pelvic exam) Back/Spine/Pelvis Back: no CVA tenderness and No back tenderness Skin Other: Varicose veins noted bilateral extending from thigh to ankle in some areas thrombosed Neuro General: patient oriented x3, gait normal, tone normal, moves all extremities, Normal light touch and pain sensation, no focal motor deficits and CN's II-XI intact bilaterally Extrem General: Yes full ROM, Yes no joint enlargement, Yes no pedal edema, Yes no calf tenderness and Yes normal gait Psych Appearance: grossly normal Mental Status: mental status grossly normal Speech and movement: Normal speech and movement present Affect: normal affect Attitude: cooperative Assessment and Plan Assessment & Plan (1) Annual visit for general adult medical examination with abnormal findings: Code(s): Z00.01 - Encounter for general adult medical examination with abnormal findings Plan: Will check appropriate labs. Recommended dental visit every 6 months and regular eye exams, at least every 2 years. Take adequate calcium in diet and vitamin-D 3 at 2000 IU per cap once a day, in addition to weight-bearing exercises to help maintain good muscle tone and weight control. Instructed to do self-breast exam, and continue to get yearly mammogram. She sees [facility] for her routine Pap and pelvic exam currently up-to-date.. Reminded to get her yearly flu shot and COVID booster, up-to-date with her Tdap and pneumococcal vaccination. (2) Obesity (BMI 30-39.9): Comment: 1 Code(s): E66.9 - Obesity, unspecified Plan: She already had sleeve gastrectomy, recommended Mediterranean diet is a healthy diet that helps, limit food high in fat, sugar, and calories. Eat slowly, pay attention to portion sizes, plan your meals ahead of time, start regular physical activity, at least 150 minutes of moderate intensity exercise, or 90 minutes per week of vigorous exercise. Keeping a food diary, tracking what you eat and your physical activity can help assess what improvements you can make. There are many health problems associated with being o verweight/obese, so it is important to improve your diet and exercise. (3) History of sleeve gastrectomy: Onset Date: 12/21/20 Code(s): Z90.3 - Acquired absence of stomach [part of] Plan: Patient requests to be referred back to Dr. Hernandez who did her sleeve gastrectomy for follow-up (4) Vitamin B12 deficiency: Code(s): E53.8 - Deficiency of other specified B group vitamins Plan: Will check vitamin B12 level (5) Varicose veins of bilateral lower extremities with pain: Code(s): I83.813 - Varicose veins of bilateral lower extremities with pain Plan: Referred to vascular surgeon for further evaluation management (6) Advanced directives, counseling/discussion: Code(s): Z71.89 - Other specified counseling Plan: Initiated the conversation about Advanced Directives. Advanced Directives help patients prepare for current and future decisions about their medical treatment and place of care. Discussed with patient that it is a process where a patients current condition and prognosis are reviewed, their wishes for information regarding their illness are elicited, and likely medical dilemmas are presented and options discussed. Healthcare proxy form completed The form can be amended as needed, reviewed yearly and make changes as needed (7) Smoking: Comment: Still smoking just 2 cigarettes a day, unable to quit completely. Code(s): F17.200 - Nicotine dependence, unspecified, uncomplicated Plan: Patient strongly advised to stop smoking, as smoking damages blood vessels, degenerative of joints and spine, damage to lungs and heart., predisposes to developing certain cancers like lung, breast, bladder, colon. Recommended to try decreasing cigarette use by 1-2 cigarettes a day. Advised to monitor what triggers are for smoking so that this can be discussed on the next office visit. We can discuss different options to quit smoking when ready. (8) Mild intermittent asthma in adult without complication: Comment: Chronic bronchial asthma, clinically seems to be controlled at this time, her continued smoking may be aggravating her symptoms. PULMONARY FUNCTION TEST IS BASICALLY NORMAL, DOES NOT SHOW ANY SIGNIFICANT OBSTRUCTIVE AIRWAY DISORDER. TX: Continue Flovent-110 2 puffs, b.i.d. use ProAir 2 puffs Q. 4-6 hours only p.r.n. Code(s): J45.20 - Mild intermittent asthma, uncomplicated Plan: Strongly advised to quit smoking but not ready to quit . Currently on fluticasone inhaler and rescue albuterol inhaler. Up-to-date with pneumococcal vaccine, reminded to get yearly flu shot (9) Bipolar 1 disorder: Comment: sees therapist and sanam (psych) in [facility] Code(s): F31.9 - Bipolar disorder, unspecified (10) Acquired hypothyroidism: Comment: Currently not on thyroid medicines Code(s): E03.9 - Hypothyroidism, unspecified Plan: Currently not on any medication at this time, will check TSH and free T4 levels Coding Level of Care Code Est Pt Prev Care 40-64y([id number]) Diagnoses Annual visit for general adult medical examination with abnormal findings Z00.01 Obesity (BMI 30-39.9) E66.9 History of sleeve gastrectomy Z90.3 Vitamin B12 deficiency E53.8 Varicose veins of bilateral lower extremities with pain I83.813 Advanced directives, counseling/discussion Z71.89 Smoking F17.200 Mild intermittent asthma in adult without complication J45.20 Bipolar 1 disorder F31.9 Acquired hypothyroidism E03.9 Additional Codes ADALID-7 Assessment Billing - ADALID-7 Assessment Tool: ADALID-7 Assessment 11144 ([id number])
[2023-12-18 13:26] VITALS: BP 122/84; PULSE 82; O2SAT 99; BMI 41.8
== END 2023-12-18 14:36 | disposition home or self-care (01) ==
PROVIDERS: PCP Internal Medicine; Visit Provider Internal Medicine
DX: Z00.00 Encounter for general adult medical examination without abnormal findings (principal); F31.9 Bipolar disorder, unspecified; Z68.41 Body mass index [BMI] 40.0-44.9, adult; E66.9 Obesity, unspecified; Z90.3 Acquired absence of stomach [part of]; E53.8 Deficiency of other specified B group vitamins; I83.813 Varicose veins of bilateral lower extremities with pain; Z71.89 Other specified counseling; F17.200 Nicotine dependence, unspecified, uncomplicated; J45.20 Mild intermittent asthma, uncomplicated; E03.9 Hypothyroidism, unspecified
CPT/HCPCS: 99396

== ENCOUNTER 2024-03-03 11:38 | Outpatient (AMB) | payer OTHER, SELFPAY ==
--- NOTE | 2024-03-03 11:43 | A.OFFVIS_ITS ---
Vital Signs 03/03/24 11:44 Height 5 ft 3 in Weight 235 lb BMI 41.6 Intake Visit Reasons: INSTRUCTOR CREELER/PCP referral for VV Intake Note: INSTRUCTOR CREELER/Re-Referral for VV bilateral LE, pt was seen last in 2017. States VV have worsened since then. Pt states she gets itching, burning and cramping. States she has a large VV behind her right knee that is very painful. Pt states she gets right LE cramping w/ ambulation. Pt states she elevates legs as well. Accompanied by: Child Allergies shellfish derived Allergy (Intermediate, Verified 03/03/24 11:47) Shortness of Breath/itchy throat HPI HPI INSTRUCTOR CREELER/PCP referral for VV: Details: Very pleasant 43-year-old female presents for evaluation regarding varicose veins. She had actually seen us back in August of 2017. At that time she was negative for any significant venous insufficiency. Since that time on 12/21/2020 she underwent a laparoscopic sleeve gastrectomy. She had gone on to lose over 100 lb. She reports that she has gained some of this weight back. She reports that she has significant lower extremity thigh and calf swelling along with large varicosities. She is now concerned about those. They have been a source of pain and discomfort for her. She reports it is right more so than left Patient denies any history of DVT/ PE. - she was also negative for reflux on 07/31/2017 Patient denies any history of phlebitis. Trial of compression includes - prescription compression since August of 2017 They now present for vascular evaluation regarding their varicose veins. COUNT INCLUDES [facility] Medical History Varicose veins of bilateral lower extremities with pain Elevated parathyroid hormone JOHN (obstructive sleep apnea) Obesity (BMI 30-39.9) Smoking Pre-diabetes COVID-19 vaccine series completed Pseudoseizures Impaired glucose tolerance Head injury BMI 50.0-59.9, adult JOHN on CPAP Thyroid nodule Condyloma acuminata Morbid obesity Mild intermittent asthma in adult without complication Acquired hypothyroidism Bipolar 1 disorder Surgical History History of esophagogastroduodenoscopy (EGD) History of repair of hiatal hernia History of sleeve gastrectomy (12/21/20) History of endometrial ablation History of suburethral sling procedure Hx of removal of cyst History of partial hysterectomy History of section History of tubal ligation Family History Father HTN (hypertension) Glaucoma Mental health disorder Psoriasis Diabetes Substance use disorder Mother Osteoporosis Kidney disease Arthritis Glaucoma Substance use disorder Mental health disorder Maternal Grandfather Mental health disorder Paternal Grandfather Mental health disorder Paternal Grandmother History of breast cancer Social History Household Members: Significant Other Housing: Apartment Are you a primary critical care nurse to a significant other at home: No Do you presently have visiting nurse or other home services: Yes (significant other) Alcohol intake: current Alcohol intake frequency: holidays/special occasions only Patient Tobacco Use Status: Current everyday Tobacco user Tobacco use type: Cigarette Cigarette Packs Per Day: 0.5 Cigarettes Per Day: 4 Years Smoked: 30 e-Cigarette/Vaping Use: Never Used service: No Current occupational status: disabled Sexual orientation: Straight/Heterosexual Gender identity: Female Cognitive needs: No Hearing needs: No Vision needs: Yes Review of Systems Const Reports as per HPI ENT Reports no additional complaints Card Denies chest pain, Denies chest pain at rest and Denies chest pain with activity Resp Denies chest congestion and Denies cough GI Reports no additional complaints Musc Details: pain over varicosities, aching of lower extremities, swelling, cramping, heaviness and tiredness, itching Denies abnormal gait Skin/Breast Reports pruritus and Denies wounds Neuro Reports no additional complaints and Denies abnormal gait Psych Denies no additional complaints Physical Exam Vital Signs: BMI result Body Mass Index 41.6 Const General: cooperative, healthy appearing and comfortable Orientation/consciousness: oriented to person, oriented to place and oriented to time Neck Carotids: no bruits Chest Chest palpation & inspection: normal inspection of the chest and normal palpation of entire chest wall Resp Effort & Inspection: normal respiratory effort and able to speak in complete sentences Cardio Rate: regular rate Heart sounds: S1 normal heart sound present and S2 normal heart sound present Peripheral pulses: Peripheral pulses 2+ throughout GI Inspection: Yes normal to inspection Skin Other: +2 edema, large rope-like varicosities greater than 4 mm CEAP Classification C4 - skin color changes Ep - Etiology Primary As - superficial veins P - reflux General skin exam: dry skin Neuro General: oriented to person, oriented to place and oriented to time Extrem Right lower extremity: full ROM, normal capillary refill and edema Left lower extremity: full ROM, normal capillary refill and edema Psych Mental Status: mental status grossly normal Assessment & Plan Assessment & Plan (1) Varicose veins of right lower extremity with inflammation: Code(s): I83.11 - Varicose veins of right lower extremity with inflammation Category: Medical Plan: In short, the patient has evidence of venous insufficiency. I have discussed the pathophysiology with the patient. In addition I have provided informational material regarding venous disease to the patient. We have discussed conservative measures including compression, elevation, and exercise. I have also provided a handout regarding appropriate use of compression stockings and where to purchase good compression stockings as well. I have taken the liberty of ordering venous insufficiency testing with the patient. They will follow up with me after testing. The patient had an opportunity to ask questions regarding the treatment plan. All questions were answered. Imaging studies, laboratory studies and physical exam results were discussed and reviewed in detail. No major barriers to understanding were identified. The patient expressed understanding and agreement with the above treatment plan. The patient is aware they should contact our office by phone for worsening of the current condition or the appearance of new symptoms. Thank you for allowing me to participate in the vascular care of this patient. If you have any questions or concerns regarding the treatment for the above condition please do not hesitate to contact me. The office telephone contact is [phone]. This note is constructed using voice recognition software. While every effort has been made to ensure accuracy, casting wheel operator helper errors may have been included. Thank you for allowing me to participate in the care of your patient. Yours sincerely, Oli Tomlinson MD, FACS, R.P.V.I. Orders: Orders US venous duplex LE BI 1 Week I83.11 - Varicose veins of right lower extremity with inflammation Coding Level of Care Code New Pt Level 4 (17746) Diagnoses Varicose veins of right lower extremity with inflammation I83.11
[2024-03-03 11:44] VITALS: BMI 41.6
== END 2024-03-03 12:33 | disposition home or self-care (01) ==
PROVIDERS: PCP Internal Medicine; Visit Provider Surgery Vascular Surgery
DX: I83.11 Varicose veins of right lower extremity with inflammation (principal)
CPT/HCPCS: 99204

== ENCOUNTER → 2024-03-03 11:38 | Outpatient (BNVA) | payer OTHER, SELFPAY | PROVIDERS: PCP Internal Medicine; Visit Provider Surgery Vascular Surgery | DX: I83.11 Varicose veins of right lower extremity with inflammation (principal) | CPT/HCPCS: 99202 ==

== ENCOUNTER 2024-04-02 13:00 | Outpatient (REF) | payer OTHER, SELFPAY | END 2024-04-02 13:01 | disposition home or self-care (01) | LOC: HO.US 13:00 | PROVIDERS: PCP Internal Medicine; Visit Provider Surgery Vascular Surgery | DX: I83.11 Varicose veins of right lower extremity with inflammation (principal) | CPT/HCPCS: 93970 ==

== ENCOUNTER 2024-04-23 14:56 | Outpatient (AMB) | payer OTHER, SELFPAY ==
--- NOTE | 2024-04-23 14:58 | MHC.OFFVIS ---
Intake Visit Reasons: Follow Up 04/02/24 Intake Note: F/U U/S. 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 Back on 12/21/2020 she underwent laparoscopic sleeve gastrectomy. She had lost nearly 100 lb and regained some weight afterwards. She actually has gone back to seen her bariatric surgeon and has been started on Wegovy. She now presents for routine follow-up with venous insufficiency testing [facility] Medical History Varicose veins of bilateral lower extremities with pain Elevated parathyroid hormone JHON (obstructive sleep apnea) Obesity (BMI 30-39.9) Smoking Pre-diabetes COVID-19 vaccine series completed Pseudoseizures Impaired glucose tolerance Head injury BMI 50.0-59.9, adult JOHN on CPAP Thyroid nodule Condyloma acuminata Morbid obesity Mild intermittent asthma in adult without complication Acquired hypothyroidism Bipolar 1 disorder Surgical History History of esophagogastroduodenoscopy (EGD) History of repair of hiatal hernia History of sleeve gastrectomy (12/21/20) History of endometrial ablation History of suburethral sling procedure Hx of removal of cyst History of partial hysterectomy History of section History of tubal ligation Family History Father HTN (hypertension) Glaucoma Mental health disorder Psoriasis Diabetes Substance use disorder Mother Osteoporosis Kidney disease Arthritis Glaucoma Substance use disorder Mental health disorder Maternal Grandfather Mental health disorder Paternal Grandfather Mental health disorder Paternal Grandmother History of breast cancer Social History Household Members: Significant Other Housing: Apartment Are you a primary nanny caregiver to a significant other at home: No Do you presently have visiting nurse or other home services: Yes (significant other) Alcohol intake: current Alcohol intake frequency: holidays/special occasions only Patient Tobacco Use Status: Current everyday Tobacco user Tobacco use type: Cigarette Cigarette Packs Per Day: 0.5 Cigarettes Per Day: 4 Years Smoked: 30 e-Cigarette/Vaping Use: Never Used service: No Current occupational status: disabled Sexual orientation: Straight/Heterosexual Gender identity: Female Cognitive needs: No Hearing needs: No Vision needs: Yes Review of Systems Const Denies chills, Denies fatigue, Denies fever(s), Denies weight gain and Denies weight loss ENT Denies dizziness Card Denies chest pain, Denies leg edema, Denies lightheadedness, Denies palpitations, Denies dyspnea on exertion, Denies orthopnea and Denies other Resp Denies cough and Denies dyspnea on exertion GI Denies hematochezia and Denies change in stool character Musc Details: pain over varicosities, aching of lower extremities, swelling, cramping, heaviness and tiredness, itching Denies abnormal gait, Denies muscle weakness, Denies numbness, Denies radiating pain into limb and Denies tingling Skin/Breast Reports pruritus and Denies wounds Neuro Denies abnormal gait, Denies dizziness, Denies numbness and Denies tingling Psych Denies no additional complaints Endo Denies fatigue and Denies palpitations Physical Exam Const General: cooperative, healthy appearing and comfortable Orientation/consciousness: oriented to person, oriented to place and oriented to time Neck Carotids: no bruits Chest Chest palpation & inspection: normal inspection of the chest and normal palpation of entire chest wall Resp Effort & Inspection: normal respiratory effort and able to speak in complete sentences Cardio Rate: regular rate Heart sounds: S1 normal heart sound present and S2 normal heart sound present Peripheral pulses: Peripheral pulses 2+ throughout GI Inspection: Yes normal to inspection Skin Other: +2 edema, large rope-like varicosities greater than 4 mm bilateral thighs. CEAP Classification C4 - skin color changes Ep - Etiology Primary As - superficial veins P - reflux General skin exam: dry skin Neuro General: oriented to person, oriented to place and oriented to time Extrem Right lower extremity: full ROM, normal capillary refill and edema Left lower extremity: full ROM, normal capillary refill and edema Psych Mental Status: mental status grossly normal Results Reviewed Results Reviewed: Brief summary of venous insufficiency testing is as follows: right great saphenous vein: negative right small saphenous vein: negative right accessory vein: none present left great saphenous vein: negative left small saphenous vein: negative left accessory vein: none present Please note there is no evidence of any venous aneurysms or significant tortuosity Assessment & Plan Assessment & Plan (1) Varicose veins of right lower extremity with inflammation: Code(s): I83.11 - Varicose veins of right lower extremity with inflammation Category: Medical Plan: In short patient has some varicose veins that have been a source of discomfort for her. Her underlying great saphenous and small saphenous has been negative for reflux. She is currently restarted her weight loss journey and is back on Wegovy. She also does complain of some lower back issues which may be contributing to all of this. I would like to conservatively manage her veins for the next 6 months in the hopes that she does lose additional weight. If that is the case the veins may become more pronounced and may require microphlebectomy at that point. This was discussed in detail with her and she is in agreement. She will see us back in 6 months for vein check. I encouraged her to stay compliant and follow up with her bariatric surgeon. Thank you for allowing us to participate in her care. The patient had an opportunity to ask questions regarding the treatment plan. All questions were answered. Imaging studies, laboratory studies and physical exam results were discussed and reviewed in detail. No major barriers to understanding were identified. The patient expressed understanding and agreement with the above treatment plan. The patient is aware they should contact our office by phone for worsening of the current condition or the appearance of new symptoms. Thank you for allowing me to participate in the vascular care of this patient. If you have any questions or concerns regarding the treatment for the above condition please do not hesitate to contact me. The office telephone contact is [phone]. This note is constructed using voice recognition software. While every effort has been made to ensure accuracy, market intelligence consultant errors may have been included. Thank you for allowing me to participate in the care of your patient. Yours sincerely, Oli Tomlinson MD, FACS, R.P.V.I. Coding Level of Care Code Est Pt Level 4 (38071) Diagnoses Varicose veins of right lower extremity with inflammation I83.11
== END 2024-04-23 15:22 | disposition home or self-care (01) ==
PROVIDERS: PCP Internal Medicine; Visit Provider Surgery Vascular Surgery
DX: I83.11 Varicose veins of right lower extremity with inflammation (principal)
CPT/HCPCS: 99214

== ENCOUNTER → 2024-04-23 14:56 | Outpatient (BNVA) | payer OTHER, SELFPAY | PROVIDERS: PCP Internal Medicine; Visit Provider Surgery Vascular Surgery | DX: I83.11 Varicose veins of right lower extremity with inflammation (principal) | CPT/HCPCS: 99212 ==

== ENCOUNTER 2024-05-07 09:08 | Outpatient (REF) | payer OTHER, SELFPAY ==
[2024-05-07 11:11] LABS: Cholesterol 205 mg/dL (<200); Free T4 (Free Thyroxine) 1.11 ng/dL (0.71-1.85); HDL Cholesterol 43 mg/dL (>40); LDL Cholesterol Calculated 145 mg/dL (<100); Thyroid Stimulating Hormone 2.48 uIU/mL (0.32-4.0); Triglycerides 88 mg/dL (<150); Vitamin D 25-OH Total 33.3 ng/mL (>30)
[2024-05-07 11:22] LABS: Folate 6.9 ng/mL (> or = 4.0); Vitamin B12 351 pg/mL (200-900)
== END 2024-05-07 09:09 | disposition home or self-care (01) ==
LOC: HO.LAB 09:08
PROVIDERS: PCP Internal Medicine; Visit Provider Internal Medicine
DX: E66.9 Obesity, unspecified (principal); Z90.3 Acquired absence of stomach [part of]; E53.8 Deficiency of other specified B group vitamins; E55.9 Vitamin D deficiency, unspecified; E03.9 Hypothyroidism, unspecified
CPT/HCPCS: 36415; 80061; 82306; 82607; 82746; 84439; 84443

== ENCOUNTER 2024-06-10 10:57 | Outpatient (AMB) | payer OTHER, SELFPAY ==
--- NOTE | 2024-06-10 10:59 | A.OFFVIS_ITS ---
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 Accompanied by: Spouse Allergies shellfish derived Allergy (Intermediate, Verified 03/03/24 11:47) Shortness of Breath/itchy throat Medication List - Last Reconciled 06/10/24 by Jesus Chester MD acetaminophen (Tylenol Extra Strength) 1,000 mg (2 x 500 mg) PO Q6H PRN albuterol sulfate 90 mcg/actuation 2 puffs inhalation Q6H PRN blood sugar diagnostic (Blood Glucose Test strips) daily blood-glucose meter As directed rpnxbspfqz-wiwzbnxlqtphy-lzto 50-325-40 mg 1 tab PO DAILY PRN calcium citrate 1,000 mg PO DAILY [cane As directed] cyanocobalamin (vitamin B-12) 1,000 mcg IM Q4W diphenhydramine HCl (Benadryl) 25 mg PO TID PRN epinephrine (EpiPen 2-Olayinka) 0.3 mg (0.3 mL) IM Q15M PRN fluticasone propionate 110 mcg/actuation inhalation [grab bar for tub As directed] [hand held shower head As directed] hydrocortisone 2.5% 1 appl topical BID PRN ipratropium-albuterol 0.5 mg-3 mg(2.5 mg base)/3 mL 3 mL inhalation Q6H PRN lamotrigine 100 mg PO BID lancets (FreeStyle Lancets) Once daily lbrhbfteqttu-bdg-gssm-FA-vit K 45 mg iron- 800 mcg-120 mcg (Bariatric Multivitamins) 1 cap PO DAILY pantoprazole 40 mg PO DAILY [portable shower hose As directed] [rasied toilet seat with handles As directed] [shower chair with back and handles As directed] [shower grab bar As directed] [shower mat As directed] tirzepatide (weight loss) (Zepbound) 5 mg subcut QWEEK zolpidem 10 mg PO BEDTIME PRN HPI Comments Details: Keira is here for consultation regarding pseudoseizures. Apparently, she has had these issues for the last 10 years or so. Per neurology note, she has pseudoseizures. She averages about 5 a month or so. Multiple times including fingers twist, eyes rolling extra. Biting at she, tongue extra. Feels tired after that and sleeps. She may thrash and follow out of bed. Other symptoms as listed include clenching of teeth, drooling, incontinence. Sometimes, her significant other massages her chest but not entirely clear why. At no point has there been any clear-cut cardiac etiology identified. She does not have any history of cardiomyopathy or in fact any cardiac issues. Apparently multiple EKGs/ 24 hour ambulatory EKGs have also been unremarkable. Has been previously treated for psychiatric illness in [place]. [facility] Medical History Varicose veins of bilateral lower extremities with pain Elevated parathyroid hormone JOHN (obstructive sleep apnea) Obesity (BMI 30-39.9) Smoking Pre-diabetes COVID-19 vaccine series completed Pseudoseizures Impaired glucose tolerance Head injury BMI 50.0-59.9, adult JOHN on CPAP Thyroid nodule Condyloma acuminata Morbid obesity Mild intermittent asthma in adult without complication Acquired hypothyroidism Bipolar 1 disorder Surgical History History of esophagogastroduodenoscopy (EGD) History of repair of hiatal hernia History of sleeve gastrectomy (12/21/20) History of endometrial ablation History of suburethral sling procedure Hx of removal of cyst History of partial hysterectomy History of section History of tubal ligation Family History Father HTN (hypertension) Glaucoma Mental health disorder Psoriasis Diabetes Substance use disorder Mother Osteoporosis Kidney disease Arthritis Glaucoma Substance use disorder Mental health disorder Maternal Grandfather Mental health disorder Paternal Grandfather Mental health disorder Paternal Grandmother History of breast cancer Social History Household Members: Significant Other Housing: Apartment Are you a primary continuum of care manager to a significant other at home: No Do you presently have visiting nurse or other home services: Yes (significant o ther) Alcohol intake: current Alcohol intake frequency: holidays/special occasions only Patient Tobacco Use Status: Current everyday Tobacco user Tobacco use type: Cigarette Cigarette Packs Per Day: 0.5 Cigarettes Per Day: 4 Years Smoked: 30 e-Cigarette/Vaping Use: Never Used service: No Current occupational status: disabled Sexual orientation: Straight/Heterosexual Gender identity: Female Cognitive needs: No Hearing needs: No Vision needs: Yes Review of Systems Const Denies chills, Denies daytime sleepiness, Denies fatigue, Denies fever(s), Denies poor appetite, Denies snoring, Denies stops breathing during sleep, Denies weakness, Denies weight gain and Denies weight loss Eyes Denies loss of vision ENT Denies dizziness and Denies hearing loss Card Denies chest pain, Denies irregular heart rhythm, Denies claudication, Denies leg edema, Denies lightheadedness, Denies palpitations, Denies dyspnea on exertion and Denies orthopnea Resp Denies cough, Denies excessive phlegm production, Denies dyspnea on exertion, Denies snoring and Denies wheezing GI Denies abdominal pain, Denies hematochezia, Denies change in bowel habits, Denies nausea and Denies vomiting Denies urinary frequency and Denies dysuria Musc Denies arthralgias, Denies muscle weakness, Denies numbness and Denies other Skin/Breast Denies nail changes and Denies rash Neuro Denies Abnormal speech present, Denies dizziness, Denies loss of vision, Denies memory loss, Denies numbness and Denies weakness Psych Denies depression and Denies memory loss Endo Denies fatigue and Denies palpitations Inder/Lymph Denies easy bruising Aller/Immun Denies wheezing Physical Exam Vital Signs: Last Vital Signs Pulse 84 06/10/24 11:00 BP 106/70 06/10/24 11:00 BMI result Body Mass Index 39.7 Const General: comfortable and no acute distress Orientation/consciousness: patient oriented x3 HEENT Other: Unremarkable Head: Yes normal to inspection Neck Neck: Yes normal visual inspection Chest Chest palpation & inspection: normal inspection of the chest Resp Auscultation: clear to auscultation bilaterally Cardio Palpation: normal PMI Heart sounds: S1 normal heart sound present, S2 normal heart sound present, no gallops, no murmurs and no rubs GI Palpation (GI): Soft to palpation Back/Spine/Pelvis Other: unremarkable Skin General skin exam: no rashes or lesions noted Neuro General: patient oriented x3 Speech: No Abnormal speech present Extrem General: Yes normal to inspection Psych Mental Status: mental status grossly normal Office Procedures EKG Details: EKG with underlying sinus rhythm at 84/Min; no significant ST-T changes and otherwise unremarkable[place]. [id number], Complete Assessment & Plan Assessment & Plan (1) Pseudoseizures: Comment: caused by emotional stress-takes keppra, topamax & lamictal-sees Dr. 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 We will start with an echocardiogram and 30 day monitor. If necessary, consider implantable loop recorder. Follow-up after the above. 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
[2024-06-10 11:00] VITALS: BP 106/70; PULSE 84; BMI 39.7
== END 2024-06-10 11:28 | disposition home or self-care (01) ==
PROVIDERS: PCP Internal Medicine; Visit Provider Internal Medicine
DX: F44.5 Conversion disorder with seizures or convulsions (principal)
CPT/HCPCS: 93010; 99203

== ENCOUNTER → 2024-06-10 10:57 | Outpatient (BNVA) | payer OTHER, SELFPAY | PROVIDERS: PCP Internal Medicine; Visit Provider Internal Medicine | DX: F44.5 Conversion disorder with seizures or convulsions (principal); R55 Syncope and collapse; R00.1 Bradycardia, unspecified | CPT/HCPCS: 93005; 99202 ==

== ENCOUNTER → 2024-06-25 13:12 | Outpatient (REF) | payer OTHER, SELFPAY ==
--- NOTE | 2024-06-25 13:15 | CA_ITS ---
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 The calculated ejection fraction is 64% by biplane method. - No obvious valvular pathology seen on this study. Findings Left Ventricle Normal left ventricular cavity size. The left ventricular systolic function is normal. The calculated ejection fraction is 64% by biplane method. There is no evidence of regional wall motion abnormalities. Diastolic function is normal for age. Mild focal hypertrophy of the basal septum. Right Ventricle Normal right ventricular cavity size and systolic function. Atria Both atria are normal in size. Aortic Valve There is a normal trileaflet aortic valve. There is no aortic valve stenosis. There is no aortic valve regurgitation. Mitral Valve The mitral valve appears normal. There is no mitral valve regurgitation. There is no mitral valve stenosis. Pulmonic Valve The pulmonic valve is likely normal. Tricuspid Valve There is trace tricuspid valve regurgitation. There is no evidence of pulmonary hypertension. Great Vessels The asc aorta and aortic arch are normal in size. Small plaque is seen in the sino tubular ridge. Venous The inferior vena cava is normal in size and collapses greater than 50% with inspiration. Pericardium/Pleural There is no evidence of pericardial effusion. Prior Study Comparison No prior study available for comparison. Recommendations, Care & Conclusions No obvious valvular pathology seen on this study. Measurements 2D Linear Measurements IVSd: 0.81 0.6-0.9/0.6-1.0 cm LVIDd: 4.95 3.9-5.3/4.2-5.9 cm LVIDd Index: 2.49 2.4-3.2/2.2-3.1 cm/m2 LVIDs: 3.38 2.0-3.6 cm LVPWd: 1.01 0.7-1.1 cm LA Diam: 3.30 2.7-3.8/3.0-4.0 cm LAIDs Index: 1.66 1.5-2.3 cm/m2 LV Mass: 196.85 67-162/88-224 g LV Mass Index: 98.92 43-95/49-115 g/m2 LVOT Diam: 2.30 3.0+(-)1.3 cm 2D Systolic Function EF 4C: 61.90 >55% EF 2C: 66.50 >55% EF BiP: 64.30 >55% Mitral Valve MV Pk E: 0.62 MV PK A: 0.74 MV Decel Time: 274.00 E/A: 0.80 E'Lateral: 11.20 E'Medial: 8.27 E/E' Med: 7.50 E/E' Lat: 5.50 PHT: 80.00 MVA PHT: 2.75 Decel Aiken: 2.27 Aortic Valve AoV Pk James: 1.22 AoV Mn James: 0.77 AoV VTI: 0.24 AoV Pk Grad: 6.00 Aov Mn Grad: 3.00 RENARD Cont.VTI: 3.77 LVOT LVOT Pk James: 1.09 LVOT Mn James: 0.71 LVOT VTI: 0.22 LVOT Pk Grad: 5.00 LVOT Mn Grad: 2.00 LVOT Diam: 2.30 LVOT Area: 4.15 Diastolic Function MV Pk E: 0.62 MV Pk A: 0.74 E/A: 0.80 E'Medial: 8.27 E/E' Med: 7.50 E' Laterial: 11.20 E/E' Lat: 5.50 Right Ventricle TAPSE (mm): 23.90 TVS' James: 12.50 Tricuspid Valve RA Press: 3.00 Great Vessels Aorta Sinus of Valsalva: 3.45 2.0-3.[address] Ridge: 2.56 1.7-3.4 cm Ao Asc: 3.00 2.1-3.4 cm Ao Arch: 2.70 Updated in Other Vendor System with Status of Final Jesus Chester MD electronically signed on 06/27/2024 10:44:00 AM with status of Final
== END ==
LOC: HO.CARD 13:12
PROVIDERS: PCP Internal Medicine; Visit Provider Internal Medicine
DX: R00.1 Bradycardia, unspecified (principal); R55 Syncope and collapse; F44.5 Conversion disorder with seizures or convulsions
CPT/HCPCS: 93270; 93306

== ENCOUNTER → 2024-06-25 13:15 | Outpatient (BNV) | payer OTHER, SELFPAY | PROVIDERS: PCP Internal Medicine; Visit Provider Internal Medicine | DX: I42.2 Other hypertrophic cardiomyopathy (principal) | CPT/HCPCS: 93306 ==

== ENCOUNTER 2024-08-13 13:14 | Outpatient (AMB) | payer OTHER, SELFPAY ==
--- NOTE | 2024-08-13 13:38 | A.OFFVIS_ITS ---
Vital Signs 08/13/24 13:39 Height 5 ft 3 in Weight 211 lb 10.3 oz BMI 37.5 BP 118/68 Blood Pressure Location Lt brachial Position Sitting Pulse 87 Pulse Source Pulse Oximeter Intake Visit Reasons: follow up Allergies shellfish derived Allergy (Intermediate, Verified 03/03/24 11:47) Shortness of Breath/itchy throat Medication List - Last Reconciled 08/13/24 by Nirav Chau NP acetaminophen (Tylenol Extra Strength) 1,000 mg (2 x 500 mg) PO Q6H PRN albuterol sulfate 90 mcg/actuation 2 puffs inhalation Q6H PRN blood sugar diagnostic (Blood Glucose Test strips) daily blood-glucose meter As directed ksapzntmeu-dgvveknanojvh-rerf 50-325-40 mg 1 tab PO DAILY PRN calcium citrate 1,000 mg PO DAILY [cane As directed] cyanocobalamin (vitamin B-12) 1,000 mcg IM Q4W diphenhydramine HCl (Benadryl) 25 mg PO TID PRN epinephrine (EpiPen 2-[place]) 0.3 mg (0.3 mL) IM Q15M PRN fluticasone propionate 110 mcg/actuation inhalation [grab bar for tub As directed] [hand held shower head As directed] hydrocortisone 2.5% 1 appl topical BID PRN ipratropium-albuterol 0.5 mg-3 mg(2.5 mg base)/3 mL 3 mL inhalation Q6H PRN lamotrigine 100 mg PO BID lancets (FreeStyle Lancets) Once daily eabcswodkisc-ewa-tnwa-FA-vit K 45 mg iron- 800 mcg-120 mcg (Bariatric Multivitamins) 1 cap PO DAILY pantoprazole 40 mg PO DAILY [portable shower hose As directed] [rasied toilet seat with handles As directed] [shower chair with back and handles As directed] [shower grab bar As directed] [shower mat As directed] tirzepatide (weight loss) (Zepbound) 5 mg subcut QWEEK zolpidem 10 mg PO BEDTIME PRN HPI Comments Details: This is a 43-year-old female patient presenting for a follow-up visit. Patient with a history of pseudoseizures dating back to approximately 10 years ago following a fall in [place], and is currently under the care of neurology. The patient reports experiencing frequent episodes approximately 5-6 per month which she states can occur both during sleep and while awake. Patient states that her EEGs in the past have all been negative and so neurologist refer her to cardiology to evaluate for possible cardiac etiology. She was last seen 2 months ago and has undergone ECHO echocardiogram and 30 day event monitor. Patient reports that she did experience a few episodes of seizure activity while wearing the monitor during sleep. Patient denies any other cardiac symptoms including exertional chest pain, shortness of breath, palpitations, dizziness, orthopnea, PND, leg edema, presyncope, or syncope. [facility] Medical History Varicose veins of bilateral lower extremities with pain Elevated parathyroid hormone JOHN (obstructive sleep apnea) Obesity (BMI 30-39.9) Smoking Pre-diabetes COVID-19 vaccine series completed Pseudoseizures Impaired glucose tolerance Head injury BMI 50.0-59.9, adult JOHN on CPAP Thyroid nodule Condyloma acuminata Morbid obesity Mild intermittent asthma in adult without complication Acquired hypothyroidism Bipolar 1 disorder Surgical History History of esophagogastroduodenoscopy (EGD) History of repair of hiatal hernia History of sleeve gastrectomy (12/21/20) History of endometrial ablation History of suburethral sling procedure Hx of removal of cyst History of partial hysterectomy History of section History of tubal ligation Family History Father HTN (hypertension) Glaucoma Mental health disorder Psoriasis Diabetes Substance use disorder Mother Osteoporosis Kidney disease Arthritis Glaucoma Substance use disorder Mental health disorder Maternal Grandfather Mental health disorder Paternal Grandfather Mental health disorder Paternal Grandmother History of breast cancer Social History Household Members: Significant Other Housing: Apartment Are you a primary senior care specialist to a significant other at home: No Do you presently have visiting nurse or other home services: Yes (significant other) Alcohol intake: current Alcohol intake frequency: holidays/special occasions only Patient Tobacco Use Status: Current everyday Tobacco user Tobacco use type: Cigarette Cigarette Packs Per Day: 0.5 Cigarettes Per Day: 4 Years Smoked: 30 e-Cigarette/Vaping Use: Never Used service: No Current occupational status: disabled Sexual orientation: Straight/Heterosexual Gender identity: Female Cognitive needs: No Hearing needs: No Vision needs: Yes Review of Systems Const Denies weakness ENT Denies dizziness Card Denies chest pain, Denies chest pain with activity, Denies syncope, Denies rapid heart rate, Denies pedal edema, Denies edema, Denies leg edema, Denies lightheadedness, Denies palpitations, Reports dyspnea, Denies dyspnea on exertion and Denies orthopnea Resp Denies cough, Reports dyspnea and Denies dyspnea on exertion GI Denies hematochezia and Denies change in stool character Musc Denies abnormal gait, Denies muscle cramps, Denies muscle weakness, Denies numbness, Denies radiating pain into limb and Denies tingling Neuro Denies abnormal gait, Denies dizziness, Denies syncope, Denies numbness, Denies tingling and Denies weakness Endo Denies palpitations Physical Exam Vital Signs: Last Vital Signs Pulse 87 08/13/24 13:39 BP 118/68 08/13/24 13:39 BMI result Body Mass Index 37.5 Const General: cooperative, healthy appearing, comfortable and no acute distress Orientation/consciousness: patient oriented x3 HEENT Head: Yes normal to inspection Neck Neck: Yes normal visual inspection, Yes trachea midline and Yes supple Chest Chest palpation & inspection: normal inspection of the chest Resp Effort & Inspection: normal respiratory effort Auscultation: clear to auscultation bilaterally, no crackles, no rales, no rhonchi and no wheezes Cardio Jugular venous distension: no JVD Palpation: normal PMI Rate: regular rate Rhythm: regular rhythm Heart sounds: S1 normal heart sound present, S2 normal heart sound present, no click, no gallops, no murmurs and no rubs Peripheral pulses: Peripheral pulses 2+ throughout GI Inspection: Yes normal to inspection Palpation (GI): Soft to palpation Auscultation: normal bowel sounds Skin General skin exam: no rashes or lesions noted Neuro General: patient oriented x3 Extrem General: Yes normal to inspection, No no pedal edema and No calf tenderness Psych Appearance: grossly normal Mental Status: mental status grossly normal Speech and movement: Normal speech and movement present Assessment & Plan Assessment & Plan (1) Pseudoseizures: Comment: caused by emotional stress-takes keppra, topamax & lamictal-sees Dr. 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 06/25/2024-patient underwent 30 day cardiac event monitor that showed baseline normal sinus rhythm with average heart rate of 85 beats per minute, frequent sinus tachycardia and rare PACs. No significant bradycardia, pauses, or arrhythmias were noted. Given these findings, patient's symptoms are less likely to be of cardiac origin. Patient will follow up with us on an as-needed basis. In the interim, patient will call the office with any concerns or change in symptoms. This note was generated using voice recognition software. While every effort has been made to ensure accuracy and proper aerospace project manager, there may be occasional errors that could affect the content or meaning of the described symptoms. Coding Level of Care Code Est Pt Level 3 (77686) Diagnoses Pseudoseizures F44.5 Time Spent (min) 29 Comment Time spent in reviewing the chart, test results, assessment, counseling and documentation.
[2024-08-13 13:39] VITALS: BP 118/68; PULSE 87; BMI 37.5
== END 2024-08-13 13:57 | disposition home or self-care (01) ==
LOC: HO.HCS 13:14
PROVIDERS: PCP Internal Medicine
DX: F44.5 Conversion disorder with seizures or convulsions (principal)
CPT/HCPCS: 99213

== ENCOUNTER → 2024-08-13 13:14 | Outpatient (BNVA) | payer OTHER, SELFPAY | PROVIDERS: PCP Internal Medicine | DX: F44.5 Conversion disorder with seizures or convulsions (principal) | CPT/HCPCS: 99212 ==

== ENCOUNTER 2024-08-17 10:12 | Outpatient (REF) | payer OTHER, SELFPAY | END 2024-08-17 10:13 | disposition home or self-care (01) | LOC: HO.MAMMO 10:12 | PROVIDERS: PCP Internal Medicine; Visit Provider Internal Medicine | DX: Z12.31 Encounter for screening mammogram for malignant neoplasm of breast (principal) | CPT/HCPCS: 77063; 77067 ==

== ENCOUNTER → 2024-08-17 10:15 | Outpatient (BNV) | payer OTHER, SELFPAY | PROVIDERS: PCP Internal Medicine; Visit Provider Internal Medicine | DX: Z12.31 Encounter for screening mammogram for malignant neoplasm of breast (principal) | CPT/HCPCS: 77063; 77067 ==

== ENCOUNTER → 2024-10-22 15:05 | Outpatient (BNVA) | payer OTHER, SELFPAY | PROVIDERS: PCP Internal Medicine; Visit Provider Surgery Vascular Surgery | DX: I83.11 Varicose veins of right lower extremity with inflammation (principal) | CPT/HCPCS: 99212 ==

== ENCOUNTER 2024-11-13 07:31 | Outpatient (AMB) | payer OTHER, SELFPAY ==
--- OUTSIDE RECORDS SUMMARY | 2024-11-13 07:34 | XMS_ITS | Clinical Summary ---
Author Organization [facility] Address [address] [place], [place] [id number] Phone Care Team Providers Care Class C Driver Name Role Phone Yi Montano MD Primary Care Provider Allergies Active Allergy Reactions Criticality Noted Date Comments Shellfish Containing Products Shortness Of Breath,Itching High 05/19/2021 Medications FREESTYLE LITE Strp strips USE TO CHECK BLOOD SUGAR DAILY 03/18/20 21 Active DULoxetine (CYMBALTA) 20 MG capsule 05/16/19 22 Active DULoxetine (CYMBALTA) 60 MG capsule 05/16/19 22 Active FLOVENT HFA 110 mcg/actuation inhaler 05/16/19 22 Active hydrOXYzine (VISTARIL) 50 MG capsule 05/16/19 22 Active lamoTRIgine (LAMICTAL) 100 MG IMMEDIATE release tablet 05/16/19 22 Active multivitamin-min erals-lutein (CENTRUM SILVER) Tab Take 1 tablet by mouth daily. Bariatric vitamin Active calcium citrate (CALCITRATE) 950 mg (200 mg elemental) tablet Take 2 tablets by mouth daily. Active EPINEPHrine 0.3 mg/0.3 mL auto-injector Inject 0.3 mg into the muscle. 05/23/19 22 Active ipratropium-albu teroL (DUONEB) 0.5-3 mg (2.5 mg base)/3 mL nebulizer solution 06/23/19 22 Active FREESTYLE 28 gauge lancets USE TO TEST EVERY DAY 05/30/19 22 Active VENTOLIN HFA 90 mcg/actuation inhaler Inhale 1 puff into the lungs as needed. 03/12/20 23 Active butalbital-aceta minophen-caffein e (FIORICET, ESGIC) 50-325-40 mg per tablet take 1 tablet by mouth every 8 hours as needed for 30 days 12/25/19 24 Active pantoprazole (PROTONIX) 40 MG tablet Take 40 mg by mouth daily. Active ergocalciferol (DRISDOL) 50,000 unit capsuleIndicatio ns:Vitamin D deficiency TAKE 1 CAPSULE BY MOUTH ONE TIME PER WEEK 4 capsule 1 04/06/20 24 Active tirzepatide, weight loss, (ZEPBOUND) 12.5 mg/0.5 mL subcutaneous penIndications:C lass 2 obesity due to excess calories without serious comorbidity with body mass index (BMI) of 35.0 to 35.9 in adult INJECT 0.5 ML (12.5 MG TOTAL) UNDER THE SKIN EVERY 7 DAYS. 2 mL 2 11/06/19 25 Active tirzepatide, weight loss, (ZEPBOUND) 12.5 mg/0.5 mL subcutaneous penIndications:C lass 2 obesity due to excess calories without serious comorbidity with body mass index (BMI) of 35.0 to 35.9 in adult Inject 0.5 mL (12.5 mg total) under the skin every 7 days. 2 mL 10/03/19 25 025 Discontinued Active Problems Problem Noted Date Diagnosed Date Morbid obesity with BMI of 40.0-44.9, adult 03/15 Assessment & Plan (05/12/2024 1:08 PM EST): This a 43-year-old woman who is in our medical weight loss program and attempt to lose the amount of weight that she has gained after having laparoscopic sleeve gastrectomy several years ago at an outside facility with me. The patient is on Zepbound and is doing well with weight loss of about 14 pounds in the past month. She does report that she is still hungry and is thinking about food all the time but is placing herself. We will increase her Zepbound to 5 mg. Patient should follow-up with me again in 2 months timeframe. She must add strength training for exercise that she is not doing any formal exercise currently. She will continue current eating plan and water intake. She will continue other medications as reviewed. She is not stable and is considered morbidly obese. Assessment & Plan (03/30/2024 10:29 AM EST): This is a 43-year-old woman who underwent a laparoscopic sleeve gastrectomy with me at an outside facility many years ago. The patient has been lost to follow-up for at least 2 years since she was seen here. She has not been consistent with her follow-ups and has gained 30 pounds since she was seen here about 2-1/2 years ago. The patient is interested in more weight loss. On discussing her eating plan she is not getting enough protein and is eating to many carbohydrates. She is not exercising formally. She also is still smoking and was asked to work on quitting. She reports she is trying to quit smoking. I have given the patient the eating plan which includes 2 meal replacements at 9 AM and 3 PM every day and 2 meals of 4 ounces of protein with 6 ounce of vegetables at 12 PM and 6 PM and half cup of carbohydrate with the dinner meal. The patient was encouraged at exercise that should be strenuous 30 minutes 4 times weekly. I have also placed her on Wegovy 0.25 mg weekly for the next 4 weeks. I will follow-up with the patient again in 1 month to see how she is doing. I have also ordered all of her nutrition labs that she has not had any bariatric follow-up in over 2 years. She will continue current medications as reviewed. She is not stable and is considered morbidly obese. Bariatric surgery status 03/30/2024 Intestinal malabsorption following gastrectomy 1 05/31/2023 Nontoxic uninodular goiter 03/21/2023 Assessment & Plan (05/07/2023 11:31 AM EST): The patient has a subcentimeter nodule that is actually decreased in size. It does not have abnormal features it is too small to biopsy. I do not think that the patient needs serial ultrasound monitoring of this nodule. I would not give her a follow-up appointment she should follow-up with her primary care physician. Assessment & Plan (03/21/2023 3:40 PM EST): Has a subcentimeter nodule in the right lower pole that has not had any significant growth and has not been biopsied. I do not know that this needs continued ultrasound monitoring but the patient was referred for follow-up so at this point will request repeat ultrasound and I asked her to have it done at [facility]. She informs me that she does not have Sveta's thyroiditis based on previous biochemical workup. Based on the fact that the thyroid parenchyma is homogeneous that appears to be the case. At this point her thyroid functions are in the reference range she is not hypothyroid does not require thyroxine supplementation. I asked her to return for follow-up in 3 months after she has obtained a thyroid ultrasound at [facility]. Status post sleeve gastrectomy 08/22/2021 Class 2 obesity due to exces s calories without serious comorbidity with body mass index (BMI) of 35.0 to 35.9 in adult 08/22/2021 Assessment & Plan (10/02/2024 1:34 PM EDT): This is a 43-year-old woman who is on GLP-1 medications we have increased her to 12.5 mg of Zepbound as she reports close to the end the week she is eating larger volumes but she has no side effects. She is still smoking cigarettes and again we have talked to her about quitting she is not ready to quit. She is not exercising and we also encouraged her to add formalized exercise with strength training at least 3-4 times a week for 30 minutes. She will continue current eating plan but decrease her carbohydrate intake. She will continue current water intake. She should add MiraLAX to her water in order to help soften her stools. She will continue other medications as reviewed. She will follow-up with me again in 3 months timeframe. She is not stable and is considered obese. Assessment & Plan (07/10/2024 2:18 PM EDT): This is a 43-year-old woman with a previous history of laparoscopic sleeve gastrectomy who had weight gain. She is now enters appetite and doing well with weight loss. She will go up to 7.5 mg and she is appetite. She must add some formalized exercise at least 30 minutes 3 times a week. She will continue her medications as reviewed. She will continue current eating plan and water intake. She will follow-up with me again in 3 months timeframe. She is not stable and is considered obese. Assessment & Plan (08/22/2021 1:38 PM EDT): This is a 40-year-old lady who is status post laparoscopic sleeve gastrectomy with hiatal hernia repair December 21, 2020 who is doing okay with weight loss but could be doing better. Patient has not increased variety of food that she is eating and she is still drinking 3 protein shakes a day and only eating 1 meal that which is a salad. I recommended that she increase the variety of food that she is eating specifically solid foods. I recommended that patient consume a protein shake of 30 g of protein the [employer] life protein shake at 9 AM, she should eat 2 ounces of protein with vegetables at 12 PM, she should have a Chinese yogurt or a 15 g of protein protein bar at 3 PM, she should eat an additional 2 to 3 ounces of protein with vegetables at 6 PM. She may have a piece of fruit at 7 or 8 PM for the last meal. Patient was encouraged to increase formalize exercise and add resistance training to increase basal metabolic rate. She will increase water intake to at least 80 ounces of water on a daily basis. She still has not completed nutrition labs and plans to complete the fasting nutrition labs tomorrow. I have set up an appointment with our offal baler to discuss her eating habits and to help her with a variety of food choices. She should see the dietitian within 2 weeks. I will follow-up with her in the office again in 6 weeks timeframe. Patient should continue current medications as reviewed. She is not stable and is considered obese. Class 2 severe obesity due t o excess calories with serious comorbidity and body mass index (BMI) of 37.0 to 37.9 in adult 05/19/2021 Assessment & Plan (10/17/2021 1:52 PM EDT): This a 41-year-old lady who is status post laparoscopic sleeve gastrectomy who has had a weight loss stall and has actually gained weight since her last appointment. Patient reports there have been significant stressors such as family deaths and depression recently which has caused her to snack more frequently and eat in the middle night. The patient was encouraged to avoid eating in the middle night. She will also stop using any creamy dressings and will only use Estonian's or vinaigrette dressing not greater than 2 tablespoons. Patient will add 20 minutes of resistance band exercises 3 times weekly to her current walking regimen. She will increase water intake to at least 64 ounces of water on daily basis. Patient will continue current medications as reviewed. I have ordered blood work which the patient has yet to complete. She was encouraged again to complete the blood work. She will follow- up with the dietitian in 6 weeks and me again in 10 weeks timeframe. I ordered physical therapy and the patient has an appointment at the end of November which was the earliest available time. Patient is not stable is considered obese. Assessment & Plan (06/23/2021 3:38 PM EST): This is a 40-year-old lady who is status post laparoscopic sleeve gastrectomy hiatal hernia repair December 21, 2020. She has had very slow weight loss. Patient reports getting back on the eating plan and adding exercise only recently within the past 2 weeks. Patient should have evidence of return of weight loss by the next visit. Patient should add more solid foods such as protein and vegetables chicken fish broccoli cauliflower and decrease her intake of protein shakes. She should consume 2 protein shakes per day and 2 meals that consists of protein and vegetables. Patient should increase her cardiovascular exercise to 40 minutes of exercise at least 4 times a day. Patient should continue current water intake. I have ordered nutrition labs as the patient is 6 months status post weight loss surgery. She will continue current medications as reviewed. She is not stable is considered obese. I will follow up with her again in the office in 6 weeks timeframe. Assessment & Plan (05/19/2021 1:41 PM EST): This is a 40-year-old lady who underwent laparoscopic sleeve gastrectomy with hiatal hernia repair December 2020. She has had relatively slow weight loss over the past several months as she developed Covid and was unable to exercise secondary to severe shortness of breath. Patient also has degenerative disc disease with spinal stenosis and is supposed to undergo surgery to repair this. She has been told to avoid any strenuous exercise until she has surgery. Patient was eating large amounts of carbohydrate than she should have been based on information she received at the previous practice from the physician assistant hall director. I have recommended she stick to proteins and vegetables and 1 serving of carbohydrate per day which is a slow absorption carbohydrate. Patient will continue current water intake between 64 and 100 ounces of water on a daily basis. She was again encouraged to quit smoking. She is working on quitting smoking once again. I have warned her about the complications of smoking which include gastritis which can lead to ulceration and perforation of the gastric sleeve. Patient will continue current medications as prescribed. She is considered obese and is not stable. I will follow up with the patient again in 4 weeks timeframe at which point we will check nutrition labs including vitamin levels for her 6-month visit. Encounters Date Type Department Care Team Description 11/05/2024 Refill [facility] General Surgical Care [address] [place] [address] [place] [address] Kacy Hernandez MD Medication Refill 10/02/2024 1:00 PM EDT Office Visit [facility] Surgical [address] [place] [address] Kacy Hernandez MD Class 2 obesity due to excess calories without serious comorbidity with body mass index (BMI) of 35.0 to 35.9 in adult (Primary Dx); Status post sleeve gastrectomy; Bariatric surgery status 09/10/2024 Refill [facility] Surgical [address] [place] [address] Kacy Hernandez MD Medication Refill from Last 3 Months Immunizations Immunization Administration Dates Next Due Influenza Quadrivalent Preservative Free IM 02/13,05/03/2020,05/21/2017 Influenza Quadrivalent w/ Preservative IM 2018,05/12/2018 Pneumococcal polysaccharide PPSV23 11/28/2017 Td (adult),2 Lf Tetanus Toxo id, PF, Adsorbed 02/19/2019 Tdap 09/10/2018 Family History Medical History Relation Comments Heart disease Father Liver disease Father Diabetes type II Mother High cholesterol Mother Relation Status Comments Brother Father Mother Alive Sister Social History Tobacco Use Types Packs/Day Years Used Date Smoking Tobacco: Every Day Cigarettes Smokeless Tobacco: Never Tobacco Cessation:Ready to Q uit: Not Asked; Counseling Given: Not Answered Alcohol Use Standard Drinks/Week Comments Not Currently 0 (1 standard drink = 0.6 oz pur e alcohol) Education Answer Date Recorded Are you interested in more education? Not on kamlesh e 08/11/2022 Are you concerned about learning? Not on file 08/11/2022 No 08/11/2022 No 08/11/2022 Digital Access Answer Date Recorded No 09/09/2022 No 09/09/2022 Reliable internet access at home? Not on file 09/09/2022 Device with a working camera? Not on file Comments Unknown Sex and Gender Information Value Date Recorded Sex Assigned at Female 05/15/2021 3:07 PM EST Legal Sex Female 3:23 PM EDT Gender Identity Female 05/15/2021 3:07 PM EST Sexual Orientation Straight 05/15/2021 3: 07 PM EST Last Filed Vital Signs Vital Sign Reading Time Taken Comments Blood Pressure 104/68 10/02/2024 1:00 PM EDT Pulse 81 10/02/2024 1:00 PM EDT Temperature 36.6 C (97.8 F) 10/02/2024 1:00 PM EDT Respiratory Rate - - Oxygen Saturation 99% 10/02/2024 1:00 PM EDT Inhaled Oxygen Concentration - - Weight 91.5 kg (201 lb 12.8 oz) 10/02/2024 1:00 PM EDT Height 160 cm (5' 2.99 ) 10/02/2024 1: 00 PM EDT Body Mass Index 35.76 10/02/2024 1:00 PM EDT Plan of Treatment Upcoming Encounters Date Type Department Care Team (Late st Contact Info) Description 12/28/2024 1:00 PM EDT [facility] [address] [place] [address] Kacy Hernandez MD [address] [facility], 2nd [place] [address] Health Maintenance Due Date Last Done Comments DEPRESSION SCREENING 1991 SMOKING Hx and SMOKELESS TOBACCO SCREENING 10/09/1992 HEPATITIS C SCREENING 10/09/1997 HIV ONE-TIME SCREENING (18-6 5 YEARS) 10/09/1997 PAP SMEAR 10/09/2000 PNEUMOCOCCAL VACCINES (0-49 years) (2 of 2 - PCV) 11/28/2018 11/28/2017 MAMMOGRAM 2019 COVID-19 VACCINE (4 - 2023-2 5 season) 2023 05/09/2021, 09/28/2020, 09/07/2020 COLOGUARD 10/09/2024 COLONOSCOPY 10/09/2024 COLORECTAL CANCER SCREENING 10/09/2024 FIT TEST 10/09/2024 FOBT 10/09/2024 SIGMOIDOSCOPY 10/09/2024 VIRTUAL COLONOSCOPY 10/09/2024 SCREENING FOR DIABETES 04/01/2027 , 04/01/2024 Adult Td,Tdap Booster 02/19/2029 02/19/2019 , 09/10/2018 LIPID PANEL 04/01/2029 04/01/2024 HEPATITIS A VACCINES Aged Out No long er eligible based on patient's age to complete this topic HIB VACCINES Aged Out No longer eligi ble based on patient's age to complete this topic MENINGOCOCCAL VACCINES (ACWY) Aged Out No longer eligible based on patient's age to complete this topic MENINGOCOCCAL VACCINES (B) Aged Out N o longer eligible based on patient's age to complete this topic Medical Devices Not on file Procedures Procedure Name Priority Date/Time Associated Diagnosis Comments LIPID PANEL Routine 04/01/2024 9:25 AM EST Intestinal malabsorption following gastrectomy from Last 3 Months or Most Recently Relevant to Health Maintenance Results * (ABNORMAL) Lipid panel (04/01/2024 9:25 AM EST) HDL 61 mg/dL [facility] Comment: Interpretation <40 mg/dL: Low HDL cholesterol (major risk factor for CHD) Greater than or equal to 60 mg/dL: High HDL cholesterol ( negative risk factor for CHD) HDL - cholesterol is affected by a number of factors, e.g. smoking, excerise, hormones, sex and age. CHOLESTEROL 245(H) 0 - 240 mg/dL [facility] TRIGLYCERIDES 87 30 - 160 mg/dL [facility] LDL 167(H) 50 - 129 mg/dL [facility] Comment: LDL levels in terms of risk for coronary heart disease: <100 mg/dL: Optimal 100-129 mg/dL: Near or above optimal 130-159 mg/dL: Borderline high 160-189 mg/dL: High >190 mg/dL: Very High CARDIAC RISK RATIO 4.0 3.3 - 4.4 C [facility] Blood 04/01/2024 9:25 AM EST 04/01/2024 9:56 AM EST us Kacy Hernandez MD LAB BLOOD ORDERABLES Final Result [facility] [address] [place] [address] from Last 3 Months or Most Recently Relevant to Health Maintenance Insurance [id number] [place] [address] [employer] [facility] [employer] [id number] [place] [address] [place] [address] [phone] [place] [address] [id number] [place] [address] [place] [address] [phone] [place] [address] [place] [address] [phone] [place] [address] [place] [address] [phone] [place] [address] [place] [address] [phone] [facility] Care Teams Class C Driver Relationship Specialty Start Date End Date Yi Montano MD [address] [place] [address] PCP - General Internal Medicine 01/24/21 Additional Source Comments The information contained in this document represents components of the legal health record. It is not the complete legal health record.[facility]
[2024-11-13 07:36] VITALS: BMI 37.4
--- NOTE | 2024-11-13 07:36 | A.OFFVIS_ITS ---
Vital Signs 11/13/24 07:36 Height 5 ft 3 in Weight 211 lb BMI 37.4 Intake Visit Reasons: Right leg micro Accompanied by: Self / Same As Patient Allergies shellfish derived Allergy (Intermediate, Verified 11/13/24 07:36) Shortness of Breath/itchy throat PFSH Medical History Varicose veins of bilateral lower extremities with pain Elevated parathyroid hormone JOHN (obstructive sleep apnea) Obesity (BMI 30-39.9) Smoking Pre-diabetes COVID-19 vaccine series completed Pseudoseizures Impaired glucose tolerance Head injury BMI 50.0-59.9, adult JOHN on CPAP Thyroid nodule Condyloma acuminata Morbid obesity Mild intermittent asthma in adult without complication Acquired hypothyroidism Bipolar 1 disorder Surgical History History of esophagogastroduodenoscopy (EGD) History of repair of hiatal hernia History of sleeve gastrectomy (12/21/20) History of endometrial ablation History of suburethral sling procedure Hx of removal of cyst History of partial hysterectomy History of section History of tubal ligation Family History Father HTN (hypertension) Glaucoma Mental health disorder Psoriasis Diabetes Substance use disorder Mother Osteoporosis Kidney disease Arthritis Glaucoma Substance use disorder Mental health disorder Maternal Grandfather Mental health disorder Paternal Grandfather Mental health disorder Paternal Grandmother History of breast cancer Social History Household Members: Significant Other Housing: Apartment Are you a primary critical care physician to a significant other at home: No Do you presently have visiting nurse or other home services: Yes (significant other) Alcohol intake: current Alcohol intake frequency: holidays/special occasions only Patient Tobacco Use Status: Current everyday Tobacco user Tobacco use type: Cigarette Cigarette Packs Per Day: 0.5 Cigarettes Per Day: 4 Years Smoked: 30 e-Cigarette/Vaping Use: Never Used service: No Current occupational status: disabled Sexual orientation: Straight/Heterosexual Gender identity: Female Cognitive needs: No Hearing needs: No Vision needs: Yes Physical Exam Vital Signs: BMI result Body Mass Index 37.4 Office Procedures Vascular Office Procedure Details Details: Diagnosis: Right Leg varicose veins with inflammation Procedure: Right leg Microphlebectomy Anesthesia: Local Infiltration 20 cc, Tumescent: 0 cc. Varicose veins were marked in the standing position on the right leg and the patient was then placed in the prone position. The right lower extremity was prepared and draped to allow knee flexion in the sterile field. The patient had large superficial varicose veins with significant symptoms of pain. It was therefore determined to perform microphlebectomies of the clusters of varicose veins. The patient had bulging varicose veins which were previously marked in the standing position. A small stab incision was made longitudinally directly overlying the varicose vein in the calf and the varicose vein was grasped with a hemostat aided by a vein hook. It was then dissected as far proximally and distally as possible and avulsed. A total of 21 stab incisions were made and the procedure of stab phlebectomies was repeated 21 times. Hemostasis was checked and stab incision sites were closed with steri-strips and sterile dressing was given with gauze and krilex wrap followed by an kaelyn bandage. There were no complications and blood loss was minimal. Post-Op instructions were given and a follow-up appointment was recommended. [id number] - Stab Phlebectomy >20 All charges added?: Procedure code (CPT) selection complete Assessment & Plan Assessment & Plan (1) Varicose veins of right lower extremity with inflammation: Comment: 11/13/2024 - right leg microphlebectomy Code(s): I83.11 - Varicose veins of right lower extremity with inflammation Category: Medical Plan: See op note Coding Level of Care Code Procedure Only Diagnoses Varicose veins of right lower extremity with inflammation I83.11 CPT Codes Details - Vascular 6: 78009 - Stab Phlebectomy >20 ([id number])
== END 2024-11-13 08:45 | disposition home or self-care (01) ==
LOC: HO.HVS 07:31
PROVIDERS: PCP Internal Medicine; Visit Provider Surgery Vascular Surgery
DX: I83.11 Varicose veins of right lower extremity with inflammation (principal)
CPT/HCPCS: 37766

== ENCOUNTER → 2024-11-13 07:31 | Outpatient (BNVA) | payer OTHER, SELFPAY | PROVIDERS: PCP Internal Medicine; Visit Provider Surgery Vascular Surgery | DX: I83.11 Varicose veins of right lower extremity with inflammation (principal); G47.33 Obstructive sleep apnea (adult) (pediatric); R73.03 Prediabetes; E66.01 Morbid (severe) obesity due to excess calories; Z68.43 Body mass index [BMI] 50.0-59.9, adult; J45.20 Mild intermittent asthma, uncomplicated; E03.8 Other specified hypothyroidism; F31.9 Bipolar disorder, unspecified; A63.0 Anogenital (venereal) warts; F17.210 Nicotine dependence, cigarettes, uncomplicated | CPT/HCPCS: 37766; J2003 ==

== ENCOUNTER 2024-11-26 09:25 | Outpatient (AMB) | payer OTHER, SELFPAY ==
--- NOTE | 2024-11-26 09:28 | A.OFFVIS_ITS ---
Intake Visit Reasons: 2 week follow up right leg micro Intake Note: Patient presents for 2 week follow up s/p micro. No pain. Still has steri strips on leg. One incision is visibly red , multiple bruises as well. Accompanied by: Self / Same As Patient Allergies shellfish derived Allergy (Intermediate, Verified 11/26/24 09:30) Shortness of Breath/itchy throat HPI HPI 2 week follow up right leg micro: Details: Very pleasant 44-year-old female presents for follow-up status post right lower extremity microphlebectomy. Postprocedure she notes a significant improvement. She has developed a lot of varicosities as she has lost nearly 190 lb since her gastric bypass surgery. This was done nearly 4 years ago in December. She now is concerned about her left lower extremity varicosities. [facility] Medical History Varicose veins of bilateral lower extremities with pain Elevated parathyroid hormone JOHN (obstructive sleep apnea) Obesity (BMI 30-39.9) Smoking Pre-diabetes COVID-19 vaccine series completed Pseudoseizures Impaired glucose tolerance Head injury BMI 50.0-59.9, adult JOHN on CPAP Thyroid nodule Condyloma acuminata Morbid obesity Mild intermittent asthma in adult without complication Acquired hypothyroidism Bipolar 1 disorder Surgical History History of esophagogastroduodenoscopy (EGD) History of repair of hiatal hernia History of sleeve gastrectomy (12/21/20) History of endometrial ablation History of suburethral sling procedure Hx of removal of cyst History of partial hysterectomy History of section History of tubal ligation Family History Father HTN (hypertension) Glaucoma Mental health disorder Psoriasis Diabetes Substance use disorder Mother Osteoporosis Kidney disease Arthritis Glaucoma Substance use disorder Mental health disorder Maternal Grandfather Mental health disorder Paternal Grandfather Mental health disorder Paternal Grandmother History of breast cancer Social History Household Members: Significant Other Housing: Apartment Are you a primary patient care nursing assistant to a significant other at home: No Do you presently have visiting nurse or other home services: Yes (significant other) Alcohol intake: current Alcohol intake frequency: holidays/special occasions only Patient Tobacco Use Status: Current everyday Tobacco user Tobacco use type: Cigarette Cigarette Packs Per Day: 0.5 Cigarettes Per Day: 4 Years Smoked: 30 e-Cigarette/Vaping Use: Never Used service: No Current occupational status: disabled Sexual orientation: Straight/Heterosexual Gender identity: Female Cognitive needs: No Hearing needs: No Vision needs: Yes Review of Systems Const Reports as per HPI ENT Reports no additional complaints Card Denies chest pain, Denies chest pain at rest and Denies chest pain with activity Resp Denies chest congestion and Denies cough GI Reports no additional complaints Musc Details: pain over varicosities, aching of lower extremities, swelling, cramping, heaviness and tiredness, itching Denies abnormal gait Skin/Breast Reports pruritus and Denies wounds Neuro Reports no additional complaints and Denies abnormal gait Psych Denies no additional complaints Physical Exam Const General: cooperative, healthy appearing and comfortable Orientation/consciousness: oriented to person, oriented to place and oriented to time Neck Carotids: no bruits Chest Chest palpation & inspection: normal inspection of the chest and normal palpation of entire chest wall Resp Effort & Inspection: normal respiratory effort and able to speak in complete sentences Cardio Rate: regular rate Heart sounds: S1 normal heart sound present and S2 normal heart sound present Peripheral pulses: Peripheral pulses 2+ throughout GI Inspection: Yes normal to inspection Skin Other: +2 edema, large rope-like varicosities greater than 4 mm left calf and thigh CEAP Classification C4 - skin color changes Ep - Etiology Primary As - superficial veins P - reflux General skin exam: dry skin Neuro General: oriented to person, oriented to place and oriented to time Extrem Right lower extremity: full ROM, normal capillary refill and edema Left lower extremity: full ROM, normal capillary refill and edema Psych Mental Status: mental status grossly normal Assessment & Plan Assessment & Plan (1) Varicose veins of left lower extremity with inflammation: Code(s): I83.12 - Varicose veins of left lower extremity with inflammation Category: Medical Plan: This patient has varicose veins with inflammation. They continue to be a source of discomfort for the patient. The patient has tried conservative treatment with compression, leg elevation and exercise program for over 3 months time. They have been compliant with all treatment. This has provided minimal relief for the patient. I do not anticipate this course of treatment will alter the underlying etiology. The patient has been scheduled for lower extremity venous treatment inclusive of --- left leg microphlebectomy. Risks, benefits, and complications of this procedure has been discussed in detail with the patient including but not limited to bleeding, infection, and the development of a DVT. The patient has demonstrated a clear understanding and has consented. We will schedule the patient as soon as possible. Thank you for allowing us to participate in this patient's care. If there are any questions or concerns please do not hesitate to contact us. Coding Level of Care Code Est Pt Level 4 (98553) Complex EM visit Add On G2211 Diagnoses Varicose veins of left lower extremity with inflammation I83.12
--- OUTSIDE RECORDS SUMMARY | 2024-11-26 10:00 | XMS_ITS | Clinical Summary ---
Author Organization [facility] Address [address] [place], [place] [id number] Phone Care Team Providers Care Termite Control Representative Name Role Phone Yi Montano MD Primary [...] asked her to have it done at [facility]. She informs me that she does [...] she has obtained a thyroid ultrasound at [facility]. Status post sleeve gastrectomy 08/22/2021 Class [...] shake of 30 g of protein the [employer] life protein shake at 9 AM, she should eat 2 ounces of protein with vegetables at 12 PM, she should have a [place] Islander yogurt or a 15 g of protein [...] have set up an appointment with our livestock judging coach to discuss her eating habits and to [...] any creamy dressings and will only use Tajik's or vinaigrette dressing not greater than 2 [...] at the previous practice from the physician pediatric assistant. I have recommended she stick to proteins [...] Type Department Care Team Description 11/05/2024 Refill [facility] General Surgical Care [address] [place] [address] [place] [address] Kacy Hernandez MD Medication Refill 10/02/2024 1:00 PM EDT Office Visit [facility] Surgical [address] [place] [address] Kacy Hernandez MD Class 2 obesity due to excess calories without serious comorbidity with body mass index (BMI) of 35.0 to 35.9 in adult (Primary Dx); Status post sleeve gastrectomy; Bariatric surgery status 09/10/2024 Refill [facility] Surgical [address] [place] [address] Kacy Hernandez MD Medication Refill from Last [...] Description 12/28/2024 1:00 PM EDT Office Visit [facility] General Surgical Care [address] [place] [address] Kacy Hernandez MD 15 [facility], 2nd [place] [address] [email or web address] Health Maintenance Due Date Last Done Comments [...] (04/01/2024 9:25 AM EST) HDL 61 mg/dL [facility] Comment: Interpretation <40 mg/dL: Low HDL cholesterol (major risk factor for CHD) Greater than or equal to 60 mg/dL: High HDL cholesterol ( negative risk factor for CHD) HDL - cholesterol is affected by a number of factors, e.g. smoking, excerise, hormones, sex and age. CHOLESTEROL 245(H) 0 - 240 mg/dL [facility] TRIGLYCERIDES 87 30 - 160 mg/dL [facility] LDL 167(H) 50 - 129 mg/dL [facility] Comment: LDL levels in terms of risk for coronary heart disease: <100 mg/dL: Optimal 100-129 mg/dL: Near or above optimal 130-159 mg/dL: Borderline high 160-189 mg/dL: High >190 mg/dL: Very High CARDIAC RISK RATIO 4.0 3.3 - 4.4 C [facility] Blood 04/01/2024 9:25 AM EST 04/01/2024 9:56 AM EST us Kacy Hernandez MD LAB BLOOD ORDERABLES Final Result [facility] [address] [place] [address] from Last 3 Months or Most Recently Relevant to Health Maintenance Insurance [id number] [place] [address] ACO [facility] ACO [id number] [place] [address] [place] [phone] [place] [address] [id number] [place] [address] [place] [phone] [place] [address] [place] [address] [phone] [place] [address] [address] [phone] [place] [address] [place] [address] [address] [facility] ACO Care Teams Termite Control Representative Relationship Specialty Start Date End Date Yi Montano MD [address] [place] [facility] [place] [address] PCP - General Internal Medicine 01/24/21 Additional Source Comments The information contained in this document represents components of the legal health record. It is not the complete legal health record.[facility]
== END 2024-11-26 09:49 | disposition home or self-care (01) ==
LOC: HO.HVS 09:25
PROVIDERS: PCP Internal Medicine; Visit Provider Surgery Vascular Surgery
DX: I83.12 Varicose veins of left lower extremity with inflammation (principal)
CPT/HCPCS: 99214

== ENCOUNTER → 2024-11-26 09:25 | Outpatient (BNVA) | payer OTHER, SELFPAY | PROVIDERS: PCP Internal Medicine; Visit Provider Surgery Vascular Surgery | DX: I83.12 Varicose veins of left lower extremity with inflammation (principal) | CPT/HCPCS: 99212 ==

== ENCOUNTER 2024-12-18 09:31 | Outpatient (AMB) | payer OTHER, SELFPAY ==
--- NOTE | 2024-12-18 09:41 | MHC.OFFVIS ---
Intake Visit Reasons: Left Leg Micro Accompanied by: Self / Same As Patient Allergies shellfish derived Allergy (Intermediate, Verified 12/18/24 09:42) Shortness of Breath/itchy throat PFSH Medical History Varicose veins of bilateral lower extremities with pain Elevated parathyroid hormone OJHN (obstructive sleep apnea) Obesity (BMI 30-39.9) Smoking Pre-diabetes COVID-19 vaccine series completed Pseudoseizures Impaired glucose tolerance Head injury BMI 50.0-59.9, adult JOHN on CPAP Thyroid nodule Condyloma acuminata Morbid obesity Mild intermittent asthma in adult without complication Acquired hypothyroidism Bipolar 1 disorder Surgical History History of esophagogastroduodenoscopy (EGD) History of repair of hiatal hernia History of sleeve gastrectomy (12/21/20) History of endometrial ablation History of suburethral sling procedure Hx of removal of cyst History of partial hysterectomy History of section History of tubal ligation Family History Father HTN (hypertension) Glaucoma Mental health disorder Psoriasis Diabetes Substance use disorder Mother Osteoporosis Kidney disease Arthritis Glaucoma Substance use disorder Mental health disorder Maternal Grandfather Mental health disorder Paternal Grandfather Mental health disorder Paternal Grandmother History of breast cancer Social History Household Members: Significant Other Housing: Apartment Are you a primary acute care clinical nurse specialist to a significant other at home: No Do you presently have visiting nurse or other home services: Yes (significant other) Alcohol intake: current Alcohol intake frequency: holidays/special occasions only Patient Tobacco Use Status: Current everyday Tobacco user Tobacco use type: Cigarette Cigarette Packs Per Day: 0.5 Cigarettes Per Day: 4 Years Smoked: 30 e-Cigarette/Vaping Use: Never Used service: No Current occupational status: disabled Sexual orientation: Straight/Heterosexual Gender identity: Female Cognitive needs: No Hearing needs: No Vision needs: Yes Office Procedures Vascular Office Procedure Details Details: Diagnosis: Left Leg varicose veins with inflammation Procedure: Left leg Microphlebectomy Anesthesia: Local Infiltration 10 cc, Tumescent: 0 cc. Varicose veins were marked in the standing position on the left leg and the patient was then placed in the supine position. The left lower extremity was prepared and draped to allow knee flexion in the sterile field. The patient had large superficial varicose veins with significant symptoms of pain. It was therefore determined to perform microphlebectomies of the clusters of varicose veins. The patient had bulging varicose veins which were previously marked in the standing position. A small stab incision was made longitudinally directly overlying the varicose vein in the calf and the varicose vein was grasped with a hemostat aided by a vein hook. It was then dissected as far proximally and distally as possible and avulsed. A total of 11 stab incisions were made and the procedure of stab phlebectomies was repeated 11 times. Hemostasis was checked and stab incision sites were closed with steri-strips and sterile dressing was given with gauze and krilex wrap followed by an kaelyn bandage. There were no complications and blood loss was minimal. Post-Op instructions were given and a follow-up appointment was recommended. 28547 - Phleb Veins, Extrem - up to 20 All charges added?: Procedure code (CPT) selection complete Assessment & Plan Assessment & Plan (1) Varicose veins of left lower extremity with inflammation: Comment: 12/18/2024 - left leg microphlebectomy Code(s): I83.12 - Varicose veins of left lower extremity with inflammation Category: Medical Plan: See op note Coding Level of Care Code Procedure Only Diagnoses Varicose veins of left lower extremity with inflammation I83.12 CPT Codes Details - Vascular 5: 23369 - Phleb Veins, Extrem - up to 20 ([id number])
--- OUTSIDE RECORDS SUMMARY | 2024-12-18 10:14 | XMS_ITS | Clinical Summary ---
Author Organization [facility] Address [address] [place] [id number] Phone Care Team Providers Care Civil Structural Engineer Name Role Phone Yi Montano MD Primary Care Provider Allergies Active Allergy Reactions Criticality Noted Date Comments Shellfish Containing Products Shortness Of Breath,Itching High 05/19/2021 Medications FREESTYLE LITE Strp strips USE TO CHECK BLOOD SUGAR DAILY 1 Active DULoxetine (CYMBALTA) 20 MG capsule 2 Active DULoxetine (CYMBALTA) 60 MG capsule 2 Active FLOVENT HFA 110 mcg/actuation inhaler 2 Active hydrOXYzine (VISTARIL) 50 MG capsule 2 Active lamoTRIgine (LAMICTAL) 100 MG IMMEDIATE release tablet 2 Active multivitamin-mine rals-lutein (CENTRUM SILVER) Tab Take 1 tablet by mouth daily. Bariatric vitamin Active calcium citrate (CALCITRATE) 950 mg (200 mg elemental) tablet Take 2 tablets by mouth daily. Active EPINEPHrine 0.3 mg/0.3 mL auto-injector Inject 0.3 mg into the muscle. 2 Active ipratropium-albut Lauren (DUONEB) 0.5-3 mg (2.5 mg base)/3 mL nebulizer solution 2 Active FREESTYLE 28 gauge lancets USE TO TEST EVERY DAY 2 Active VENTOLIN HFA 90 mcg/actuation inhaler Inhale 1 puff into the lungs as needed. 3 Active butalbital-acetam inophen-caffeine (FIORICET, ESGIC) 50-325-40 mg per tablet take 1 tablet by mouth every 8 hours as needed for 30 days 4 Active pantoprazole (PROTONIX) 40 MG tablet Take 40 mg by mouth daily. Active ergocalciferol (DRISDOL) 50,000 unit capsuleIndication s:Vitamin D deficiency TAKE 1 CAPSULE BY MOUTH ONE TIME PER WEEK 4 capsule 1 4 Active tirzepatide, weight loss, (ZEPBOUND) 12.5 mg/0.5 mL subcutaneous penIndications:Cl ass 2 obesity due to excess calories without serious comorbidity with body mass index (BMI) of 35.0 to 35.9 in adult INJECT 0.5 ML (12.5 MG TOTAL) UNDER THE SKIN EVERY 7 DAYS. 2 mL 2 5 Active tirzepatide, weight loss, (ZEPBOUND) 15 mg/0.5 mL subcutaneous pen Inject 0.5 mL (15 mg total) under the skin every 7 days. 2 mL 5 Active Active Problems Problem Noted Date Diagnosed Date [...] asked her to have it done at [facility]. She informs me that she does not [...] she has obtained a thyroid ultrasound at [facility]. Status post sleeve gastrectomy 08/22/2021 Class 2 [...] shake of 30 g of protein the [employer] protein shake at 9 AM, she should eat 2 ounces of protein with vegetables at 12 PM, she should have a Canadian yogurt or a 15 g of protein [...] have set up an appointment with our stock broker supervisor to discuss her eating habits and to [...] any creamy dressings and will only use North Korean's or vinaigrette dressing not greater than 2 [...] at the previous practice from the physician optometry assistant. I have recommended she stick to [...] Type Department Care Team Description 11/05/2024 Refill [facility] Surgical Care [address] [place] [address] [place] [address] Kayc Hernandez MD Medication Refill 10/02/2024 1:00 PM EDT Office Visit [facility] Surgical [address] [place] [address] Kacy Hernandez MD Class 2 obesity due to excess calories without serious comorbidity with body mass index (BMI) of 35.0 to 35.9 in adult (Primary Dx); Status post sleeve gastrectomy; Bariatric surgery status from Last 3 Months Immunizations Immunization Administration [...] Height 160 cm (5' 2.99 ) 10/02/2024 1:00 PM EDT Body Mass Index 35.76 10/02/2024 1:00 PM EDT Plan of Treatment Upcoming Encounters Date Type Department Care Team (Late st Contact Info) Description 12/28/2024 1:00 PM EDT Office Visit [facility] General Surgical Care [address] [place] [address] Kacy Hernandez MD 15 [facility], [address]nd [place] [address] Health Maintenance Due Date Last Done Comments DEPRESSION SCREENING 1991 SMOKING Hx and SMOKELESS TOBACCO SCREENING 10/09/1992 HEPATITIS C SCREENING 10/09/1997 HIV ONE-TIME SCREENING (18-65 YEARS) 10/09/1997 PAP SMEAR 10/09/2000 PNEUMOCOCCAL VACCINES (0-49 years) (2 of 2 - PCV) 11/28/2018 11/28/2017 MAMMOGRAM 2019 COLOGUARD 10/09/2024 COLONOSCOPY 10/09/2024 COLORECTAL CANCER SCREENING 10/09/2024 FIT TEST 10/09/2024 FOBT 10/09/2024 SIGMOIDOSCOPY 10/09/2024 VIRTUAL COLONOSCOPY 10/09/2024 INFLUENZA VACCINE (#1) 2024 , 05/03/2020, 01/19/2019, Additional history exists COVID-19 VACCINE ( season) 2024 05/09/2021, 09/28/2020, 09/07/2020 SCREENING FOR DIABETES 04/01/2027 04/01/2024, 2023 Adult Td,Tdap Booster 02/19/2029 02/19/2019, 019 LIPID PANEL 04/01/2029 04/01/2024 HEPATITIS A VACCINES [...] RISK RATIO 4.0 3.3 - 4.4 C [facility] Blood 04/01/2024 9:25 AM EST 04/01/2024 9:56 AM EST us Kacy Hernandez MD LAB BLOOD ORDERABLES Final Result [facility] [address] [place] [address] from Last 3 Months or Most Recently Relevant to Health Maintenance Insurance [facility] [place] [address] [phone] [place] [address] [id number] [place] [address] [place] [address] [phone] [place] [address] [place] [phone] [place] [address] [id number] [place] [address] [place] [phone] [place] [address] ACO [facility] ACO Care Teams Civil Structural Engineer Relationship Specialty Start Date End Date Yi Montano MD [address] [place] [address] PCP - General Internal Medicine 01/24/21 Additional Source Comments The information contained in this document represents components of the legal health record. It is not the complete legal health record.[facility]
== END 2024-12-18 10:48 | disposition home or self-care (01) ==
LOC: HO.HVS 09:32
PROVIDERS: PCP Internal Medicine; Visit Provider Surgery Vascular Surgery
DX: I83.12 Varicose veins of left lower extremity with inflammation (principal)
CPT/HCPCS: 37765

== ENCOUNTER → 2024-12-18 09:31 | Outpatient (BNVA) | payer OTHER, SELFPAY | PROVIDERS: PCP Internal Medicine; Visit Provider Surgery Vascular Surgery | DX: I83.12 Varicose veins of left lower extremity with inflammation (principal) | CPT/HCPCS: 37765 ==

== ENCOUNTER 2024-12-24 12:53 | Outpatient (AMB) | payer OTHER, SELFPAY ==
[2024-12-24 13:13] VITALS: BP 104/60; PULSE 94; RESP 16; TEMP 36.9; O2SAT 100; BMI 34.0
--- NOTE | 2024-12-24 13:13 | MHC.PC.OV ---
Vital Signs 12/24/24 13:13 Height 5 ft 3 in Weight 192 lb BMI 34.0 BP 104/60 Blood Pressure Location Rt brachial Position Sitting Respiration 16 Pulse 94 Pulse Source Pulse Oximeter Temp 98.5 F Pulse Oximetry (%) 100 Oxygen Delivery Method Room Air Intake Visit Reasons: PE Intake Note: Pt is here today for her PE: Last mammogram 08/17/24, papsmear 04/05/21 Allergies shellfish derived Allergy (Intermediate, Verified 12/24/24 13:25) Shortness of Breath/itchy throat Medication List - Last Reconciled 12/24/24 by Yi Montano MD acetaminophen (Tylenol Extra Strength) 1,000 mg (2 x 500 mg) PO Q6H PRN albuterol sulfate 90 mcg/actuation 2 puffs inhalation Q6H PRN blood sugar diagnostic (Blood Glucose Test strips) daily blood-glucose meter As directed hvubduuoxh-xuwxqhgfbttlg-cmkf 50-325-40 mg 1 tab PO DAILY PRN calcium citrate 1,000 mg PO DAILY [cane As directed] cyanocobalamin (vitamin B-12) 1,000 mcg IM Q4W diphenhydramine HCl (Benadryl) 25 mg PO TID PRN epinephrine (EpiPen 2-Olayinka) 0.3 mg (0.3 mL) IM Q15M PRN fluticasone propionate 110 mcg/actuation inhalation [grab bar for tub As directed] [hand held shower head As directed] hydrocortisone 2.5% 1 appl topical BID PRN ipratropium-albuterol 0.5 mg-3 mg(2.5 mg base)/3 mL 3 mL inhalation Q6H PRN lamotrigine 100 mg PO BID lancets (FreeStyle Lancets) Once daily emrcrrrfhozs-xbf-bocj-FA-vit K 45 mg iron- 800 mcg-120 mcg (Bariatric Multivitamins) 1 cap PO DAILY pantoprazole 40 mg PO DAILY [portable shower hose As directed] [rasied toilet seat with handles As directed] [shower chair with back and handles As directed] [shower grab bar As directed] [shower mat As directed] tirzepatide (weight loss) (Zepbound) 15 mg subcut QWEEK zolpidem 10 mg PO BEDTIME PRN Tobacco use date assessed: 12/24/24 Dental Screening Dental Screen Date: 12/24/24 Did you have a dental visit in the last 12 months?: Yes Did you have a dental problem in the last 6 months where you did not have access to dental care?: No Was dental information given to patient?: Patient has dentist ARRON SHELL HPI Details 44 year-old lady with past medical history significant for obstructive sleep apnea, obesity with history of sleeve gastrectomy done in 2020, acquired hypothyroidism, mild intermittent asthma and bipolar disorder type 1, here today for physical exam. She is up-to-date with her screening mammogram done earlier this year with benign findings, and last cervical cancer screening and pelvic exam was done with Dr. Solo in 2020 also with benign findings. Currently being seen by Dr. Tomlinson for chronic venous insufficiency with varicose veins in both lower extremities status post bilateral microphlebectomy with good results. She is still seeing Dr. Hernandez will need her sleeve gastrectomy in 2019, and is currently on Zepbound 50 mg once a week to aid in further weight loss Has bipolar disorder currently stable and controlled on lamotrigine, currently followed by Clementine Hernandez at [facility]. Prescribed zolpidem to take as needed only for acute episodes of insomnia. [facility] Medical History Family history of colon cancer in father Varicose veins of bilateral lower extremities with pain Elevated parathyroid hormone JOHN (obstructive sleep apnea) Obesity (BMI 30-39.9) Smoking Pre-diabetes COVID-19 vaccine series completed Pseudoseizures Head injury BMI 50.0-59.9, adult JOHN on CPAP Thyroid nodule Condyloma acuminata Mild intermittent asthma in adult without complication Acquired hypothyroidism Bipolar 1 disorder Surgical History History of esophagogastroduodenoscopy (EGD) History of repair of hiatal hernia History of sleeve gastrectomy (12/21/20) History of endometrial ablation History of suburethral sling procedure Hx of removal of cyst History of partial hysterectomy History of section History of tubal ligation Family History Father HTN (hypertension) Glaucoma Mental health disorder Psoriasis Diabetes Substance use disorder Mother Osteoporosis Kidney disease Arthritis Glaucoma Substance use disorder Mental health disorder Maternal Grandfather Mental health disorder Paternal Grandfather Mental health disorder Paternal Grandmother History of breast cancer Social History Household Members: Significant Other Housing: Apartment Are you a primary home care assistant to a significant other at home: No Do you presently have visiting nurse or other home services: Yes (significant other) Alcohol intake: current Alcohol intake frequency: holidays/special occasions only Patient Tobacco Use Status: Current everyday Tobacco user Tobacco use type: Cigarette Cigarette Packs Per Day: 0.5 Cigarettes Per Day: 4 Years Smoked: 30 e-Cigarette/Vaping Use: Never Used service: No Current occupational status: disabled Sexual orientation: Straight/Heterosexual Gender identity: Female Cognitive needs: No Hearing needs: No Vision needs: Yes Questionnaire PHQ-9 Over the last 2 weeks, how often have you been bothered by any of the following problems? 1. Little interest or pleasure in doing things: several days 2. Feeling down, depressed, or hopeless: not at all 3. Trouble falling or staying asleep, or sleeping too much: more than half the days 4. Feeling tired or having little energy: several days 5. Poor appetite or overeating: several days 6. Feeling bad about yourself - or that you are a failure or have let yourself or your family down: several days 7. Trouble concentrating on things, such as reading the newspaper or watching television: several days 8. Moving or speaking so slowly that other people could have noticed. Or the opposite - being so fidgety or restless that you have been moving around a lot more than usual: not at all 9. Thoughts that you would be better off or of hurting yourself in some way: not at all Total score: 7 Depression Screening Interpretation: Negative (Currently being seen at [facility] for bipolar disorder, med prescriber is ) Depression Screening Done: Yes 42128 - PHQ-9 Billing: Yes Source: Developed by Drs. Sai Duffy, Kasey Sparks, Shahid Brenner and colleagues, with an educational markus from [employer]. Thrive Questionnaire Date Thrive assessed: 12/24/24 I am a: Patient What is your living situation today?: I have a steady place to live Within the past 12 months, did the food you bought not last and you didn't have the money to get more?: Sometimes True Within the past 12 months, did you worry whether your food would run out before you got money to buy more?: Sometimes True Do you have trouble paying for medicines?: No Do you have trouble getting transportation to medical appointments?: No Do you have trouble paying your heating and electricity bill?: No Do you have trouble taking care of your child, family member or friend?: No Do you have trouble with day-to-day activities such as bathing, preparing meals, shopping, managing finances, etc.?: Yes Are you currently unemployed and looking for a job?: No Are you interested in more education?: No Please select the resources that you would like help with: None Currently or been in a relationship where the following occur: No concerns reported THRIVE Score: 2 AUDIT C Alcohol Use Questionnaire (AUDIT-C) 1. How often do you have a drink containing alcohol?: Never 3. How often do you have six or more drinks on one occasion?: Never Total Score: 0 Score Reviewed/Action Taken: Yes ADALID-7 AMB Questionnaire ADALID-7 Date ADALID - 7 assessed: 12/24/24 Feeling nervous, anxious, or on edge: 1 = Several days Not being able to stop or control worryin = Several days Worrying too much about different things: 1 = Several days Trouble relaxin = Not at all Being so restless that it is hard to sit still: 0 = Not at all Becoming easily annoyed or irritable: 1 = Several days Feeling afraid as if something awful might happen: 0 = Not at all Total ADALID-7 score (0-4 normal; 5-9 mild; 10-14 moderate; 15-21 severe): 4 Source: Developed by Drs. Sai Duffy, Kasey Sparks, Shahid Brenner and colleagues, with an educational markus from [employer]. ADALID-7 Assessment Billing ADALID-7 Assessment Tool: ADALID-7 Assessment 18850 (followed by psychiatry) Review of Systems Const Reports no additional complaints Eyes Denies change in vision ENT Reports no additional complaints Card Denies chest pain, Denies chest pain at rest and Denies chest pain with activity Resp Denies chest congestion and Denies cough GI Reports no additional complaints Reports no additional complaints Musc Details: pain over varicosities, aching of lower extremities, swelling, cramping, heaviness and tiredness, itching Denies abnormal gait Skin/Breast Reports pruritus and Denies wounds Neuro Reports no additional complaints and Denies abnormal gait Psych Denies no additional complaints Endo Reports no additional complaints Inder/Lymph Reports no additional complaints Aller/Immun Reports no additional complaints Physical exam (Primary Care) Vital Signs: Last Vital Signs Temp 98.5 F 12/24/24 13:13 Pulse 94 12/24/24 13:13 Resp 16 12/24/24 13:13 BP 104/60 12/24/24 13:13 Pulse Ox 100 12/24/24 13:13 Oxygen Delivery Method Room Air 12/24/24 13:13 BMI result Body Mass Index 34.0 BMI Assessment/Plan discussion: High BMI High, discussed plan: dietary and physical activity Tobacco/Smoking Status: Tobacco use Status Tobacco use date assessed 12/24/24 12/24/24 13:15 Patient Tobacco Use Status Current everyday Tobacco 12/24/24 13:15 Tobacco use type Cigarette 12/24/24 13:15 e-Cigarette/Vaping Use Never Used 12/24/24 13:15 Are you ready to quit: No Tobacco cessation counseling provided: Yes PHQ-9: PHQ-9 Score PHQ-9: Total score 7 12/24/24 13:51 Depression Screening Interpretation: Negative (Currently being seen at [facility] for bipolar disorder, med prescriber is ) Thrive Assessment: Date of Thrive Assessment Date Thrive assessed 12/24/24 12/24/24 13:15 Currently or been in a relationship where the following occur: No concerns reported Const Orientation/consciousness: patient oriented x3 HENMT Mouth: oropharynx normal and moist mucous membranes Eyes General: appearance normal, both eyes and all related structures Neck Other: Nonpalpable thyroid gland Neck: Yes full ROM, Yes no lymphadenopathy and Yes supple Chest Chest palpation & inspection: normal inspection of the chest Breast/axilla palpation: normal palpation of the breasts Resp Auscultation: clear to auscultation bilaterally Cardio Other: S1-S2 present with regular rate and rhythm Peripheral pulses: Peripheral pulses 2+ throughout GI Inspection: Yes obesity Palpation (GI): Soft to palpation, nontender, no guarding and no masses Auscultation: normal bowel sounds General: Yes no CVA tenderness and Yes deferred (Currently being seen by OBGYN her Pap and pelvic exam) Back/Spine/Pelvis Back: no CVA tenderness and No back tenderness Skin Other: Varicose veins noted bilateral extending from thigh to ankle in some areas thrombosed Neuro General: patient oriented x3, gait normal, tone normal, moves all extremities, Normal light touch and pain sensation, no focal motor deficits and CN's II-XI intact bilaterally Extrem General: Yes full ROM, Yes no joint enlargement, Yes no pedal edema, Yes no calf tenderness and Yes normal gait Psych Appearance: grossly normal Mental Status: mental status grossly normal Speech and movement: Normal speech and movement present Affect: normal affect Coding Level of Care Code Est Pt Prev Care 40-64y(12611) Diagnoses Annual visit for general adult medical examination with abnormal findings Z. Dyslipidemia E78.5 Encounter for screening for malignant neoplasm of colon Z12.11 Acquired hypothyroidism E03.9 Obesity (BMI 30-39.9) E66.9 Bipolar 1 disorder F31.9 Varicose veins of bilateral lower extremities with pain I83.813 Additional Codes ADALID-7 Assessment Billing - ADALID-7 Assessment Tool: ADALID-7 Assessment 10432 ([id number]) PHQ-9 - 28638 - PHQ-9 Billing: Yes ([id number]) Assessment & Plan Assessment & Plan (1) Annual visit for general adult medical examination with abnormal findings: Code(s): Z00. - Encounter for general adult medical examination with abnormal findings Plan: Will check appropriate labs. Recommended dental visit every 6 months and regular eye exams, at least every 2 years. Take adequate calcium in diet and vitamin-D 3 at 2000 IU per cap once a day, in addition to weight-bearing exercises to help maintain good muscle tone and weight control. Up-to-date with her screening mammogram and cervical cancer screening done by Dr. Solo . Referred to GI for screening colonoscopy (2) Dyslipidemia: Code(s): E78.5 - Hyperlipidemia, unspecified Plan: Fasting lipid panel ordered. Reinforced importance of adhering to a low-cholesterol diet and getting regular exercise. (3) Encounter for screening for malignant neoplasm of colon: Code(s): Z12.11 - Encounter for screening for malignant neoplasm of colon Plan: Referred to GI Clinic for her screening colonoscopy, has positive family history of colon cancer, father (4) Acquired hypothyroidism: Comment: Currently not on thyroid medicines Code(s): E03.9 - Hypothyroidism, unspecified Category: Medical Plan: Latest thyroid levels are within normal limits not on any thyroid supplement (5) Obesity (BMI 30-39.9): Comment: Patient had previous history of gastric Sleeve. Has regained lot of weight . ADVISE THAT SHE SHOULD REMAIN ACTIVE IN WEIGHT MANAGEMENT PROGRAM, AND MAY NEED TO HAVE .GASTRIC SLEEVE REVISED Code(s): E66.9 - Obesity, unspecified Category: Medical Plan: Currently followed by Dr. Hernandez who has been prescribing her toes appetite for weight loss (6) Bipolar 1 disorder: Comment: sees therapist and clementine hernandez (psych) in [facility] Code(s): F31.9 - Bipolar disorder, unspecified Category: Medical Plan: Followed by psychiatry (7) Varicose veins of bilateral lower extremities with pain: Code(s): I83.813 - Varicose veins of bilateral lower extremities with pain Category: Medical Plan: followed by Dr Tomlinson Orders: Orders Vitamin D 25-OH Total 12/24/24 E78.5 - Hyperlipidemia, unspecified, E53.8 - Deficiency of other specified B group vitamins Vitamin B12 and Folate 12/24/24 E78.5 - Hyperlipidemia, unspecified, E53.8 - Deficiency of other specified B group vitamins Lipid Panel 12/24/24 E78.5 - Hyperlipidemia, unspecified, E53.8 - Deficiency of other specified B group vitamins Referrals Gastroenterology Referral Z12.11 - Encounter for screening for malignant neoplasm of colon, Z80.0 - Family history of malignant neoplasm of digestive organs Medications: New tirzepatide (weight loss) (Zepbound) 15 mg subcut QWEEK
--- OUTSIDE RECORDS SUMMARY | 2024-12-24 17:02 | XMS_ITS | Clinical Summary ---
Author Organization [facility] Address [address] [facility] [address] [place], [place] [id number] Phone Care Team Providers Care Shopper Marketing Manager Name Role Phone Yi Montano MD Primary [...] asked her to have it done at [facility]. She informs me that she does [...] she has obtained a thyroid ultrasound at [facility]. Status post sleeve gastrectomy 08/22/2021 Class [...] at 12 PM, she should have a Guinean yogurt or a 15 g of protein [...] have set up an appointment with our core layer machine operator to discuss her eating habits and to [...] any creamy dressings and will only use Hungarian's or vinaigrette dressing not greater than 2 [...] at the previous practice from the physician human resources assistant manager. I have recommended she stick to proteins [...] Type Department Care Team Description 11/05/2024 Refill [facility] [address] [place] [address] [place] [address] Kacy Hernandez MD Medication Refill 10/02/2024 1:00 PM EDT Office Visit [facility] [address] [place] [address] Kacy Hernandez MD Class 2 obesity due [...] Description 12/28/2024 1:00 PM EDT Office Visit [facility] [address] [place] [address] Kacy Hernandez MD [address] [facility], 2nd [place] [address] Health Maintenance Due Date Last Done Comments [...] (04/01/2024 9:25 AM EST) HDL 61 mg/dL [facility] Comment: Interpretation <40 mg/dL: Low HDL cholesterol (major risk factor for CHD) Greater than or equal to 60 mg/dL: High HDL cholesterol ( negative risk factor for CHD) HDL - cholesterol is affected by a number of factors, e.g. smoking, excerise, hormones, sex and age. CHOLESTEROL 245(H) 0 - 240 mg/dL [facility] TRIGLYCERIDES 87 30 - 160 mg/dL [facility] LDL 167(H) 50 - 129 mg/dL [facility] Comment: LDL levels in terms of risk for coronary heart disease: <100 mg/dL: Optimal 100-129 mg/dL: Near or above optimal 130-159 mg/dL: Borderline high 160-189 mg/dL: High >190 mg/dL: Very High CARDIAC RISK RATIO 4.0 3.3 - 4.4 C [facility] Blood 04/01/2024 9:25 AM EST 04/01/2024 9:56 AM EST us Kacy Hernandez MD LAB BLOOD ORDERABLES Final Result [facility] [address] [place] [address] from Last 3 Months or Most Recently Relevant to Health Maintenance Insurance [facility] ACO [facility] [place] [phone] [place] [address] [id number] [place] [address] [place] [phone] [place] [address] [place] [phone] [place] [address] [id number] [place] [address] [place] [phone] [place] [address] ACO [facility] ACO Care Teams Shopper Marketing Manager Relationship Specialty Start Date End Date Yi Montano MD [address] [place] [address] PCP - General Internal Medicine 01/24/21 Additional Source Comments The information contained in this document represents components of the legal health record. It is not the complete legal health record.[facility]
== END 2024-12-24 13:52 | disposition home or self-care (01) ==
LOC: HO.HMCC 12:54
PROVIDERS: PCP Internal Medicine; Visit Provider Internal Medicine
DX: Z00.00 Encounter for general adult medical examination without abnormal findings (principal); F31.9 Bipolar disorder, unspecified; E66.9 Obesity, unspecified; Z68.34 Body mass index [BMI] 34.0-34.9, adult; E78.5 Hyperlipidemia, unspecified; Z12.11 Encounter for screening for malignant neoplasm of colon; E03.9 Hypothyroidism, unspecified; I83.813 Varicose veins of bilateral lower extremities with pain

== ENCOUNTER → 2024-12-24 12:53 | Outpatient (BNVA) | payer OTHER, SELFPAY | PROVIDERS: PCP Internal Medicine; Visit Provider Internal Medicine | DX: Z00.01 Encounter for general adult medical examination with abnormal findings (principal); E78.5 Hyperlipidemia, unspecified; E03.9 Hypothyroidism, unspecified; E66.9 Obesity, unspecified; Z68.34 Body mass index [BMI] 34.0-34.9, adult; F31.9 Bipolar disorder, unspecified; I83.813 Varicose veins of bilateral lower extremities with pain; G47.33 Obstructive sleep apnea (adult) (pediatric); Z98.84 Bariatric surgery status; Z13.31 Encounter for screening for depression; Z13.39 Encounter for screening examination for other mental health and behavioral disorders | CPT/HCPCS: 96127; 99396 ==

== ENCOUNTER 2025-01-07 13:46 | Outpatient (AMB) | payer OTHER, SELFPAY ==
--- NOTE | 2025-01-07 13:47 | A.OFFVIS_ITS ---
Intake Visit Reasons: 3 week follow up s/p left leg micro Intake Note: Patient presents for follow up left leg micro. Patient has no complaint. Accompanied by: Self / Same As Patient Allergies shellfish derived Allergy (Intermediate, Verified 01/07/25 13:49) Shortness of Breath/itchy throat HPI HPI 3 week follow up s/p left leg micro: Details: Very pleasant 44-year-old female presents for follow-up status post left leg microphlebectomy. She has previously undergone right leg microphlebectomy. She has noticed an increase in her varicosities after her gastric bypass but appears to be doing significantly better after her procedures. She now presents for routine postprocedure follow-up. [facility] Medical History Family history of colon cancer in father Varicose veins of bilateral lower extremities with pain Elevated parathyroid hormone JOHN (obstructive sleep apnea) Obesity (BMI 30-39.9) Smoking Pre-diabetes COVID-19 vaccine series completed Pseudoseizures Head injury BMI 50.0-59.9, adult JOHN on CPAP Thyroid nodule Condyloma acuminata Mild intermittent asthma in adult without complication Acquired hypothyroidism Bipolar 1 disorder Surgical History History of esophagogastroduodenoscopy (EGD) History of repair of hiatal hernia History of sleeve gastrectomy (12/21/20) History of endometrial ablation History of suburethral sling procedure Hx of removal of cyst History of partial hysterectomy History of section History of tubal ligation Family History Father HTN (hypertension) Glaucoma Mental health disorder Psoriasis Diabetes Substance use disorder Mother Osteoporosis Kidney disease Arthritis Glaucoma Substance use disorder Mental health disorder Maternal Grandfather Mental health disorder Paternal Grandfather Mental health disorder Paternal Grandmother History of breast cancer Social History Household Members: Significant Other Housing: Apartment Are you a primary home care assistant to a significant other at home: No Do you presently have visiting nurse or other home services: Yes (significant other) Alcohol intake: current Alcohol intake frequency: holidays/special occasions only Patient Tobacco Use Status: Current everyday Tobacco user Tobacco use type: Cigarette Cigarette Packs Per Day: 0.5 Cigarettes Per Day: 4 Years Smoked: 30 e-Cigarette/Vaping Use: Never Used service: No Current occupational status: disabled Sexual orientation: Straight/Heterosexual Gender identity: Female Cognitive needs: No Hearing needs: No Vision needs: Yes Review of Systems Const All systems reviewed & are unremarkable except as noted in HPI and below Reports as per HPI ENT Reports no additional complaints and Reports Normal hearing present Card Denies chest pain, Denies chest pain at rest and Denies chest pain with activity Resp Denies chest congestion and Denies cough GI Reports no additional complaints Musc Details: pain over varicosities, aching of lower extremities, swelling, cramping, heaviness and tiredness, itching Denies abnormal gait Skin/Breast Reports pruritus and Denies wounds Neuro Reports no additional complaints, Reports Normal hearing present and Denies abnormal gait Psych Denies no additional complaints Physical Exam Const General: cooperative, healthy appearing and comfortable Orientation/consciousness: oriented to person, oriented to place and oriented to time HEENT Head: Yes normal to inspection Neck Neck: Yes normal visual inspection Carotids: no bruits Chest Chest palpation & inspection: normal inspection of the chest and normal palpation of entire chest wall Resp Effort & Inspection: normal respiratory effort and able to speak in complete sentences Auscultation: clear to auscultation bilaterally, no crackles, no rales, no rhonchi and no wheezes Cardio Rate: regular rate Rhythm: regular rhythm Heart sounds: S1 normal heart sound present and S2 normal heart sound present Bruits: no carotid bruits Peripheral pulses: Peripheral pulses 2+ throughout GI Inspection: Yes normal to inspection Skin Other: +2 edema, large rope-like varicosities greater than 4 mm CEAP Classification C4 - skin color changes Ep - Etiology Primary As - superficial veins P - reflux General skin exam: dry skin Wounds: no wounds Hair: normal Neuro General: oriented to person, oriented to place and oriented to time Cranial nerves: Yes CN's II-XII intact bilaterally and Yes Normal hearing present Cognition (Neuro): normal cognition Motor exam (neuro): 5/5 motor strength present throughout Extrem Other: venous exam: No significant superficial varicosities or spider telangiectasias, minimal edema General: No clubbing, No cyanosis and No edema Right lower extremity: full ROM, normal capillary refill and edema Left lower extremity: full ROM, normal capillary refill and edema Psych Appearance: grossly normal Mental Status: mental status grossly normal Speech and movement: Normal speech and movement present Assessment & Plan Assessment & Plan (1) Varicose veins of right lower extremity with inflammation: Comment: 11/13/2024 - right leg microphlebectomy Code(s): I83.11 - Varicose veins of right lower extremity with inflammation Category: Medical Plan: See below (2) Varicose veins of left lower extremity with inflammation: Comment: 12/18/2024 - left leg microphlebectomy Code(s): I83.12 - Varicose veins of left lower extremity with inflammation Category: Medical Plan: The patient has done extremely well with all venous treatments. Patient's may often experience postprocedure phlebitic episodes and I have discussed with the patient use of warm compresses and NSAIDS if tolerated for pain discomfort. In addition, I have discussed continued conservative measures including use of compression, leg elevation, and exercise. The patient was also given an information sheet regarding appropriate use of compression stockings and future purchases. I have requested that she follow-up in 6 months to reassess if any additional microphlebectomy he is required. Thank you for allowing us to care for your patient with venous disease. Coding Level of Care Code Est Pt Level 3 (60919) Diagnoses Varicose veins of right lower extremity with inflammation I83.11 Varicose veins of left lower extremity with inflammation I83.12
--- OUTSIDE RECORDS SUMMARY | 2025-01-07 18:19 | XMS_ITS | Encounter Summary ---
Author Organization [employer] [facility] Address [address] [place] [address] Phone Care Team Providers Care Stage Set Designer Name Role Phone Yi Montano MD Primary Care Provider Reason for Visit * Reason Onset Date Comments Reschedule 12/29/2024 Encounter Details Date Type Department Care Team (Late st Contact Info) Description 12/29/2024 Telephone [facility] General Surgical Care [address] [place] [address] Kacy Hernandez MD [address] [facility], 2nd [place] [address] [email or web address] Reschedule Social History Tobacco Use Types Packs/Day Years Used Date Smoking Tobacco: Every Day Cigarettes Smokeless Tobacco: Never Alcohol Use Standard Drinks/Week Comments Not Currently [...] Orientation Straight 05/15/2021 3: 07 PM EST documented as of this encounter Progress Notes * Shantal Díaz - 12/30/2024 10:04 AM EDT R/S for 01/19 * Tricia Hart - 12/29/2024 12:53 PM EDT Pt lvm on 12/28 requesting a call back to reschedule appt with . CSS Agent (Please do not reply to this user, as this inbox is not monitored. Thank you.) Thank you. documented in this encounter Plan of Treatment Upcoming Encounters Date Type Department Care Team (Late st Contact Info) Description 01/19/2025 2:30 PM EDT Office Visit [facility] General Surgical Care [address] [place] [address] Kacy Hernandez MD [address] [facility], 2nd [place] [address] [email or web address] documented as of this encounter Visit Diagnoses Not on filedocumented in this encounter Care Teams Stage Set Designer Relationship Specialty Start Date End Date Yi Montano MD [facility] [place] [address] PCP - General Internal Medicine 01/24/21 documented as of this encounter Additional Source Comments The information contained in this document represents components of the legal health record. It is not the complete legal health record.[facility]
--- OUTSIDE RECORDS SUMMARY | 2025-01-07 18:19 | XMS_ITS | Clinical Summary ---
Author Organization [facility] Address [address] [place], [place] [id number] Phone Care Team Providers Care Manager Of Drilling Name Role Phone Yi Montano MD Primary [...] asked her to have it done at [facility]. She informs me that she does [...] she has obtained a thyroid ultrasound at [facility]. Status post sleeve gastrectomy 08/22/2021 Class [...] at 12 PM, she should have a Polish yogurt or a 15 g of protein [...] have set up an appointment with our bronzer to discuss her eating habits and to [...] any creamy dressings and will only use Kyrgyz's or vinaigrette dressing not greater than 2 [...] at the previous practice from the physician events and promotions assistant. I have recommended she stick to [...] Encounters Date Type Department Care Team Description 12/29/2024 Telephone [facility] General Surgical Care [address] [place] [address] Kacy Hernandez MD Reschedule 11/05/2024 Refill [facility] Surgical Care [address] [place] [address] Kacy Hernandez MD Medication Refill from Last [...] Description 01/19/2025 2:30 PM EDT Office Visit [facility] General Surgical Care [address] [place] [address] Kacy Hernandez MD 15 [facility], [address] [place] [address] [email or web address] Health Maintenance Due Date Last Done Comments [...] (04/01/2024 9:25 AM EST) HDL 61 mg/dL [facility] Comment: Interpretation <40 mg/dL: Low HDL cholesterol (major risk factor for CHD) Greater than or equal to 60 mg/dL: High HDL cholesterol ( negative risk factor for CHD) HDL - cholesterol is affected by a number of factors, e.g. smoking, excerise, hormones, sex and age. CHOLESTEROL 245(H) 0 - 240 mg/dL [facility] TRIGLYCERIDES 87 30 - 160 mg/dL [facility] LDL 167(H) 50 - 129 mg/dL [facility] Comment: LDL levels in terms of risk for coronary heart disease: <100 mg/dL: Optimal 100-129 mg/dL: Near or above optimal 130-159 mg/dL: Borderline high 160-189 mg/dL: High >190 mg/dL: Very High CARDIAC RISK RATIO 4.0 3.3 - 4.4 C [facility] Blood 04/01/2024 9:25 AM EST 04/01/2024 9:56 AM EST us Kacy Hernandez MD LAB BLOOD ORDERABLES Final Result Performing Organization Address City/State/[facility] Co de Phone Number [address] [address] from Last 3 Months or Most Recently Relevant to Health Maintenance [place] [phone] [place] [address] [place] [phone] [place] [address] ACO * Guarantor: Keira Galdamez Account Type Relation to Patient Date of Phone Billing Address Personal/Family Self 1980 [address] [facility] [address] [place] [address] [facility] A[facility] [id number] [place] [address] ACO [facility] [id number] [place] [address] [address] [id number] [place] [address] [id number] [place] [address] [place] [address] [address] [facility] Care Teams Manager Of Drilling Relationship Specialty Start Date End Date Yi Montano MD [facility] [place] [address] PCP - General Internal Medicine 01/24/21 Additional Source Comments The information contained in this document represents components of the legal health record. It is not the complete legal health record.[facility]
== END 2025-01-07 14:16 | disposition home or self-care (01) ==
LOC: HO.HVS 13:47
PROVIDERS: PCP Internal Medicine; Visit Provider Surgery Vascular Surgery
DX: I83.11 Varicose veins of right lower extremity with inflammation (principal); I83.12 Varicose veins of left lower extremity with inflammation
CPT/HCPCS: 99213

== ENCOUNTER → 2025-01-07 13:46 | Outpatient (BNVA) | payer OTHER, SELFPAY | PROVIDERS: PCP Internal Medicine; Visit Provider Surgery Vascular Surgery | DX: I83.11 Varicose veins of right lower extremity with inflammation (principal); I83.12 Varicose veins of left lower extremity with inflammation | CPT/HCPCS: 99212 ==

== ENCOUNTER 2025-02-04 08:32 | Outpatient (REF) | payer OTHER, SELFPAY ==
--- OUTSIDE RECORDS SUMMARY | 2025-02-04 09:01 | XMS_ITS | Clinical Summary ---
Author Organization [facility] Address [address] [place] [address] Phone Care Team Providers Care Extractor Machine Operator Name Role Phone Yi Montano MD Primary [...] 100 MG IMMEDIATE release tablet 2 Active multivitamin-min erals-lutein (CENTRUM SILVER) Tab Take 1 tablet by mouth daily. Bariatric vitamin Active calcium citrate (CALCITRATE) 950 mg (200 mg elemental) tablet Take 2 tablets by mouth daily. Active EPINEPHrine 0.3 mg/0.3 mL auto-injector Inject 0.3 mg into the muscle. 2 Active ipratropium-albu teroL (DUONEB) 0.5-3 mg (2.5 mg base)/3 mL nebulizer solution 2 Active FREESTYLE 28 gauge lancets USE TO TEST EVERY DAY 2 Active VENTOLIN HFA 90 mcg/actuation inhaler Inhale 1 puff into the lungs as needed. 3 Active butalbital-aceta minophen-caffein e (FIORICET, ESGIC) 50-325-40 mg per tablet take 1 tablet by mouth every 8 hours as needed for 30 days 4 Active pantoprazole (PROTONIX) 40 MG tablet Take 40 mg by mouth daily. Active ergocalciferol (DRISDOL) 50,000 unit capsuleIndicatio ns:Vitamin D deficiency TAKE 1 CAPSULE BY MOUTH ONE TIME PER WEEK 4 capsule 1 4 Active tirzepatide, weight loss, (ZEPBOUND) 15 mg/0.5 mL subcutaneous penIndications:C lass 1 obesity due to excess calories without serious comorbidity with body mass index (BMI) of 33.0 to 33.9 in adult Inject 0.5 mL (15 mg total) under the skin every 7 days. 2 mL 5 Active tirzepatide, weight loss, (ZEPBOUND) 12.5 mg/0.5 mL subcutaneous penIndications:C lass 2 obesity due to excess calories without serious comorbidity with body mass index (BMI) of 35.0 to 35.9 in adult INJECT 0.5 ML (12.5 MG TOTAL) UNDER THE SKIN EVERY 7 DAYS. 2 mL 2 5 01/20/20 25 Discontin ued(No longer taking) tirzepatide, weight loss, (ZEPBOUND) 15 mg/0.5 mL subcutaneous pen Inject 0.5 mL (15 mg total) under the skin every 7 days. 2 mL 5 01/20/20 25 Discontin ued(Reord er) Active Problems Problem Noted Date Diagnosed Date [...] asked her to have it done at [facility]. She informs me that she does [...] she has obtained a thyroid ultrasound at [facility]. Status post sleeve gastrectomy 08/22/2021 Class 1 obesity due to exces s calories without serious comorbidity with body mass index (BMI) of 33.0 to 33.9 in adult 08/22/2021 Assessment & Plan (01/19/2025 2:51 PM EDT): This is a 44-year-old woman who is achieving renewed weight loss using Zepbound. She is on highest dose but has not picked up the prescription yet as she needed to have an appointment to obtain prior authorization. Patient recently had vein stripped and will need to start formalized exercise once cleared. She will continue current eating plan and water intake. She will continue current medications as reviewed. She is not stable and is considered obese. She will continue following up with our medical weight loss program. She should follow-up with our nurse practitioner in 3 months timeframe. Assessment & Plan (10/02/2024 1:34 PM EDT): [...] at 12 PM, she should have a Arabic yogurt or a 15 g of protein [...] have set up an appointment with our library media assistant to discuss her eating habits and to [...] any creamy dressings and will only use Malay's or vinaigrette dressing not greater than 2 [...] at the previous practice from the physician social research assistant. I have recommended she stick to [...] Encounters Date Type Department Care Team Description 01/19/2025 2:30 PM EDT Office Visit [facility] General Surgical Care [address] [place] [address] Kacy Hernandez MD Class 1 obesity due to excess calories without serious comorbidity with body mass index (BMI) of 33.0 to 33.9 in adult (Primary Dx); Status post sleeve gastrectomy; Bariatric surgery status 01/11/2025 Refill [facility] General Surgical Care [address] [place] [address] Kacy Hernandez MD Medication Refill 12/29/2024 Telephone [facility] Surgical Care [address] [place] [address] Kacy Hernandez MD Reschedule 11/05/2024 Refill [facility] General Surgical Care [address] [place] [address] Kacy Hernandez MD Medication Refill from Last [...] Sign Reading Time Taken Comments Blood Pressure 118/62 01/19/2025 2:31 PM EDT Pulse 79 01/19/2025 2:31 PM EDT Temperature 36.7 C (98 F) 01/19/2025 2:31 PM EDT Respiratory Rate - - Oxygen Saturation 98% 01/19/2025 2:31 PM EDT Inhaled Oxygen Concentration - - Weight 86.4 kg (190 lb 6.4 oz) 01/19/2025 2:31 P M EDT Height 160 cm (5' 3 ) 01/19/2025 2:31 PM EDT Body Mass Index 33.73 01/19/2025 2:31 PM EDT Plan of Treatment Upcoming Encounters Date Type Department Care Team (Late st Contact Info) Description 05/05/2025 10:45 AM EST Office Visit [facility] General Surgical Care [address] [place] [address] Elva Ga, SLING OPERATOR [address] [facility], [address] [place] [address] [email or web address] Health Maintenance Due Date Last Done Comments [...] (04/01/2024 9:25 AM EST) HDL 61 mg/dL [facility] Comment: Interpretation <40 mg/dL: Low HDL cholesterol (major risk factor for CHD) Greater than or equal to 60 mg/dL: High HDL cholesterol ( negative risk factor for CHD) HDL - cholesterol is affected by a number of factors, e.g. smoking, excerise, hormones, sex and age. CHOLESTEROL 245(H) 0 - 240 mg/dL [facility] TRIGLYCERIDES 87 30 - 160 mg/dL [facility] LDL 167(H) 50 - 129 mg/dL [facility] Comment: LDL levels in terms of risk for coronary heart disease: <100 mg/dL: Optimal 100-129 mg/dL: Near or above optimal 130-159 mg/dL: Borderline high 160-189 mg/dL: High >190 mg/dL: Very High CARDIAC RISK RATIO 4.0 3.3 - 4.4 C [facility] Blood 04/01/2024 9:25 AM EST 04/01/2024 9:56 AM EST us Kacy Hernandez MD LAB BLOOD ORDERABLES Final Result [address] [address] from Last 3 Months or Most Recently Relevant to Health Maintenance Insurance [id number] [place] [address] [address] [id number] [id number] [place] [address] [place] [phone] [place] [address] [address] [id number] [place] [address] [place] [phone] [place] [address] [place] [phone] [place] [address] [id number] [place] [address] [place] [phone] [place] [address] ACO Care Teams Extractor Machine Operator Relationship Specialty Start Date End Date Yi Montano MD [facility] [address] PCP - General Internal Medicine 01/24/21 Additional Source Comments The information contained in this document represents components of the legal health record. It is not the complete legal health record.[facility]
--- OUTSIDE RECORDS SUMMARY | 2025-02-04 09:01 | XMS_ITS | Encounter Summary ---
Author Organization [facility] Address [address] [place] [address] Phone Care Team Providers Care Peace Officer Name Role Phone Yi Montano MD Primary Care Provider Reason for Visit * Reason Onset Date Comments Reschedule 12/29/2024 Encounter Details Date Type Department Care Team (Late st Contact Info) Description 12/29/2024 Telephone [facility] General Surgical Care [address] [place] [address] Kacy Hernandez MD 15 [facility], 2nd [place] [address] [email or web address] Reschedule Social History Tobacco Use Types Packs/Day [...] Description 05/05/2025 10:45 AM EST Office Visit [facility] General Surgical Care [address] [place] [address] Elva Ga, CUPOLA CHARGER [address] [facility], 2nd [place] [address] documented as of this encounter Visit Diagnoses Not on filedocumented in this encounter Care Teams Peace Officer Relationship Specialty Start Date End Date Yi Montano MD [address] [facility] [place] [address] PCP - General Internal Medicine 01/24/21 documented as of this encounter Additional Source Comments The information contained in this document represents components of the legal health record. It is not the complete legal health record.[facility]
--- OUTSIDE RECORDS SUMMARY | 2025-02-04 09:01 | XMS_ITS | Encounter Summary ---
Author Organization [facility] Address [address] [facility] [address] [place] [address] Phone Care Team Providers Care Dowel Pointer Name Role Phone Yi Montano MD Primary Care Provider Reason for Visit * Reason Comments Medication Refill Encounter Details Date Type Department Care Team (Late st Contact Info) Description 01/11/2025 Refill [facility] General Surgical Care [address] [place] [address] [place] [address] Kacy Hernandez MD [address] [facility], 2nd [place] [address] [email or web address] Medication Refill Social History Tobacco Use Types Packs/Day Years [...] PM EST documented as of this encounter Plan of Treatment Upcoming Encounters Date Type Department Care Team (Late st Contact Info) Description 05/05/2025 10:45 AM EST Office Visit [facility] General Surgical Care [address] [place] [address] Elva Ga, HYDROLOGIC MODELER [address] [facility], 2nd [place] [address] [email or web address] documented as of this encounter Visit Diagnoses Not on filedocumented in this encounter Care Teams Dowel Pointer Relationship Specialty Start Date End Date Yi Montano MD [facility] [place] [address] PCP - General Internal Medicine 01/24/21 documented as of this encounter Additional Source Comments The information contained in this document represents components of the legal health record. It is not the complete legal health record.[facility]
[2025-02-04 09:47] LABS: Cholesterol 167 mg/dL (<200); HDL Cholesterol 41 mg/dL (>40); Triglycerides 65 mg/dL (<150)
[2025-02-04 10:08] LABS: Folate 4.2 ng/mL (> or = 4.0); Vitamin B12 182 pg/mL (200-900)
== END 2025-02-04 08:33 | disposition home or self-care (01) ==
LOC: HO.LAB 08:32
PROVIDERS: PCP Internal Medicine; Visit Provider Internal Medicine
DX: E53.8 Deficiency of other specified B group vitamins (principal); E78.5 Hyperlipidemia, unspecified
CPT/HCPCS: 36415; 80061; 82306; 82607; 82746

== ENCOUNTER 2025-03-03 13:37 | Outpatient (AMB) | payer OTHER, SELFPAY ==
--- NOTE | 2025-03-03 13:43 | A.OFFVIS_ITS ---
Intake Visit Reasons: vent monitor results Allergies shellfish derived Allergy (Intermediate, Verified 01/07/25 13:49) Shortness of Breath/itchy throat Medication List - Last Reconciled 03/03/25 by Luis Guevara MD acetaminophen (Tylenol Extra Strength) 1,000 mg (2 x 500 mg) PO Q6H PRN albuterol sulfate 90 mcg/actuation 2 puffs inhalation Q6H PRN blood sugar diagnostic (Blood Glucose Test strips) daily blood-glucose meter As directed zffzkvrszx-btnroclnbkpay-evbx 50-325-40 mg 1 tab PO DAILY PRN calcium citrate 1,000 mg PO DAILY [cane As directed] cyanocobalamin (vitamin B-12) 1,000 mcg IM Q4W diphenhydramine HCl (Benadryl) 25 mg PO TID PRN epinephrine (EpiPen 2-Olayinka) 0.3 mg (0.3 mL) IM Q15M PRN fluticasone propionate 110 mcg/actuation inhalation [grab bar for tub As directed] [hand held shower head As directed] hydrocortisone 2.5% 1 appl topical BID PRN ipratropium-albuterol 0.5 mg-3 mg(2.5 mg base)/3 mL 3 mL inhalation Q6H PRN lamotrigine 100 mg PO BID lancets (FreeStyle Lancets) Once daily npvfiusjqcsl-fzg-ouur-FA-vit K 45 mg iron- 800 mcg-120 mcg (Bariatric Multivitamins) 1 cap PO DAILY pantoprazole 40 mg PO DAILY [portable shower hose As directed] [rasied toilet seat with handles As directed] [shower chair with back and handles As directed] [shower grab bar As directed] [shower mat As directed] tirzepatide (weight loss) (Zepbound) 15 mg subcut QWEEK zolpidem 10 mg PO BEDTIME PRN HPI Comments Details: Can go 3 weeks with no syncope and then get 1-3 spells in a short period of time. ?Still having multiple syncopal episodes and gets rapid palpitation. Gaining weight again in spite of gastric sleeve. She has h/o pseudosz with continuing seizures . She can get 5 Sz then none for 2-3 wks. Sometimes she breathes funny and her hub cutter gives her the inhaler or he thumps or massages her chest. She is averaging 5/ month. Getting more headaches daily. They are different kinds, and fingers twist and eyes roll. They can be short or long and can bite her cheek and tongue. Feels tired after and sleeps. Using CPAP for JOHN. May thrash and fall out of bed. Mutiple EEGs and four x 24 hr ambulatory EEGs have been normal. Echo and 30 day cardiac event monitor normal. She was treated for psychiatric illness in [place] with variable diagnosis between the ages of her 18 and 31 and was then taken off medicines. She fell on a slippery floor and hit her head in February of 2016 and thereafter started having episodes where she shakes and her eyes rolled back. She clenches her teeth drools and is incontinent. This goes on for 5 min. when she is tired afterwards but not confused. The initial few episodes occurred with her being conscious where she was shaking all over. She said that she had a normal 24-hour ambulatory EEG in [place]. She was initially treated with Depakote and then in July of 2016 she was switched to Keppra and Lanictal and the dose has gradually been increased from 500 mg twice a day to 1250 twice a day and Lamictal dose is gone from 25 twice a day to 50 twice a day. She's had 2 hospitalizations in [facility] in the end of May 2017 in the first week of June 2017. On the first occasion, she had had 14 seizures in 1 week and on the second occasion she had 4 seizures in one day. [facility] Medical History (Updated 03/03/25 @ 13:53 by Luis Guevara MD) JOHN (obstructive sleep apnea) Family history of colon cancer in father Varicose veins of bilateral lower extremities with pain Elevated parathyroid hormone Obesity (BMI 30-39.9) Smoking Pre-diabetes COVID-19 vaccine series completed Pseudoseizures Head injury BMI 50.0-59.9, adult JOHN on CPAP Thyroid nodule Condyloma acuminata Mild intermittent asthma in adult without complication Acquired hypothyroidism Bipolar 1 disorder Surgical History History of esophagogastroduodenoscopy (EGD) History of repair of hiatal hernia History of sleeve gastrectomy (12/21/20) History of endometrial ablation History of suburethral sling procedure Hx of removal of cyst History of partial hysterectomy History of section History of tubal ligation Family History Father HTN (hypertension) Glaucoma Mental health disorder Psoriasis Diabetes Substance use disorder Mother Osteoporosis Kidney disease Arthritis Glaucoma Substance use disorder Mental health disorder Maternal Grandfather Mental health disorder Paternal Grandfather Mental health disorder Paternal Grandmother History of breast cancer Social History Household Members: Significant Other Housing: Apartment Are you a primary day care aide to a significant other at home: No Do you presently have visiting nurse or other home services: Yes (significant other) Alcohol intake: current Alcohol intake frequency: holidays/special occasions only Patient Tobacco Use Status: Current everyday Tobacco user Tobacco use type: Cigarette Cigarette Packs Per Day: 0.5 Cigarettes Per Day: 4 Years Smoked: 30 e-Cigarette/Vaping Use: Never Used service: No Current occupational status: disabled Sexual orientation: Straight/Heterosexual Gender identity: Female Cognitive needs: No Hearing needs: No Vision needs: Yes Review of Systems Const Details: Sleep:? Difficulty getting to sleep?denies.? Difficulty maintaining sleep?denies? .? Urge to move legs?denies.? Teeth grinding?denies.? Shouting or Kicking during sleep?denies.? Abnormal behavior during sleep?denies.? Excessive sleep?denies.? Snoring?denies.? Daytime sleepiness?denies.? ?? General/Constitutional:? Change in appetite?denies.? Chills?denies.? Fatigue?denies.? Fever?denies .? Weight gain?denies.? Weight loss?denies.? ?? Ophthalmologic:? Blurred vision?denies.? Diminished visual acuity?denies.? ?? ENT:? Stuffiness?denies.? Decreased hearing?denies.? Dry mouth?denies.? Ear pain?denies.? Nosebleed?denies.? Ringing in the ears?denies.? Sinus pain?denies .? Sore throat?denies.? Swollen glands?denies.? ?? Endocrine:? Cold intolerance?denies.? Excessive thirst?denies.? Frequent urination? denies.? Heat intolerance?denies.? ?? Respiratory:? Shortness of breath?denies.? Chest pain?denies.? Cough?denies.? ?? Breast:? Breast lump?denies.? Nipple discharge?denies.? ?? Cardiovascular:? Chest pain at rest?denies.? Chest pain with exertion?denies.? Claudication?denies.? Dizziness?denies.? Fluid accumulation in the legs?denies.? Irregular heartbeat?denies.? Palpitations?denies.? ?? Gastrointestinal:? Abdominal pain?denies.? Constipation?denies.? Diarrhea?denies.? Difficulty swallowing?denies.? Heartburn?denies.? Nausea?denies.? Rectal bleeding?denies.? ?? Hematology:? Easy bruising?denies.? Prolonged bleeding?denies.? ?? Genitourinary:? Frequent urination?denies.? Urgency?denies.? Incontinence?denies.? Erectile Dysfunction?denies.? ?? Musculoskeletal:? Neck pain?denies.? Back pain?denies.? Muscle aches?denies.? Painful joints?denies.? Sciatica?denies.? Weakness?denies.? ?? Podiatric:? Difficulty walking?denies.? Foot numbness?denies.? ?? Neurologic:? Difficulty swallowing?denies.? Balance difficulty?denies.? Coordination? normal.? Difficulty speaking?denies.? Dizziness?denies.? Fainting?admits.? Gait abnormality?denies.? Headache?admits.? Loss of strength?denies.? Loss of use of extremity?denies.? Low back pain?denies.? Memory loss?denies.? Seizures?admits.? Tics?denies.? Tingling/Numbness?denies.? Transient loss of vision?denies.? Tremor?denies.? ?? Psychiatric:? Anxiety?denies.? Auditory/visual hallucinations?denies.? Delusions?denies .? Depressed mood?denies.? Stressors?denies.? Substance abuse?denies.? Suicidal thoughts?denies.? Physical Exam Neuro Other: Neurological: ? Abnormal neurological findings:??none.? Mental Status:?alert and oriented X 3,?Normal attention, orientation, memory and affect.? Cranial Nerves:?Pupils are equal, round and reactive to light. Fundoscopy shows normal disc bilaterally. External occular muscles are intact. Visual reyes are full, no ptosis. Face is symmetrical, no facial weakness or droop. Facial sensations are normal. Tongue protrudes in midline. Palate elevates symmetrically. Shoulder shrugging is normal..? Motor Examination:?Normal muscle tone, bulk and strength,?No atrophy or fasciculations,?No drift of the extended upper extremities,?Deep tendon reflexes are 2+?,?Plantars are flexor?.? Straight Leg Raising:?90 degrees.? Sensory Exam:?Normal light touch, temperature, pinprick, vibration and joint-position sensations?,?Rhomberg sign is absent.? Coordination:?no ataxia,?no titubation,?vwmgwu-et-lxaj, euyy-npdc-oxiy test and rapid alternating movements were normal.? Gait Exam:?Within normal limits.? Cerebellar Signs:?Obwcih-qv-zlpy and iydx-sn-klow is normal,?no dysdiadochokinesia?.? Extrapyramidal System:?No tremor, rigidity with normal facial expressions,?No bradykinesia, no bradyphrenia. Normal arm swing and posture. No propulsion or retropulsion.? Speech:?Normal,?no dysphasia or dysarthria..? Mini Mental Status Exam: ? Level of Consciousness:?Alert.? Orientation:?Knows correct year, month, date, day and season,?Knows correct city, county and state. Knows correct location and floor.? Registration:?Able to register 3 objects.? Attention:?Serial 7's performed accurately.? Recall:?Able to recall 3 out of 3 objects.? Language:?Normal spontaneous speech, fluency, repetition,naming, comprehension, reading and writing.? Total Score:?30/30.? Assessment & Plan Assessment & Plan (1) Pseudoseizures: Comment: 03/27/2018 normal 24 hour ambulatory EEG. 06/2017 24 hour ambulatory EEG showed no paroxysmal features. Occasional left parietal delta 4 8-20 seconds intermittently. 06/02/2019 24 ambulatory EEG within normal limits 12/03/23 24 hour ambulatory EEG with minimal abnormality due to rare left temporal sharp waves with T3 phase reversal. 12/03/2023 2nd 24 hour ambulatory portion of a 48 hour ambulatory EEG was within normal limits Home sleep test on 12/24/2017: Obstructive sleep apnea with 13 events per hour and a low oxygen of 76%. Code(s): F44.5 - Conversion disorder with seizures or convulsions Category: Medical (2) Syncope and collapse: Code(s): R55 - Syncope and collapse Category: Medical Plan: 06/25/24 Echo cardiogram and 30 day cardiac event monitor normal. (3) Tension headache: Code(s): G44.209 - Tension-type headache, unspecified, not intractable Category: Medical (4) JOHN (obstructive sleep apnea): Comment: Past history of JOHN which improved after initial gastric sleeve surgery, THE CURRENT SLEEP STUDY SHOWS MILD OBSTRUCTIVE SLEEP APNEA, BUT WITH EXCESSIVE SNORING. OPTIONS FOR THE TREATMENT CONSIDERED. SHE WOULD LIKE TO PURSUE WEIGHT REDUCTION, AND DOES NOT WANT TO GO BACK TO CPAP. I TOLD HER THAT SHE SHOULD LOSE ABOUT 10% OF THE CURRENT WEIGHT WHICH WOULD AMOUNT TO ABOUT 20 LB OF WEIGHT. Code(s): G47.33 - Obstructive sleep apnea (adult) (pediatric) Category: Medical Plan Trial of Clonazepam 0.5 mg bid Medications: New clonazepam (Klonopin) 0.5 mg PO BID 60 tabs 3RF 30 days Changed From lamotrigine 100 mg PO BID To lamotrigine 100 mg PO BID 180 tabs 3RF 90 days Coding Level of Care Code Est Pt Level 5 (64660) Diagnoses Pseudoseizures F44.5 Syncope and collapse R55 Tension headache G44.209 JOHN (obstructive sleep apnea) G47.33
--- OUTSIDE RECORDS SUMMARY | 2025-03-04 01:39 | XMS_ITS | Encounter Summary ---
Author Organization [facility] Address [address] [place] [id number] Phone Care Team Providers Care Operations Project Manager Name Role Phone Yi Montano MD Primary Care Provider Reason for Visit * Reason Comments Medication Refill Encounter Details Date Type Department Care Team (Late st Contact Info) Description 01/11/2025 Refill [facility] General Surgical Care [address] [place] [address] [place] [address] Kacy Hernandez MD [address] [facility], 2nd [place] [address] [email or web address] Medication Refill Social History Tobacco Use Types [...] Description 05/05/2025 10:45 AM EST Office Visit [facility] General Surgical Care [address] [place] [address] Elva Ga, LOSS PREVENTION LEADER [address] [facility], 2nd [place] [address] [email or web address] documented as of this encounter Visit Diagnoses Not on filedocumented in this encounter Care Teams Operations Project Manager Relationship Specialty Start Date End Date Yi Montano MD [facility] [place] [address] PCP - General Internal Medicine 01/24/21 documented as of this encounter Additional Source Comments The information contained in this document represents components of the legal health record. It is not the complete legal health record.[facility]
--- OUTSIDE RECORDS SUMMARY | 2025-03-04 01:39 | XMS_ITS | Clinical Summary ---
Author Organization [facility] Address [address] [place], [place] [id number] Phone Care Team Providers Care Landscape Specialist Name Role Phone Yi Montano MD Primary [...] 04/06/20 24 Active tirzepatide, weight loss, (ZEPBOUND) 15 mg/0.5 mL subcutaneous penIndications:C lass 1 obesity due to excess calories without serious comorbidity with body mass index (BMI) of 33.0 to 33.9 in adult INJECT 0.5 ML (15 MG TOTAL) UNDER THE SKIN EVERY 7 DAYS. 2 mL 02/18/20 25 Active tirzepatide, weight loss, (ZEPBOUND) 15 mg/0.5 mL subcutaneous penIndications:C lass 1 obesity due to excess calories without serious comorbidity with body mass index (BMI) of 33.0 to 33.9 in adult Inject 0.5 mL (15 mg total) under the skin every 7 days. 2 mL 01/20/20 25 025 Discontinued Active Problems Problem Noted [...] asked her to have it done at [facility]. She informs me that she does [...] she has obtained a thyroid ultrasound at [facility]. Status post sleeve gastrectomy 08/22/2021 Class [...] shake of 30 g of protein the [employer] life protein shake at 9 AM, she should eat 2 ounces of protein with vegetables at 12 PM, she should have a Yi yogurt or a 15 g of protein [...] have set up an appointment with our training and development coordinator to discuss her eating habits and to [...] any creamy dressings and will only use Croatian's or vinaigrette dressing not greater than 2 [...] at the previous practice from the physician respiratory equipment assistant. I have recommended she stick to [...] Encounters Date Type Department Care Team Description 02/15/2025 Refill [facility] General Surgical Care [address] [place] [address] [place] [address] Kacy Hernandez MD Medication Refill 01/19/2025 2:30 PM EDT Office Visit [facility] Surgical [address] [place] [address] Kacy Hernandez MD Class 1 obesity due to excess calories without serious comorbidity with body mass index (BMI) of 33.0 to 33.9 in adult (Primary Dx); Status post sleeve gastrectomy; Bariatric surgery status 01/11/2025 Refill [facility] Surgical [address] [place] [address] Kacy Hernandez MD Medication Refill 12/29/2024 Telephone [facility] General Surgical Care [address] [place] [address] Kacy Hernandez MD Reschedule from Last 3 Months Immunizations Immunization Administration [...] Description 05/05/2025 10:45 AM EST Office Visit [facility] General Surgical Care [address] [place] [address] Elva Ga, DIRECTOR ENERGY [address] [facility], 2nd [place] [address] Health Maintenance Due Date Last Done Comments [...] on patient's age to complete this topic IPV VACCINES Aged Out No longer eligi ble [...] (04/01/2024 9:25 AM EST) HDL 61 mg/dL [facility] Comment: Interpretation <40 mg/dL: Low HDL cholesterol (major risk factor for CHD) Greater than or equal to 60 mg/dL: High HDL cholesterol ( negative risk factor for CHD) HDL - cholesterol is affected by a number of factors, e.g. smoking, excerise, hormones, sex and age. CHOLESTEROL 245(H) 0 - 240 mg/dL [facility] TRIGLYCERIDES 87 30 - 160 mg/dL [facility] LDL 167(H) 50 - 129 mg/dL [facility] Comment: LDL levels in terms of risk for coronary heart disease: <100 mg/dL: Optimal 100-129 mg/dL: Near or above optimal 130-159 mg/dL: Borderline high 160-189 mg/dL: High >190 mg/dL: Very High CARDIAC RISK RATIO 4.0 3.3 - 4.4 [facility] Blood 04/01/2024 9:25 AM EST 04/01/2024 9:56 AM EST us Kacy Hernandez MD LAB BLOOD BKR ORDERABLES F inal Result [facility] [address] [place] [address] from Last 3 Months or Most Recently Relevant to Health Maintenance Insurance [facility] ACO [id number] [place] [address] [id number] [place] [address] [id number] [place] [address] [id number] [place] [address] [id number] [place] [address] ACO [facility] ACO [id number] [place] [address] ACO [facility] [employer] Care Teams Landscape Specialist Relationship Specialty Start Date End Date Yi Montano MD [facility] [place] [address] PCP - General Internal Medicine 01/24/21 Additional Source Comments The information contained in this document represents components of the legal health record. It is not the complete legal health record.[facility]
--- OUTSIDE RECORDS SUMMARY | 2025-03-04 01:39 | XMS_ITS | Encounter Summary ---
Author Organization [facility] Address [address] [place] [phone] Phone Care Team Providers Care Director Cardiology Name Role Phone Yi Montano MD Primary Care Provider Reason for Visit * Reason Onset Date Comments Reschedule 12/29/2024 Encounter Details Date Type Department Care Team (Late st Contact Info) Description 12/29/2024 Telephone [facility] General Surgical Care [address] [place] [address] Kacy Hernandez MD [address] [facility], [address]nd [place] [address] [email or web address] Reschedule Social History Tobacco Use Types [...] 05/05/2025 10:45 AM EST Office Visit [facility] General Surgical Care [address] [place] [address] Elva Ga, HAND SEWER [address] [facility], [address]nd [place] [address] documented as of this encounter Visit Diagnoses Not on filedocumented in this encounter Care Teams Director Cardiology Relationship Specialty Start Date End Date Yi Montano MD [address] [place] [address] PCP - General Internal Medicine 01/24/21 documented as of this encounter Additional Source Comments The information contained in this document represents components of the legal health record. It is not the complete legal health record.[facility]
== END 2025-03-03 14:10 | disposition home or self-care (01) ==
LOC: HO.HSM 13:38
PROVIDERS: PCP Internal Medicine; Visit Provider Psychiatry & Neurology Neurology
DX: F44.5 Conversion disorder with seizures or convulsions (principal); R55 Syncope and collapse; G44.209 Tension-type headache, unspecified, not intractable; G47.33 Obstructive sleep apnea (adult) (pediatric)
CPT/HCPCS: 99215

== ENCOUNTER → 2025-03-03 13:37 | Outpatient (BNVA) | payer OTHER, SELFPAY | PROVIDERS: PCP Internal Medicine; Visit Provider Psychiatry & Neurology Neurology | DX: R55 Syncope and collapse (principal); G44.209 Tension-type headache, unspecified, not intractable; G47.33 Obstructive sleep apnea (adult) (pediatric); F44.5 Conversion disorder with seizures or convulsions | CPT/HCPCS: 99212 ==

== ENCOUNTER 2025-03-23 10:55 | Outpatient (REF) | payer OTHER, SELFPAY ==
[2025-03-23 12:54] LABS: Folate 3.4 ng/mL (> or = 4.0); Vitamin B12 153 pg/mL (200-900)
== END 2025-03-23 10:56 ==
LOC: HO.LAB 10:55
PROVIDERS: PCP Internal Medicine; Visit Provider Internal Medicine
DX: E53.8 Deficiency of other specified B group vitamins (principal)
CPT/HCPCS: 36415; 82607; 82746